=== PATIENT | female | born 1940 | race Caucasian/White ===

== ENCOUNTER 2016-09-17 04:26 | Inpatient (IN) | payer MEDICARE, MEDICAID ==
[2016-09-17 04:52] LABS: BASOPHILS % (AUTO) 0.4 %; HCT - HEMATOCRIT 50.3 % (37.0-47.0); HGB - HEMOGLOBIN 16.6 g/dL (12.0-16.0); LYMPHOCYTES # (AUTO) 0.8 10^3/uL (1.5-3.5); MEAN CORPUSCULAR HEMOGLOBIN 33.1 pg (27.0-31.0); MEAN CORPUSCULAR HGB CONC 32.9 g/dL (32.0-36.0); MEAN CORPUSCULAR VOLUME 100.4 fL (81.0-99.0); MEAN PLATELET VOLUME 8.7 fL (7.9-10.8); MONOCYTES # (AUTO) 0.6 10^3/uL (0.0-1.0); MONOCYTES % (AUTO) 4.2 %; NEUTROPHILS # (AUTO) 12.1 10^3/uL (1.5-6.6); NEUTROPHILS % (AUTO) 89.4 %; RED BLOOD COUNT 5.01 10^6/uL (4.20-5.40); RED CELL DISTRIBUTION WIDTH 14.5 % (12.0-15.0); UNCORRECTED WHITE BLOOD COUNT 13.5 x10^3/uL; WHITE BLOOD COUNT 13.5 x10^3/uL (4.8-10.8)
[2016-09-17] MEDS ORDERED: ONDANSETRON 4 MG/2 ML VIAL IVP STA (05:00)
[2016-09-17 05:11] LABS: BILIRUBIN,URINE NEGATIVE (NEGATIVE)
[2016-09-17] MEDS ORDERED: SODIUM CHLORIDE 0.9% 1,000 ML IV ONE (05:11)
[2016-09-17 05:12] LABS: UA w/ MICROSCOPIC CHARGE YES
[2016-09-17 05:14] LABS: WBC,URINE >25 /HPF (0-5)
[2016-09-17 05:15] LABS: UR CULTURE IF IND INDICATED
--- NOTE | 2016-09-17 05:22 | XRAY Preliminary Report ---
Exam: XR Chest 1 View IMPRESSION: 1. Mild cardiomegaly and pulmonary vascular congestion. 2. Elevated left hemidiaphragm. [facility] SITE ID: [id number]
--- NOTE | 2016-09-17 05:24 | XRAY Report ---
EXAM: CHEST RADIOGRAPHY EXAM DATE: 09/17/2016 05:14 AM. CLINICAL HISTORY: Chest pain and vomiting. COMPARISON: None. TECHNIQUE: 1 view. FINDINGS: Lungs/Pleura: Pulmonary vascular congestion. Elevated left hemidiaphragm. No definite alveolar consol idation or pleural effusion. No pneumothorax. Mediastinum: Mild cardiomegaly. Other: Scoliosis. Osteopenia. Degenerative changes in the shoulders. IMPRESSION: 1. Mild cardiomegaly and pulmonary vascular congestion. 2. Elevated left hemidiaphragm. [facility] Referring Provider Line: [phone] SITE ID: [id number]
[2016-09-17] MEDS ORDERED: ONDANSETRON 4 MG/2 ML VIAL ONE (05:29)
[2016-09-17 05:32] LABS: ALBUMIN/GLOBULIN RATIO 1.3 (1.0-2.2); BUN - BLOOD UREA NITROGEN 8 mg/dL (6-20); CALCIUM 9.8 mg/dL (8.5-10.3); CARBON DIOXIDE - CO2 32 mmol/L (21-32); CHLORIDE 99 mmol/L (101-111); CREATININE 0.4 mg/dL (0.4-1.0); GFR - MDRD 155 (>89); GLUCOSE 200 mg/dL (70-100); LIPASE > 4800 U/L (22-51); POTASSIUM 2.9 mmol/L (3.5-5.0); SODIUM 140 mmol/L (135-145); TOTAL PROTEIN 7.2 g/dL (6.7-8.2)
--- NOTE | 2016-09-17 06:16 | ED Physician Documentation ---
PD HPI NVD - Stated complaint Stated Complaint: VOMITING,CHEST PAIN - Chief complaint Chief Complaint: General - History obtained from History obtained from: Patient, Family - History of Present Illness Timing - onset: Today Timing - details: Gradual onset, Still present Associated symptoms: Abdominal pain, Chest pain. No: Fever, Hematemesis, Melena Contributing factors: No: Sick contact Similar symptoms before: No diagnosis Recently seen: Not recently seen - Additonal information Additional information: Patient is a 75 year old female with a history of htn who is presenting to the emergency department for abdominal pain, nausea and vomiting. Family states that it started earlier today with a few episodes of vomiting, and one bowel movement, but no diarrhea. Patient also developed chest pain later tonight which prompted the family to bring the patient in for evaluation. Review of Systems Constitutional: denies: Fever, Chills Eyes: denies: Decreased vision Ears: denies: Ear pain, Drainage/discharge Nose: denies: Rhinorrhea / runny nose, Congestion Throat: denies: Dental pain / toothache, Oral lesions / sores Cardiac: denies: Chest pain / pressure Respiratory: denies: Dyspnea, Cough GI: reports: Abdominal Pain, Nausea, Vomiting. denies: Constipation : reports: Discharge. denies: Dysuria, Frequency, Hesitancy Skin: denies: Rash, Lesions Musculoskeletal: denies: Neck pain, Back pain Neurologic: denies: Generalized weakness, Focal weakness, Numbness Immunocompromised: denies: Immunocompromised PD PAST MEDICAL HISTORY - Past Medical History Past Medical History: Yes Cardiovascular: Hypertension Neuro: Dementia, Other Endocrine/Autoimmune: Other HEENT: Macular degeneration Other Past Medical History: Polio as a child, Paralyzed waist down - Past Surgical History Past Surgical History: Yes General: Appendectomy /RUSSIAN RUBBER: section - Present Medications Home Medications: Ambulatory Orders Medication Instructions Recorded Confirmed Metoprolol Succinate 50 mg PO DAILY 09/17/16 09/17/16 Spironolactone 25 mg PO DAILY 09/17/16 09/17/16 traZODone [Desyrel] 50 mg PO HS 09/17/16 09/17/16 - Allergies Allergies/Adverse Reactions: Allergies Allergy/AdvReac Type Severity Reaction Status Date / Time No Known Drug Allergies Allergy Verified 09/17/16 04:36 - Social History Does the pt smoke?: No Smoking Status: Former smoker Does the pt drink ETOH?: No Does the pt have substance abuse?: No - Immunizations Immunizations are current?: Yes - POLST Patient has POLST: No PD ED PE NORMAL - Vitals Vital signs reviewed: Yes - General General: Alert and oriented X 3 - HEENT HEENT: Atraumatic, PERRL - Neck Neck: No JVD - Derm Derm: Normal color, Warm and dry, No rash - Extremities Extremities: No deformity - Neuro Neuro: Alert and oriented X 3 PD ED PE EXPANDED - General General: Alert, In distress - HEENT HEENT: Dry mucous membranes - Cardiac Cardiac: Regular Rate, Abnormal Rate - Abdomen Abdomen: Tender to palpation, Generalized/diffuse. No: Rebound, Guarding - Back Back: Other (scoliosis) Results - Vitals Vitals: Vital Signs - 24 hr 09/17/16 09/17/16 09/17/16 04:31 05:05 07:05 Temperature 36.9 C Heart Rate 88 85 79 Respiratory 18 16 17 Rate Blood Pressure 183/101 H 145/81 H 157/95 H O2 Saturation 95 96 99 Oxygen O2 Source Room air - EKG (time done) 0445 Rate: Rate (enter#) (77) Rhythm: NSR [place]: Normal Intervals: Normal MI Ischemia: T wave inversion Compare to prior EKG: Old EKG unavailable - Labs Labs: Laboratory Tests 09/17/16 09/17/16 09/17/16 04:44 04:44 04:44 WBC 13.5 H RBC 5.01 Hgb 16.6 H Hct 50.3 H MCV 100.4 H MCH 33.1 H MCHC 32.9 RDW 14.5 Plt Count 153 MPV 8.7 Neut # 12.1 H Lymph # 0.8 L [place] # 0.6 Eos # 0.0 Baso # 0.0 Absolute Nucleated RBC 0.00 Nucleated RBCs 0.0 Sodium 140 Potassium 2.9 L Chloride 99 L Carbon Dioxide 32 Anion Gap 9.0 BUN 8 Creatinine 0.4 Estimated GFR (MDRD) 155 Glucose 200 H Calcium 9.8 Total Bilirubin 1.0 AST 60 H ALT 27 Alkaline Phosphatase 88 Lactate Dehydrogenase Troponin I < 0.04 B-Natriuretic Peptide Total Protein 7.2 Albumin 4.0 Globulin 3.2 Albumin/Globulin Ratio 1.3 Lipase > 4800 H TSH Urine Color Urine Clarity Urine pH Ur Specific [place] Urine Protein Urine Glucose (UA) Urine Ketones Urine Occult Blood Urine Nitrite Urine Bilirubin Urine Urobilinogen Ur Leukocyte Esterase Urine RBC Urine WBC Ur Squamous Epith Cells Urine Bacteria Ur Microscopic Review Urine Culture Comments 09/17/16 09/17/16 09/17/16 04:44 04:44 04:44 WBC RBC Hgb Hct MCV MCH MCHC RDW Plt Count MPV Neut # Lymph # [place] # Eos # Baso # Absolute Nucleated RBC Nucleated RBCs Sodium Potassium Chloride Carbon Dioxide Anion Gap BUN Creatinine Estimated GFR (MDRD) Glucose Calcium Total Bilirubin AST ALT Alkaline Phosphatase Lactate Dehydrogenase 234 H Troponin I B-Natriuretic Peptide 27 Total Protein Albumin Globulin Albumin/Globulin Ratio Lipase TSH 0.89 Urine Color Urine Clarity Urine pH Ur Specific [place] Urine Protein Urine Glucose (UA) Urine Ketones Urine Occult Blood Urine Nitrite Urine Bilirubin Urine Urobilinogen Ur Leukocyte Esterase Urine RBC Urine WBC Ur Squamous Epith Cells Urine Bacteria Ur Microscopic Review Urine Culture Comments 09/17/16 05:00 WBC RBC Hgb Hct MCV MCH MCHC RDW Plt Count MPV Neut # Lymph # [place] # Eos # Baso # Absolute Nucleated RBC Nucleated RBCs Sodium Potassium Chloride Carbon Dioxide Anion Gap BUN Creatinine Estimated GFR (MDRD) Glucose Calcium Total Bilirubin AST ALT Alkaline Phosphatase Lactate Dehydrogenase Troponin I B-Natriuretic Peptide Total Protein Albumin Globulin Albumin/Globulin Ratio Lipase TSH Urine Color YELLOW Urine Clarity SL. CLOUDY Urine pH 8.0 H Ur Specific [place] 1.020 Urine Protein 30 H Urine Glucose (UA) NEGATIVE Urine Ketones TRACE Urine Occult Blood MODERATE H Urine Nitrite POSITIVE H Urine Bilirubin NEGATIVE Urine Urobilinogen 2 H Ur Leukocyte Esterase MODERATE H Urine RBC 6-10 H Urine WBC >25 H Ur Squamous Epith Cells RARE Squamous Urine Bacteria Moderate H Ur Microscopic Review INDICATED Urine Culture Comments INDICATED - Rads (name of study) ct abd pelvis Radiology: Final report received (pancreatic edema, enlarged gallbladder) PD MEDICAL DECISION MAKING - ED course Complexity details: reviewed old records, reviewed results, re-evaluated patient , considered differential, d/w patient, d/w family, d/w health management consultant ED course: Patient was seen and examined at bedside. IV access was gained and labs were drawn. ekg was performed and showed t wave inversion but no st segment elevation. urine was collected. Patient was found to have a urinary tract infection and leukocytosis. patient also had elevated lipase. patient was treated with levaquin for the uti and imaging was ordered. Patient returned from imaging the results were reviewed and showed a likely gallstone pancreatitis. director of instruction surgeon was made aware and he stated he would evaluate the patient. Hospitalist was contacted and made aware and stated they would tell the oncoming doctor. Patient was admitted for further evaluation and care. Departure - Departure Disposition: 66 [facility] DC/Xfer Clinical Impression: Acute biliary pancreatitis Condition: Stable
[2016-09-17] MEDS ORDERED: IOPAMIDOL-300 100 ML VIAL IVP ONE (06:21)
--- NOTE | 2016-09-17 06:49 | CT Report ---
EXAM: CT ABDOMEN AND PELVIS EXAM DATE: 09/17/2016 06:25 AM. CLINICAL HISTORY: Abdominal pain, vomiting, elevated lipase. COMPARISONS: None. TECHNIQUE: Routine helical CT imaging was performed through the abdomen and pelvis. IV contrast: Ximena onic. Enteric contrast: No. Reconstructions: Coronal and sagittal. In accordance with CT protocol optimization, one or more of the following dose reduction techniques w ere utilized for this exam: automated exposure control, adjustment of mA and/or KV based on patient s ize, or use of iterative reconstructive technique. FINDINGS: Lung Bases: Left basilar atelectasis or infiltrate. Large hiatal hernia containing essentially the en tire stomach. A portion of the splenic flexure is also in the hernia. Coronary artery calcifications. Liver: Possible fatty infiltration. Gallbladder/Bile Ducts: Distended gallbladder with small calcified gallstones. Possible gallbladder w all thickening or pericholecystic fluid. Spleen: Small low-attenuation foci, too small to characterize. Pancreas: Pancreatic edema consistent with pancreatitis. No abscess or pseudocyst identified. Adrenal Glands: Normal. Kidneys: Small right renal cysts. No masses or hydronephrosis. Peritoneal Cavity/Bowel: No bowel obstruction seen. Colonic diverticula without evidence of diverticu litis. No free air or free fluid. No lymphadenopathy. Appendix is not seen. No evidence of appendicit is. Pelvic Organs: Urinary bladder wall thickening. Visualized pelvic organs are otherwise unremarkable. Vasculature: Moderate atherosclerosis. No abdominal aortic aneurysm. Bones: Osteopenia and scoliosis. Hip dysplasia. Other: Extensive muscle atrophy. IMPRESSION: 1. Pancreatic edema consistent with pancreatitis. No acute complication seen. 2. Distended gallbladder with small calcified stones and possible cholecystitis. 3. Large hiatal hernia containing stomach and a portion of the splenic flexure. 4. No bowel obstruction seen. Colonic diverticula without evidence of diverticulitis. 5. Urinary bladder wall thickening which could be due to hypertrophy or cystitis. 6. Osteopenia and scoliosis with hip dysplasia. [facility] Referring Provider Line: [phone] SITE ID: [id number]
[2016-09-17] MEDS ORDERED: MORPHINE 2 MG/ML CARPUJECT IVP PRN (07:26)
[2016-09-17] MEDS ORDERED: ONDANSETRON ODT 4 MG TABLET TL PRN (07:26)
[2016-09-17] MEDS ORDERED: SODIUM CHLORIDE FLUSH 0.9% 10 ML SYRINGE IVP PRN (07:26)
[2016-09-17] MEDS: AMPICILLIN/SULBACTAM 3 GM in SODIUM CHLORIDE 0.9% MINIBAG 100 ML IV STA ×2 (07:45→07:51)
[2016-09-17 09:01] LABS: CHOL/HDL RATIO 3.6 (<4.4); CHOLESTEROL 216 mg/dL; HDL CHOLESTEROL 60 mg/dL; LDL/HDL RATIO 2.1 (<4.4); TRIGLYCERIDES 150 mg/dL; VLDL CHOLESTEROL 30 mg/dL
[2016-09-17] MEDS: SODIUM CHLORIDE 0.9% 1,000 ML IV SCH ×2 (09:06→19:33)
[2016-09-17] MEDS: PIPERACILLIN/TAZOBACTAM 3.375 GM in SODIUM CHLORIDE 0.9% MINIBAG 100 ML IV SCH ×3 (09:06→20:10)
[2016-09-17] MEDS: POLYETHYLENE GLYCOL 3350 17 GM PACKET PO SCH (09:12)
[2016-09-17] MEDS: METOPROLOL SUCCINATE 50 MG TABLET PO SCH (09:13)
[2016-09-17] MEDS: traZODone 50 MG TABLET PO SCH ×2 (09:13→22:20)
[2016-09-17] MEDS: SPIRONOLACTONE 25 MG TABLET PO SCH (09:13)
[2016-09-17] MEDS: POTASSIUM CHLOR 10 MEQ/100 ML 100 ML IV SCH ×6 (10:17→18:29)
[2016-09-17] MEDS: SODIUM CHLORIDE FLUSH 0.9% 10 ML SYRINGE IVP SCH ×2 (13:19→15:30)
[2016-09-17] MEDS ORDERED: LORazepam 2 MG/ML SYRINGE IVP STA (14:33)
--- NOTE | 2016-09-17 17:58 | HISTORY & PHYSICAL EXAMINATION ---
Chief Complaint - Chief Complaint Chief Complaint: abdominal pain History of Present Illness - Admitted From Admitted From:: emergency department - History Obtained From Records Reviewed: yes History obtained from: patient and her family Exam Limitations: none - History of Present Illness HPI Comment/Other: Patient is a 75-year-old female with a past medical history significant for hypertension, borderline diabetes, dementia, hyperlipidemia, childhood polio with paraplegia, macular degeneration and history of a goiter who presented to the emergency department with a chief complaint of abdominal pain. According to the patient's family and the patient the patient has been having symptoms for the past month where she does get nauseated and bloated after eating. She states that she attributed the symptoms to gas and wasn't overly concerned because they occurred off and on. The patient states that she was in her normal state of health when she went to sleep last night. She states that she woke up at 4:30 AM and she felt nauseated and had to vomit. She states at the same time she began to have excruciating abdominal pain she states that the pain was located in the right upper quadrant. The pain was without any radiation. Patient 's daughter gave her Pepto-Bismol and this patient's symptoms seemed to settle down. The patient went back to bed however less than an hour later the patient woke up with excruciating pain and again vomited. The patient otherwise denies any fevers or chills. The patient denies any headaches blurred vision runny nose or sore throat. The patient denies any chest pain, shortness of air, PND, orthopnea, or any increased lower extremity swelling. The patient also denies any urinary urgency, frequency, dysuria. On presentation to the emergency department the patient was hypertensive and appeared to be in significant distress. Patient's distress with improved after she was given IV pain medication and antiemetics. The patient was found to have an elevated leukocytosis of 13.5 with hypokalemia, lipase of greater than 4800 and a grossly positive UA. CT of the patient's abdomen and pelvis revealed pancreatic edema consistent with pancreatitis. Also there was a distended gallbladder with small calcified stones and possible cholecystitis. The patient was admitted to the medical [facility] for treatment of acute pancreatitis likely secondary to gallstones with acute cholecystitis and cystitis. Patient was started on IV Zosyn, IV fluids, IV narcotics and IV antiemetics. Review of Systems - Other Findings Other Findings: A comprehensive review of systems was performed the pertinent positives and negatives are stated above in the HPI and the remainder of the review of systems is negative. History - Past Medical History Cardiovascular: reports: Hypertension, High cholesterol Respiratory: reports: Other Neuro: reports: Dementia, Other Endocrine/Autoimmune: reports: Type 2 diabetes, Other GI: reports: None : reports: None HEENT: reports: Macular degeneration Psych: reports: None Musculoskeletal: reports: Paraplegia Derm: reports: None MRSA Hx?: No Other Past Medical History: Polio as a child, Paralyzed waist down, goiter on neck - Past Surgical History General: reports: Appendectomy /TIER IN: reports: section - Family & Social History Family History Comment/Other: The patient's sister had a stroke. Patient's brother and sister both had abdominal aortic aneurysms. The patient's sister had breast cancer. Living arrangement: At home Living Situation: With family Social History Notes: The patient is originally from [place] she and her daughter moved to [place] to be closer to the patient's granddaughter whose is in the [facility]. The patient moved here 10 months ago. She is . She is taking care of by her daughter. The patient did smoke but quit over 50 years ago. She denies any alcohol or drug use. - Substance History Use: Uses substance without health or social issues: NONE Abuse: Recurrent use of substance despite neg consequences: NONE Dependence: Experiences withdrawal or developed tolerances: NONE - POLST Patient has POLST: No POLST Status: Full Code Meds/Allgy - Home Medications Home Medications: Ambulatory Orders Medication Instructions Recorded Confirmed Metoprolol Succinate 50 mg PO DAILY 09/17/16 09/17/16 Spironolactone 25 mg PO DAILY 09/17/16 09/17/16 traZODone [Desyrel] 50 mg PO HS 09/17/16 09/17/16 - Allergies Allergies/Adverse Reactions: Allergies Allergy/AdvReac Type Severity Reaction Status Date / Time No Known Drug Allergies Allergy Verified 09/17/16 04:36 Exam - Vital Signs Reviewed Vital Signs: Yes Vital Signs: Vital Signs x48h Temp Pulse Resp BP Pulse Ox 09/17/16 16:33 36.7 C 60 16 112/83 H 94 09/17/16 14:36 36.5 C 71 16 155/81 H 95 - Physical Exam General Appearance: positive: Alert, Mild distress (pain) Eyes Bilateral: positive: Normal inspection, PERRL, EOMI, No lid inflammation, Conjunctivae nml, No scleral icterus ENT: positive: ENT inspection nml, Pharynx nml, Dry mucous membranes. negative : Purulent nasal drainage, Pharyngeal erythema, Oral lesions Neck: positive: Nml inspection, Thyroid nml, No JVD, Trachea midline. negative : Thyromegaly, Lymphadenopathy (R), Lymphadenopathy (L), Carotid bruit, Tracheal deviation Respiratory: positive: Chest non-tender, No respiratory distress, Breath sounds nml. negative: Wheezes, Rales, Rhonchi Cardiovascular: positive: Regular rate & rhythm, No murmur, No gallop Peripheral Pulses: positive: 2+ Abdomen: positive: No organomegaly, Nml bowel sounds, Tenderness (right upper quadrant with positive Chambers sign. Epigastric). negative: Guarding, Rebound, Hepatomegaly Back: positive: Nml inspection. negative: CVA tenderness (R), CVA tenderness (L ) Skin: positive: Color nml, No rash, Dry. negative: Cyanosis, Pallor Extremities: positive: Non-tender, Full ROM, Nml appearance, No pedal edema Neurologic/Psychiatric: positive: Oriented x3, CN's nml (2-12), Motor nml, Sensation nml, Mood/affect nml Conclusion/Plan - Problem List (1) Pancreatitis, gallstone Conclusion/Plan: Patient presented with abdominal pain, nausea and vomiting Patient's lipase was greater than the 4800 LFTs were mildly elevated The patient is nonalcoholic, triglyceride levels were normal, she is not any medication that cause pancreatitis. Most likely cause of patient's pancreatitis is gallstone pancreatitis specially in the setting of gallstones seen on CT scan with cholecystitis. Plan: N.p.o. IV fluids IV antiemetics IV narcotics Surgery consult for possible cholecystectomy during hospitalization Monitor lipase and amylase daily Monitor LFTs MRCP (2) Cholecystitis Conclusion/Plan: Patient presented with right upper quadrant abdominal pain, nausea, vomiting Patient had leukocytosis but no fever did have positive Chambers sign CT abdomen pelvis did show evidence of cholecystitis. Plan: IV Zosyn IV fluids N.p.o. Surgical consult for cholecystectomy (3) Cystitis Conclusion/Plan: She presented with abdominal pain, nausea, vomiting and had a leukocytosis Urinalysis was grossly positive CT abdomen and pelvis showed evidence of cystitis Plan: IV Zosyn Urine culture pending (4) Hyperglycemia Conclusion/Plan: Patient has history of borderline diabetes her blood sugar on presentation was 200 She could have hyperglycemia secondary to ongoing infection and stress. We will get a A1c if it is elevated patient may need to be started on diabetic treatment with sliding scale insulin (5) Hypokalemia Conclusion/Plan: secondary to vomiting Potassium on presentation 2.9 Replace potassium with K. riders (6) Hypertension Conclusion/Plan: likely secondary to severe pain improved after pain control Monitor closely Continue home medication Continue pain control (7) Prophylactic use of low molecular weight heparin for venous thromboembolism Conclusion/Plan: place on Lovenox while hospitalized - Lab Results Lab results reviewed: Yes Fish Bones: 09/17/16 04:44 09/17/16 04:44 Other Lab Results: Laboratory Results WBC 13.5 x10^3/uL (4.8-10.8) H 09/17/16 04:44 RBC 5.01 10^6/uL (4.20-5.40) 09/17/16 04:44 Hgb 16.6 g/dL (12.0-16.0) H 09/17/16 04:44 Hct 50.3 % (37.0-47.0) H 09/17/16 04:44 MCV 100.4 fL (81.0-99.0) H 09/17/16 04:44 MCH 33.1 pg (27.0-31.0) H 09/17/16 04:44 MCHC 32.9 g/dL (32.0-36.0) 09/17/16 04:44 RDW 14.5 % (12.0-15.0) 09/17/16 04:44 Plt Count 153 10^3/uL (130-450) 09/17/16 04:44 MPV 8.7 fL (7.9-10.8) 09/17/16 04:44 Neut # 12.1 10^3/uL (1.5-6.6) H 09/17/16 04:44 Lymph # 0.8 10^3/uL (1.5-3.5) L 09/17/16 04:44 [place] # 0.6 10^3/uL (0.0-1.0) 09/17/16 04:44 Eos # 0.0 10^3/uL (0.0-0.7) 09/17/16 04:44 Baso # 0.0 10^3/uL (0.0-0.1) 09/17/16 04:44 Absolute Nucleated RBC 0.00 x10^3/uL 09/17/16 04:44 Nucleated RBCs 0.0 /100WBC 09/17/16 04:44 Sodium 140 mmol/L (135-145) 09/17/16 04:44 Potassium 2.9 mmol/L (3.5-5.0) L 09/17/16 04:44 Chloride 99 mmol/L (101-111) L 09/17/16 04:44 Carbon Dioxide 32 mmol/L (21-32) 09/17/16 04:44 Anion Gap 9.0 (6-13) 09/17/16 04:44 BUN 8 mg/dL (6-20) 09/17/16 04:44 Creatinine 0.4 mg/dL (0.4-1.0) 09/17/16 04:44 Estimated GFR (MDRD) 155 (>89) 09/17/16 04:44 Glucose 200 mg/dL (70-100) H 09/17/16 04:44 Calcium 9.8 mg/dL (8.5-10.3) 09/17/16 04:44 Total Bilirubin 1.0 mg/dL (0.2-1.0) 09/17/16 04:44 AST 60 IU/L (10-42) H 09/17/16 04:44 ALT 27 IU/L (10-60) 09/17/16 04:44 Alkaline Phosphatase 88 IU/L (42-121) 09/17/16 04:44 Lactate Dehydrogenase 234 IU/L (91-225) H 09/17/16 04:44 Troponin I < 0.04 ng/mL (<0.49) 09/17/16 04:44 B-Natriuretic Peptide 27 pg/mL (5-100) 09/17/16 04:44 Total Protein 7.2 g/dL (6.7-8.2) 09/17/16 04:44 Albumin 4.0 g/dL (3.2-5.5) 09/17/16 04:44 Globulin 3.2 g/dL (2.1-4.2) 09/17/16 04:44 Albumin/Globulin Ratio 1.3 (1.0-2.2) 09/17/16 04:44 Triglycerides 150 mg/dL (-149) H 09/17/16 04:44 Cholesterol 216 mg/dL (-199) H 09/17/16 04:44 LDL Cholesterol, Calc 126 mg/dL (-129) 09/17/16 04:44 VLDL Cholesterol 30 mg/dL 09/17/16 04:44 HDL Cholesterol 60 mg/dL (60-) 09/17/16 04:44 LDL/HDL Ratio 2.1 (<4.4) 09/17/16 04:44 Cholesterol/HDL Ratio 3.6 (<4.4) 09/17/16 04:44 Lipase > 4800 U/L (22-51) H 09/17/16 04:44 TSH 0.89 uIU/mL (0.34-5.60) 09/17/16 04:44 Urine Color YELLOW 09/17/16 05:00 Urine Clarity SL. CLOUDY (CLEAR) 09/17/16 05:00 Urine pH 8.0 PH (5.0-7.5) H 09/17/16 05:00 Ur Specific [place] 1.020 (1.002-1.030) 09/17/16 05:00 Urine Protein 30 mg/dL (NEGATIVE) H 09/17/16 05:00 Urine Glucose (UA) NEGATIVE mg/dL (NEGATIVE) 09/17/16 05:00 Urine Ketones TRACE mg/dL (NEGATIVE) 09/17/16 05:00 Urine Occult Blood MODERATE (NEGATIVE) H 09/17/16 05:00 Urine Nitrite POSITIVE (NEGATIVE) H 09/17/16 05:00 Urine Bilirubin NEGATIVE (NEGATIVE) 09/17/16 05:00 Urine Urobilinogen 2 E.U./dL (NORMAL) H 09/17/16 05:00 Ur Leukocyte Esterase MODERATE (NEGATIVE) H 09/17/16 05:00 Urine RBC 6-10 /HPF (0-5) H 09/17/16 05:00 Urine WBC >25 /HPF (0-5) H 09/17/16 05:00 Ur Squamous Epith Cells RARE Squamous (<= Few) 09/17/16 05:00 Urine Bacteria Moderate /HPF (None Seen) H 09/17/16 05:00 Ur Microscopic Review INDICATED 09/17/16 05:00 Urine Culture Comments INDICATED 09/17/16 05:00 - Diagnostic Imaging Results Diagnostic Imaging Results: positive: Final report reviewed Diagnostic Imaging Results Comments: CT abdomen and pelvis 1. Pancreatic edema consistent with pancreatitis. No acute complication seen. 2. Distended gallbladder with calcified stone and possible cholecystitis. 3. Large hiatal hernia containing stomach with and a portion of the splenic flexure. 4. No bowel obstruction seen. Colonic diverticula without evidence of diverticulitis. 5. Urinary bladder wall which could due to hypertrophic or cystitis. 6. Osteopenia and scoliosis dysplasia. Chest x-ray 1. Mild cardiomegaly and pulmonary vascular congestion. 2. Elevated left hemidiaphragm - EKG Results EKG Interpreted Independently: Yes EKG Findings: no ST elevations normal sinus rhythm Issues/Core Measures - Anticipated LOS Anticipated Stay Length: 2 or more midnights - DVT/VTE - Prophylaxis VTE/DVT Prophylaxis med ordered at admit?: Yes
--- NOTE | 2016-09-17 18:12 | MRI Preliminary Report ---
Exam: MRI MRCP W/O IMPRESSION: 1. Multiple small gallstones and/or mild, sludge. There appears to be mild gallbladder wall thickenin g with edematous wall and/or mild pericholecystic fluid. This could represent acute cholecystitis in the appropriate clinical setting. A right upper quadrant ultrasound could further evaluate. The commo n duct measures 6.5 mm, within normal limits. No definite choledocholithiasis is seen. Motion artifac t limited. 2. Moderate acute pancreatitis. Otherwise, as above. [facility] SITE ID: [id number]
--- NOTE | 2016-09-17 18:20 | MRI Report ---
EXAM: MR ABDOMEN WITHOUT CONTRAST (MR CHOLANGIOPANCREATOGRAPHY) EXAM DATE: 09/17/2016 04:28 PM. CLINICAL HISTORY: Gallstone pancreatitis, evaluate for common bile duct stone. COMPARISON: CT abdomen and pelvis 09/17/2016. TECHNIQUE: Multiplanar breath-hold T1 and T2 sequences obtained through the abdomen on an MR scanner. Dedicated 2D and 3D MRCP sequences obtained through the biliary and pancreatic ducts. No intravenous contrast given. FINDINGS: Motion artifact limited. Patient unable to hold breath for breath-hold scans. Motion artifact signifi cantly limits multiple sequences including the MRCP images. Liver contour appears within normal limits. No definite focal liver lesion is seen. Multiple small gallstones and/or mild gallbladder sludge. There appears to be mild gallbladder wall t hickening with edematous wall and/or mild pericholecystic fluid. This could represent acute cholecyst itis in the appropriate clinical setting. A right upper quadrant ultrasound could further evaluate. T he common duct measures 6.5 mm, within normal limits. No definite choledocholithiasis is seen. Moderate amount of peripancreatic edema is seen at the head, neck, and body region as seen with acute pancreatitis. No definite pancreatic duct dilatation is seen. No splenomegaly. Possible very tiny splenic cyst. Adrenals appear within normal limits. No hydronephrosis seen in the kidneys. Multiple right renal cysts, the largest seen at the anterior m edial aspect measuring 1.2 cm. No acute bowel findings are seen. The patient has a large hiatal hernia which contains most of the st omach. Thoracolumbar scoliosis. Muscle atrophy. IMPRESSION: 1. Multiple small gallstones and/or mild gallbladder sludge. There appears to be mild gallbladder wal l thickening with edematous wall and/or mild pericholecystic fluid. This could represent acute cholec ystitis in the appropriate clinical setting. A right upper quadrant ultrasound could further evaluate . The common duct measures 6.5 mm, within normal limits. No definite choledocholithiasis is seen. Mot ion artifact limited. 2. Moderate acute pancreatitis. Otherwise, as above. [facility] Referring Provider Line: [phone] SITE ID: [id number]
[2016-09-18] MEDS: SODIUM CHLORIDE 0.9% 1,000 ML IV SCH ×4 (00:07→18:11)
[2016-09-18] MEDS: PIPERACILLIN/TAZOBACTAM 3.375 GM in SODIUM CHLORIDE 0.9% MINIBAG 100 ML IV SCH ×4 (01:37→20:09)
--- NOTE | 2016-09-18 01:59 | SURGERY HX AND PHYSICAL(T) ---
Surgical History & Physical - Chief Complaint/HPI Chief Complaint: Gallstone pancreatitis - PMH/PSH/Social Hx Does the pt have a hx of MRSA?: No Neurological History: Dementia, Other Eyes, Ears, Nose, Throat: Macular degeneration Cardiovascular: Hypertension, High cholesterol Respiratory: Other Skin: None Endocrine/Autoimmune: Type 2 diabetes, Other Gastrointestinal: None Is Patient ?: No Urinary: None Musculoskeletal: Paraplegia Blood Disorders: None Psychiatric: None PMH Other: Polio as a child, Paralyzed waist down, goiter on neck General: Appendectomy Smoking Status: Never smoker Does the pt drink ETOH?: No Does the pt have substance abuse?: No - Family Hx Family Hx: Unremarkable - Home Meds and Allergies Home Medications: Metoprolol Succinate 50 mg PO DAILY 09/17/16 Spironolactone 25 mg PO DAILY 09/17/16 traZODone [Desyrel] 50 mg PO HS 09/17/16 Allergies/Adverse Reactions: Allergies Allergy/AdvReac Type Severity Reaction Status Date / Time No Known Drug Allergies Allergy Verified 09/17/16 04:36 - Review of Systems Constitutional: Poor appetite - Vital Signs Heart Rate: 77 Blood Pressure: 105/88 Temperature: 37.2 C Respiratory Rate: 16 O2 Saturation: 100 Weight (kg): 52.163 kg Height: 1.37 m - Patient Review Patient Review: Problems were reviewed with the patient during this visit. Medications were reviewed with the patient during this visit. Allergies were reviewed this patient during this visit. Pertinent Tests Reviewed: All pertitent test for this patient were reviewed. - Assessment & Plan Assessment and Plan: The computer information is incorrect. Dr. Obando called me (Dr. Carl and not Dr. Nagel) this morning for consultation on this 75-year-old female in order for her to be evaluated for gallstone pancreatitis. The patient was evaluated in room 2208 at [facility] floor. She was evaluated in the presence of her daughter and I believe her 2 granddaughters. The patient is densely demented and this was worsened by some Ativan that she had received. When I evaluated her she could not answer any questions and she was picking at the sheets and blanket on her bed. All the information was gleaned either from the chart or her daughter and granddaughters. The patient has had a history of some chronic right upper quadrant pain but it was never to the point where it was when she came to the hospital. Her appetite is not what it should be and when she had this pain she had just finished eating a turkey sandwich. She apparently really likes turkey sandwiches. There has not been a previous evaluation of her gallbladder. In discussing the symptoms of gallstones the daughter as well as her 2 granddaughters state that she may have had attacks in the past but they were never this severe. She has not been jaundiced. Additionally, the patient review stated above is incorrect as I could not review her medications, allergies or past history with the patient due to her dense dementia. General: 75 year old female, appears older than stated age HEENT: Normocephalic, atraumatic, extraocular movement intact, mucous membranes pink and moist, sclera anicteric and not injected Neck: Supple without pain on palpation, mass or bruit Cardiac: Regular rate and rhythm without rub, gallop, or murmur Chest: Clear to auscultation bilaterally Abdomen: Obese, soft, tender in epigastrium, normoactive bowel sounds, no hepatomegaly, no splenomegaly Genitourinary: Deferred Rectal: Deferred Extremities: Clear evidence of polio in lower extremities. Moving arms and hands with purpose picking at the sheets and blanket. Gait: Not evaluated - patient bed bound. Psychiatric: No orientation. Did not speak one word to me. Plan: Laparoscopic cholecystectomy, possible open cholecystectomy, intraoperative cholangiogram, possible common bile duct exploration as soon as the patient's pancreatitis has resolved. The indications, procedure, alternatives including no surgery, possible risks including infection (deep or superficial), bleeding requiring transfusion (with all of its risks), common bile duct injury and were fully explained to the family and all questions answered. I shakila pictures to help describe what the gallbladder is and how it works. I also explained the pathophysiology. I explained that following the surgery I did not want her lifting anything over 15 pounds for 6 weeks to allow for optimal healing and to decrease the likelihood that a hernia would occur. All questions were fully answered. Verbal consent was obtained and written consent will be obtained. The patient, in preparation for surgery will be nothing by mouth, receive a soap and water shower, and receive 2 g of Ancef with induction. I asked her to contact me with any surgical questions and her concerns and she stated that she would. I asked the family to let me know if there is any way we can make her say at [facility] more comfortable and they stated that they would let me know. 45 minutes of [id number] time spent with the patient and her family, over 80% in discussion and coordination of her care
[2016-09-18] MEDS: SODIUM CHLORIDE FLUSH 0.9% 10 ML SYRINGE IVP SCH ×3 (05:02→22:03)
[2016-09-18 06:29] LABS: BASOPHILS % (AUTO) 0.2 %; EOSINOPHILS % (AUTO) 0.1 %; HCT - HEMATOCRIT 42.2 % (37.0-47.0); HGB - HEMOGLOBIN 13.9 g/dL (12.0-16.0); LYMPHOCYTES # (AUTO) 0.8 10^3/uL (1.5-3.5); LYMPHOCYTES % (AUTO) 12.4 %; MEAN CORPUSCULAR HEMOGLOBIN 33.5 pg (27.0-31.0); MEAN CORPUSCULAR HGB CONC 32.8 g/dL (32.0-36.0); MEAN CORPUSCULAR VOLUME 102.1 fL (81.0-99.0); MEAN PLATELET VOLUME 8.6 fL (7.9-10.8); MONOCYTES # (AUTO) 0.5 10^3/uL (0.0-1.0); MONOCYTES % (AUTO) 7.7 %; NEUTROPHILS % (AUTO) 79.6 %; RED BLOOD COUNT 4.13 10^6/uL (4.20-5.40); RED CELL DISTRIBUTION WIDTH 14.9 % (12.0-15.0); UNCORRECTED WHITE BLOOD COUNT 6.3 x10^3/uL; WHITE BLOOD COUNT 6.3 x10^3/uL (4.8-10.8)
[2016-09-18 06:34] LABS: ALBUMIN/GLOBULIN RATIO 1.2 (1.0-2.2); AMYLASE 388 U/L (28-100); BUN - BLOOD UREA NITROGEN 5 mg/dL (6-20); CALCIUM 8.1 mg/dL (8.5-10.3); CARBON DIOXIDE - CO2 23 mmol/L (21-32); CHLORIDE 108 mmol/L (101-111); CREATININE 0.3 mg/dL (0.4-1.0); GFR - MDRD 216 (>89); GLUCOSE 67 mg/dL (70-100); LIPASE 146 U/L (22-51); MAGNESIUM 1.5 mg/dL (1.7-2.8); PHOSPHORUS 2.7 mg/dL (2.5-4.6); POTASSIUM 3.7 mmol/L (3.5-5.0); SODIUM 138 mmol/L (135-145); TOTAL PROTEIN 5.7 g/dL (6.7-8.2)
[2016-09-18 06:36] LABS: CALCIUM, IONIZED 1.06 mmol/L (1.15-1.33); VBG PH 7.301 (7.31-7.41)
[2016-09-18] MEDS ORDERED: DEXTROSE 50% ABBOJECT 25 GM/50 ML SYRINGE IVP ONE (07:15)
[2016-09-18] MEDS: METOPROLOL SUCCINATE 50 MG TABLET PO SCH (08:05)
[2016-09-18] MEDS: SPIRONOLACTONE 25 MG TABLET PO SCH (08:05)
[2016-09-18 08:06] LABS: HEMOGLOBIN A1C 0.52 g/dL
[2016-09-18] MEDS: POLYETHYLENE GLYCOL 3350 17 GM PACKET PO SCH (10:35)
[2016-09-18] MEDS ORDERED: SODIUM CHLORIDE FLUSH 0.9% 10 ML SYRINGE IVP ONE (14:41)
--- NOTE | 2016-09-18 15:37 | PROVIDER PROGRESS NOTE ---
Assessment/Plan - Problem List (1) Pancreatitis, gallstone Assessment/Plan: Patient presented with abdominal pain, nausea and vomiting Patient's lipase was greater than the 4800 LFTs were mildly elevated The patient is nonalcoholic, triglyceride levels were normal, she is not any medication that cause pancreatitis. Most likely cause of patient's pancreatitis is gallstone pancreatitis specially in the setting of gallstones seen on CT scan with cholecystitis. MRCP negative for CBD stones Lipase improved to 146 and amylase is 388 Patient feeling much better Pain and nausea controlled Plan: Start clear liquid diet Surgery to remove gallbladder in next 1-2 days Continue to monitor (2) Cholecystitis Conclusion/Plan: Patient presented with right upper quadrant abdominal pain, nausea, vomiting Patient had leukocytosis but no fever did have positive Chambers sign CT abdomen pelvis did show evidence of cholecystitis. WBC improved down to 6.3 Patient improving Pain and nausea controlled Plan: COntinue zosyn day 2 SUrgery consulted will remove gallbladder in next 1-2 days (3) Cystitis Conclusion/Plan: She presented with abdominal pain, nausea, vomiting and had a leukocytosis Urinalysis was grossly positive CT abdomen and pelvis showed evidence of cystitis Patient on Zosyn day 2 WBC improved No fevers Awaiting urine culture (4) Hyperglycemia Conclusion/Plan: HbA1C is 5.4 Patient hypoglycemic this morning Will start on liquid diet (5) Hypokalemia Conclusion/Plan: secondary to vomiting Replaced K normal (6) Hypertension Conclusion/Plan: Stable Continue home meds (7) Prophylactic use of low molecular weight heparin for venous thromboembolism Conclusion/Plan: place on Lovenox while hospitalized - Current Meds Current Meds: Current Medications Generic Name Dose Route Start Last Admin Trade Name Kiah PRN Reason Stop Dose Admin Sodium Chloride 1,000 mls @ 150 mls/hr 09/17/16 08:00 09/18/16 10:31 Normal Saline 0.9% IV 150 mls/hr .Q6H40M DARSHANA Administration Piperacillin Sod/Tazobactam 100 mls @ 200 mls/hr 09/17/16 08:00 09/18/16 14:27 Sod 3.375 gm/ Sodium Chloride IV 200 mls/hr Q6H DARSHANA Administration Metoprolol Succinate 50 mg 09/17/16 09:00 09/18/16 08:05 Toprol Xl PO 50 mg DAILY DARSHANA Administration Polyethylene Glycol 17 gm 09/17/16 09:00 09/18/16 10:35 Miralax PO Not Given DAILY DARSHANA Sodium Chloride 10 ml 09/17/16 07:26 09/17/16 17:44 Normal Saline Flush 0.9% IVP 10 ml PRN PRN Administration NEEDED PER PROVIDER ORDERS Sodium Chloride 10 ml 09/17/16 14:00 09/18/16 14:42 Normal Saline Flush 0.9% IVP Not Given Q8HR DARSHANA Spironolactone 25 mg 09/17/16 09:00 09/18/16 08:05 Aldactone PO 25 mg DAILY DARSHANA Administration Trazodone HCl 50 mg 09/17/16 09:00 09/17/16 22:20 Desyrel PO Not Given HS DARSHANA - Lab Result Lab results reviewed: Yes Fish Bone Diagrams: 09/18/16 06:05 09/18/16 06:05 - EKG Results EKG Interpreted Independently: Yes - Diagnostic Imaging Results Diagnostic Imaging Results: Final report reviewed - Additional Planning Condition/Complexity: Improved My Orders: My Active Orders 09/18/16 16:00 Magnesium Oxide [Mag Ox] 400 mg PO DAILYWM 09/18/16 Lunch DIET [Clear Liquid Diet] [DIET] 09/19/16 05:00 AMYLASE [CHEM] DAILYLAB CBC - COMP BLD CT W/AUTO DIFF [HEME] DAILYLAB CMP, RFLX TO IONIZED CA IF [CHEM] DAILYLAB LIPASE [CHEM] DAILYLAB MAGNESIUM [CHEM] DAILYLAB PHOSPHORUS [CHEM] DAILYLAB 09/20/16 05:00 AMYLASE [CHEM] DAILYLAB CBC - COMP BLD CT W/AUTO DIFF [HEME] DAILYLAB CMP, RFLX TO IONIZED CA IF [CHEM] DAILYLAB LIPASE [CHEM] DAILYLAB MAGNESIUM [CHEM] DAILYLAB PHOSPHORUS [CHEM] DAILYLAB 09/21/16 05:00 AMYLASE [CHEM] DAILYLAB CBC - COMP BLD CT W/AUTO DIFF [HEME] DAILYLAB CMP, RFLX TO IONIZED CA IF [CHEM] DAILYLAB LIPASE [CHEM] DAILYLAB MAGNESIUM [CHEM] DAILYLAB PHOSPHORUS [CHEM] DAILYLAB 09/22/16 05:00 AMYLASE [CHEM] DAILYLAB CBC - COMP BLD CT W/AUTO DIFF [HEME] DAILYLAB CMP, RFLX TO IONIZED CA IF [CHEM] DAILYLAB LIPASE [CHEM] DAILYLAB MAGNESIUM [CHEM] DAILYLAB PHOSPHORUS [CHEM] DAILYLAB Consult/Specialty: Surgery Plan Discussed with:: Patient, Family Time Spent: 31-60 minutes Subjective - Subjective Patient Reports: Feeling Better (Patient states her abdominal pain and nausea have resolved. She states her abd is strainer tender. She wants to eat. She denies any fevers.) Nursing Reports: No Complaints Objective Vital Signs: Vital Signs - 24 hr 09/17/16 09/17/16 09/17/16 16:33 20:32 22:14 Temperature 36.7 C 36.4 C L Heart Rate Heart Rate [ 60 75 73 Brachial] Respiratory 16 16 Rate Blood Pressure Blood Pressure [Left Brachial artery] Blood Pressure 112/83 H 155/85 H 150/75 H [Right Brachial artery] O2 Saturation 94 93 09/18/16 09/18/16 09/18/16 00:09 02:17 03:29 Temperature 37.2 C 37.2 C 36.7 C Heart Rate 77 Heart Rate [ 75 77 Brachial] Respiratory 16 16 16 Rate Blood Pressure 105/88 H Blood Pressure [Left Brachial artery] Blood Pressure 134/82 H [Right Brachial artery] O2 Saturation 100 100 99 09/18/16 09/18/16 08:08 13:16 Temperature 36.9 C 37.2 C Heart Rate Heart Rate [ 83 80 Brachial] Respiratory 18 18 Rate Blood Pressure Blood Pressure 125/58 L 160/77 H [Left Brachial artery] Blood Pressure [Right Brachial artery] O2 Saturation 99 95 Oxygen O2 Source Room air I&O (Last 24 Hrs): Intake and Output Totals x24h 09/16/16 09/17/16 09/18/16 23:59 23:59 23:59 Intake Total 3374 2596 Output Total 200 300 Balance 3174 2296 General: Alert, Oriented x3, Cooperative, No acute distress HEENT: Atraumatic, PERRLA, EOMI, Mucous membr. moist/pink Neck: Supple, No JVD, No thyromegaly, +2 carotid pulse wo bruit, No LAD Lymphatic: no adenopathy Neuro: Alert, Non Focal, CN 2-12 Grossly Intact, Oriented Times 3 Cardiovascular: Regular rate, Normal S1, Normal S2, No murmurs Respiratory: Chest non-tender, No respiratory distress, Breath sounds nml Abdomen: Normal bowel sounds, Other (Mildly tender in the RUQ much improved) Extremities: No clubbing, No cyanosis, No edema, Normal pulses Skin: No rashes, No breakdown - Results Results: Laboratory Results WBC 6.3 x10^3/uL (4.8-10.8) 09/18/16 06:05 RBC 4.13 10^6/uL (4.20-5.40) L 09/18/16 06:05 Hgb 13.9 g/dL (12.0-16.0) 09/18/16 06:05 Hct 42.2 % (37.0-47.0) 09/18/16 06:05 MCV 102.1 fL (81.0-99.0) H 09/18/16 06:05 MCH 33.5 pg (27.0-31.0) H 09/18/16 06:05 MCHC 32.8 g/dL (32.0-36.0) 09/18/16 06:05 RDW 14.9 % (12.0-15.0) 09/18/16 06:05 Plt Count 103 10^3/uL (130-450) L 09/18/16 06:05 MPV 8.6 fL (7.9-10.8) 09/18/16 06:05 Neut # 5.0 10^3/uL (1.5-6.6) 09/18/16 06:05 Lymph # 0.8 10^3/uL (1.5-3.5) L 09/18/16 06:05 [place] # 0.5 10^3/uL (0.0-1.0) 09/18/16 06:05 Eos # 0.0 10^3/uL (0.0-0.7) 09/18/16 06:05 Baso # 0.0 10^3/uL (0.0-0.1) 09/18/16 06:05 Absolute Nucleated RBC 0.00 x10^3/uL 09/18/16 06:05 Nucleated RBCs 0.0 /100WBC 09/18/16 06:05 VBG pH 7.301 (7.31-7.41) L 09/18/16 06:05 Ionized Calcium 1.06 mmol/L (1.15-1.33) L 09/18/16 06:05 Sodium 138 mmol/L (135-145) 09/18/16 06:05 Potassium 3.7 mmol/L (3.5-5.0) 09/18/16 06:05 Chloride 108 mmol/L (101-111) 09/18/16 06:05 Carbon Dioxide 23 mmol/L (21-32) 09/18/16 06:05 Anion Gap 7.0 (6-13) 09/18/16 06:05 BUN 5 mg/dL (6-20) L 09/18/16 06:05 Creatinine 0.3 mg/dL (0.4-1.0) L 09/18/16 06:05 Estimated GFR (MDRD) 216 (>89) 09/18/16 06:05 Glucose 67 mg/dL (70-100) L 09/18/16 06:05 POC Whole Bld Glucose 121 mg/dL (70 - 100) H 09/18/16 07:28 Glycated Hemoglobin 5.4 % (4.6-6.2) 09/18/16 06:05 Estim Average Glucose 108 (70-100) H 09/18/16 06:05 Calcium 8.1 mg/dL (8.5-10.3) L 09/18/16 06:05 Ionized Calcium YES 09/18/16 06:05 Phosphorus 2.7 mg/dL (2.5-4.6) 09/18/16 06:05 Magnesium 1.5 mg/dL (1.7-2.8) L 09/18/16 06:05 Total Bilirubin 1.0 mg/dL (0.2-1.0) 09/18/16 06:05 AST 21 IU/L (10-42) 09/18/16 06:05 ALT 16 IU/L (10-60) 09/18/16 06:05 Alkaline Phosphatase 56 IU/L (42-121) 09/18/16 06:05 Lactate Dehydrogenase 234 IU/L (91-225) H 09/17/16 04:44 Troponin I < 0.04 ng/mL (<0.49) 09/17/16 04:44 B-Natriuretic Peptide 27 pg/mL (5-100) 09/17/16 04:44 Total Protein 5.7 g/dL (6.7-8.2) L 09/18/16 06:05 Albumin 3.1 g/dL (3.2-5.5) L 09/18/16 06:05 Globulin 2.6 g/dL (2.1-4.2) 09/18/16 06:05 Albumin/Globulin Ratio 1.2 (1.0-2.2) 09/18/16 06:05 Triglycerides 150 mg/dL (-149) H 09/17/16 04:44 Cholesterol 216 mg/dL (-199) H 09/17/16 04:44 LDL Cholesterol, Calc 126 mg/dL (-129) 09/17/16 04:44 VLDL Cholesterol 30 mg/dL 09/17/16 04:44 HDL Cholesterol 60 mg/dL (60-) 09/17/16 04:44 LDL/HDL Ratio 2.1 (<4.4) 09/17/16 04:44 Cholesterol/HDL Ratio 3.6 (<4.4) 09/17/16 04:44 Amylase 388 U/L (28-100) H 09/18/16 06:05 Lipase 146 U/L (22-51) H 09/18/16 06:05 TSH 0.89 uIU/mL (0.34-5.60) 09/17/16 04:44 Urine Color YELLOW 09/17/16 05:00 Urine Clarity SL. CLOUDY (CLEAR) 09/17/16 05:00 Urine pH 8.0 PH (5.0-7.5) H 09/17/16 05:00 Ur Specific [place] 1.020 (1.002-1.030) 09/17/16 05:00 Urine Protein 30 mg/dL (NEGATIVE) H 09/17/16 05:00 Urine Glucose (UA) NEGATIVE mg/dL (NEGATIVE) 09/17/16 05:00 Urine Ketones TRACE mg/dL (NEGATIVE) 09/17/16 05:00 Urine Occult Blood MODERATE (NEGATIVE) H 09/17/16 05:00 Urine Nitrite POSITIVE (NEGATIVE) H 09/17/16 05:00 Urine Bilirubin NEGATIVE (NEGATIVE) 09/17/16 05:00 Urine Urobilinogen 2 E.U./dL (NORMAL) H 09/17/16 05:00 Ur Leukocyte Esterase MODERATE (NEGATIVE) H 09/17/16 05:00 Urine RBC 6-10 /HPF (0-5) H 09/17/16 05:00 Urine WBC >25 /HPF (0-5) H 09/17/16 05:00 Ur Squamous Epith Cells RARE Squamous (<= Few) 09/17/16 05:00 Urine Bacteria Moderate /HPF (None Seen) H 09/17/16 05:00 Ur Microscopic Review INDICATED 09/17/16 05:00 Urine Culture Comments INDICATED 09/17/16 05:00
[2016-09-18] MEDS: MAGNESIUM OXIDE 400 MG TABLET PO SCH (15:54)
[2016-09-18] MEDS: ONDANSETRON 4 MG/2 ML VIAL IVP PRN (20:14)
[2016-09-18] MEDS: traZODone 50 MG TABLET PO SCH (22:03)
[2016-09-19] MEDS: ONDANSETRON 4 MG/2 ML VIAL IVP PRN (01:36)
[2016-09-19] MEDS: PIPERACILLIN/TAZOBACTAM 3.375 GM in SODIUM CHLORIDE 0.9% MINIBAG 100 ML IV SCH ×2 (01:36→09:14)
[2016-09-19] MEDS: SODIUM CHLORIDE 0.9% 1,000 ML IV SCH ×2 (01:36→09:12)
--- NOTE | 2016-09-19 01:39 | PROVIDER PROGRESS NOTE ---
Subjective - General Admit Date: 09/17/16 Procedure Date: 09/19/16 Post Op Days: 0 - Review of Systems General: positive: No symptoms (Sleeping comfortably with decreased pain.) Objective - Patient Data Reviewed Vital Signs: Yes Vital Signs: Vital Signs x48h Temp Pulse Resp BP Pulse Ox 09/18/16 23:46 37.1 C 77 18 149/87 H 95 Weight: Weight 09/17/16 09/18/16 09/19/16 23:59 23:59 23:59 Weight (kg) 52.163 kg 52.163 kg Intake & Output: Intake and Output Totals x24h 09/17/16 09/18/16 09/19/16 23:59 23:59 23:59 Intake Total 3374 4340 Output Total 200 550 250 Balance 3174 3790 -250 - Lab Results Lab Results: 09/18/16 06:05 09/18/16 06:05 Other Lab Results: Lab Results x24hrs 09/18/16 09/18/16 09/18/16 Range/Units 07:28 06:05 06:05 WBC (4.8-10.8) x10^3/uL RBC (4.20-5.40) 10^6/uL Hgb (12.0-16.0) g/dL Hct (37.0-47.0) % MCV (81.0-99.0) fL MCH (27.0-31.0) pg MCHC (32.0-36.0) g/dL RDW (12.0-15.0) % Plt Count (130-450) 10^3/uL MPV (7.9-10.8) fL Neut # (1.5-6.6) 10^3/uL Lymph # (1.5-3.5) 10^3/uL [place] # (0.0-1.0) 10^3/uL Eos # (0.0-0.7) 10^3/uL Baso # (0.0-0.1) 10^3/uL Absolute Nucleated RBC x10^3/uL Nucleated RBCs /100WBC VBG pH 7.301 L (7.31-7.41) Ionized Calcium 1.06 L YES (1.15-1.33) mmol/L Sodium 138 (135-145) mmol/L Potassium 3.7 (3.5-5.0) mmol/L Chloride 108 (101-111) mmol/L Carbon Dioxide 23 (21-32) mmol/L Anion Gap 7.0 (6-13) BUN 5 L (6-20) mg/dL Creatinine 0.3 L (0.4-1.0) mg/dL Estimated GFR (MDRD) 216 (>89) Glucose 67 L (70-100) mg/dL POC Whole Bld Glucose 121 H (70 - 100) mg/dL Glycated Hemoglobin (4.6-6.2) % Estim Average Glucose (70-100) Calcium 8.1 L (8.5-10.3) mg/dL Phosphorus 2.7 (2.5-4.6) mg/dL Magnesium 1.5 L (1.7-2.8) mg/dL Total Bilirubin 1.0 (0.2-1.0) mg/dL AST 21 (10-42) IU/L ALT 16 (10-60) IU/L Alkaline Phosphatase 56 (42-121) IU/L Total Protein 5.7 L (6.7-8.2) g/dL Albumin 3.1 L (3.2-5.5) g/dL Globulin 2.6 (2.1-4.2) g/dL Albumin/Globulin Ratio 1.2 (1.0-2.2) Amylase 388 H (28-100) U/L Lipase 146 H (22-51) U/L 09/18/16 09/18/16 Range/Units 06:05 06:05 WBC 6.3 (4.8-10.8) x10^3/uL RBC 4.13 L (4.20-5.40) 10^6/uL Hgb 13.9 (12.0-16.0) g/dL Hct 42.2 (37.0-47.0) % MCV 102.1 H (81.0-99.0) fL MCH 33.5 H (27.0-31.0) pg MCHC 32.8 (32.0-36.0) g/dL RDW 14.9 (12.0-15.0) % Plt Count 103 L (130-450) 10^3/uL MPV 8.6 (7.9-10.8) fL Neut # 5.0 (1.5-6.6) 10^3/uL Lymph # 0.8 L (1.5-3.5) 10^3/uL [place] # 0.5 (0.0-1.0) 10^3/uL Eos # 0.0 (0.0-0.7) 10^3/uL Baso # 0.0 (0.0-0.1) 10^3/uL Absolute Nucleated RBC 0.00 x10^3/uL Nucleated RBCs 0.0 /100WBC VBG pH (7.31-7.41) Ionized Calcium (1.15-1.33) mmol/L Sodium (135-145) mmol/L Potassium (3.5-5.0) mmol/L Chloride (101-111) mmol/L Carbon Dioxide (21-32) mmol/L Anion Gap (6-13) BUN (6-20) mg/dL Creatinine (0.4-1.0) mg/dL Estimated GFR (MDRD) (>89) Glucose (70-100) mg/dL POC Whole Bld Glucose (70 - 100) mg/dL Glycated Hemoglobin 5.4 (4.6-6.2) % Estim Average Glucose 108 H (70-100) Calcium (8.5-10.3) mg/dL Phosphorus (2.5-4.6) mg/dL Magnesium (1.7-2.8) mg/dL Total Bilirubin (0.2-1.0) mg/dL AST (10-42) IU/L ALT (10-60) IU/L Alkaline Phosphatase (42-121) IU/L Total Protein (6.7-8.2) g/dL Albumin (3.2-5.5) g/dL Globulin (2.1-4.2) g/dL Albumin/Globulin Ratio (1.0-2.2) Amylase (28-100) U/L Lipase (22-51) U/L - Current Medications Current Medications: Current Medications Generic Name Dose Route Start Last Admin Trade Name Freq PRN Reason Stop Dose Admin Sodium Chloride 1,000 mls @ 150 mls/hr 09/17/16 08:00 09/18/16 18:11 Normal Saline 0.9% IV 150 mls/hr .Q6H40M DARSHANA Administration Piperacillin Sod/Tazobactam 100 mls @ 200 mls/hr 09/17/16 08:00 09/18/16 20:09 Sod 3.375 gm/ Sodium Chloride IV 200 mls/hr Q6H DARSHANA Administration Magnesium Oxide 400 mg 09/18/16 16:00 09/18/16 15:54 Mag Ox PO 400 mg DAILYWM DARSHANA Administration Metoprolol Succinate 50 mg 09/17/16 09:00 09/18/16 08:05 Toprol Xl PO 50 mg DAILY DARSHANA Administration Ondansetron HCl 4 mg 09/17/16 07:26 09/18/16 20:14 Zofran Inj IVP 4 mg Q6HR PRN Administration Nausea / Vomiting Polyethylene Glycol 17 gm 09/17/16 09:00 09/18/16 10:35 Miralax PO Not Given DAILY DARSHANA Sodium Chloride 10 ml 09/17/16 07:26 09/17/16 17:44 Normal Saline Flush 0.9% IVP 10 ml PRN PRN Administration NEEDED PER PROVIDER ORDERS Sodium Chloride 10 ml 09/17/16 14:00 09/18/16 22:03 Normal Saline Flush 0.9% IVP Not Given Q8HR DARSHANA Spironolactone 25 mg 09/17/16 09:00 09/18/16 08:05 Aldactone PO 25 mg DAILY DARSHANA Administration Trazodone HCl 50 mg 09/17/16 09:00 09/18/16 22:03 Desyrel PO Not Given HS DARSHANA - Physical Exam General Appearance: positive: Other (Sleeping soundly.) Respiratory: positive: No respiratory distress, Breath sounds nml Cardiovascular: positive: Regular rate & rhythm Abdomen: positive: Nml bowel sounds, Tenderness (Minimal epigastric.) Skin: positive: Warm, Dry Extremities: positive: Non-tender, Nml appearance Neurologic/Psychiatric: positive: Other Impression/Plan - Problem List Problem List: Laparoscopic cholecystectomy with intraoperative cholangiogram, possible open cholecystectomy, possible common bile duct exploration. The indications, procedure, alternatives including no surgery, possible risks including infection (deep or superficial), bleeding requiring transfusion (with all of its risks), common bile duct injury and were fully explained to the family and all questions answered. Yesterday, I shakila pictures to help describe what the gallbladder is and how it works. I also explained the pathophysiology. I explained that following the surgery I did not want her lifting anything over 15 pounds for 6 weeks to allow for optimal healing and to decrease the likelihood that a hernia would occur. All questions were fully answered. Verbal and today written consent was obtained. The patient, in preparation for surgery will be nothing by mouth, receive a soap and water shower, and receive 2 g of Ancef with induction. I asked her family to contact me with any surgical questions and their concerns and they stated that they would. I asked them to let me know if there is any way we can make her say at [facility] more comfortable and they stated that they would let me know. 45 minutes of [id number] time spent with the patient and her family, over 80% in discussion and coordination of her care
[2016-09-19] MEDS: SODIUM CHLORIDE FLUSH 0.9% 10 ML SYRINGE IVP SCH ×3 (06:08→21:14)
[2016-09-19 06:29] LABS: BASOPHILS % (AUTO) 0.4 %; EOSINOPHILS % (AUTO) 0.1 %; HCT - HEMATOCRIT 42.2 % (37.0-47.0); HGB - HEMOGLOBIN 13.8 g/dL (12.0-16.0); LYMPHOCYTES # (AUTO) 0.9 10^3/uL (1.5-3.5); LYMPHOCYTES % (AUTO) 15.6 %; MEAN CORPUSCULAR HEMOGLOBIN 33.1 pg (27.0-31.0); MEAN CORPUSCULAR HGB CONC 32.8 g/dL (32.0-36.0); MEAN CORPUSCULAR VOLUME 100.9 fL (81.0-99.0); MEAN PLATELET VOLUME 8.2 fL (7.9-10.8); MONOCYTES # (AUTO) 0.5 10^3/uL (0.0-1.0); NEUTROPHILS # (AUTO) 4.1 10^3/uL (1.5-6.6); NEUTROPHILS % (AUTO) 74.9 %; RED BLOOD COUNT 4.18 10^6/uL (4.20-5.40); RED CELL DISTRIBUTION WIDTH 14.4 % (12.0-15.0); UNCORRECTED WHITE BLOOD COUNT 5.5 x10^3/uL; WHITE BLOOD COUNT 5.5 x10^3/uL (4.8-10.8)
[2016-09-19 06:53] LABS: ALBUMIN/GLOBULIN RATIO 1.1 (1.0-2.2); AMYLASE 76 U/L (28-100); BILIRUBIN,TOTAL 1.1 mg/dL (0.2-1.0); BUN - BLOOD UREA NITROGEN < 5 mg/dL (6-20); CARBON DIOXIDE - CO2 26 mmol/L (21-32); CHLORIDE 106 mmol/L (101-111); CREATININE 0.3 mg/dL (0.4-1.0); GFR - MDRD 216 (>89); GLUCOSE 70 mg/dL (70-100); LIPASE 24 U/L (22-51); MAGNESIUM 1.6 mg/dL (1.7-2.8); POTASSIUM 2.9 mmol/L (3.5-5.0); SODIUM 139 mmol/L (135-145); TOTAL PROTEIN 5.9 g/dL (6.7-8.2)
[2016-09-19 06:57] LABS: CALCIUM, IONIZED 1.13 mmol/L (1.15-1.33); VBG PH 7.273 (7.31-7.41)
[2016-09-19] MEDS ORDERED: MAGNESIUM OXIDE 400 MG TABLET PO SCH ×2 (08:00→10:00)
[2016-09-19] MEDS ORDERED: POTASSIUM CHLORIDE 20 MEQ TABLET PO ONE ×2 (08:15→09:57)
[2016-09-19] MEDS ORDERED: CALCIUM GLUCONATE 1,000 MG in SODIUM CHLORIDE 0.9% 50 ML IV ONE (08:45)
[2016-09-19] MEDS ORDERED: SODIUM CHLORIDE 0.9% 50 ML IV ONE (09:22)
[2016-09-19] MEDS: POTASSIUM CHLOR 10 MEQ/100 ML 100 ML IV SCH ×7 (09:38→19:55)
[2016-09-19] MEDS: MAGNESIUM OXIDE 400 MG TABLET PO SCH (09:42)
[2016-09-19] MEDS: NEUTRA-PHOS 250 MG TABLET PO SCH ×3 (09:50→18:16)
[2016-09-19] MEDS: SPIRONOLACTONE 25 MG TABLET PO SCH (09:58)
[2016-09-19] MEDS: METOPROLOL SUCCINATE 50 MG TABLET PO SCH (09:58)
[2016-09-19] MEDS: POLYETHYLENE GLYCOL 3350 17 GM PACKET PO SCH (10:01)
[2016-09-19] MEDS: ceFAZolin 2 GM/50 ML 50 ML IV SCH ×2 (11:10→12:10)
[2016-09-19 11:38] LABS: MAGNESIUM 1.7 mg/dL (1.7-2.8); PHOSPHORUS 2.3 mg/dL (2.5-4.6)
[2016-09-19] MEDS ORDERED: SODIUM CHLORIDE 0.9% 1,000 ML IV ONE (12:18)
[2016-09-19] MEDS ORDERED: GLYCOPYRROLATE 1 MG/5 ML VIAL IVP ONE (12:45)
[2016-09-19] MEDS ORDERED: SUCCINYLCHOLINE 200 MG/10 ML VIAL IVP ONE (12:45)
[2016-09-19] MEDS ORDERED: FLUMAZENIL 0.1 MG/1 ML 5 ML MDV IVP ONE (12:45)
[2016-09-19] MEDS ORDERED: ALBUTEROL NEB 2.5 MG/3 ML INH ONE ×2 (12:45→15:00)
[2016-09-19] MEDS ORDERED: ROCURONIUM 50 MG/5 ML VIAL IVP ONE (12:45)
[2016-09-19] MEDS ORDERED: MIDAZOLAM 2 MG/2 ML VIAL IVP ONE (12:45)
[2016-09-19] MEDS ORDERED: FUROSEMIDE 40 MG/4 ML VIAL IVP ONE (12:45)
[2016-09-19] MEDS ORDERED: fentaNYL 100 MCG/2 ML VIAL IVP ONE (12:45)
[2016-09-19] MEDS ORDERED: NALOXONE 0.4 MG/ML VIAL IVP ONE (12:45)
[2016-09-19] MEDS ORDERED: hydrALAZINE INJ 20 MG/ML VIAL IVP ONE (12:45)
[2016-09-19] MEDS ORDERED: ONDANSETRON 4 MG/2 ML VIAL IVP ONE (12:45)
[2016-09-19] MEDS ORDERED: LIDOCAINE-PF 2% 10 ML AMP SUBQ ONE (12:45)
[2016-09-19] MEDS ORDERED: PHENYLEPHRINE 50 MG/5 ML VIAL IV ONE (12:45)
[2016-09-19] MEDS ORDERED: DEXAMETHASONE 4 MG/ML VIAL IVP ONE (12:45)
[2016-09-19] MEDS ORDERED: PROPOFOL 200 MG/20 ML VIAL IVP ONE (12:45)
[2016-09-19] MEDS ORDERED: LABETALOL 5 MG/1 ML 20 ML MDV IV ONE (12:45)
[2016-09-19] MEDS ORDERED: LACTATED RINGERS 1,000 ML IV ONE (13:02)
[2016-09-19] MEDS ORDERED: IOTHALAMATE MEGLUMINE 50 ML VIAL IVP ONE ×2 (13:09)
[2016-09-19] MEDS ORDERED: BUPIVACAINE 0.5% PF 30 ML VIAL SUBQ ONE ×2 (13:09)
--- NOTE | 2016-09-19 14:19 | PROVIDER PROGRESS NOTE ---
Assessment/Plan - Problem List (1) Pancreatitis, gallstone Assessment/Plan: Patient presented with abdominal pain, nausea and vomiting Patient's lipase was greater than the 4800 LFTs were mildly elevated The patient is nonalcoholic, triglyceride levels were normal, she is not any medication that cause pancreatitis. Most likely cause of patient's pancreatitis is gallstone pancreatitis specially in the setting of gallstones seen on CT scan with cholecystitis. MRCP negative for CBD stones Lipase improved to 24 and amylase is 76 back to normal Patient feeling much better Pain and nausea controlled Plan: Cholecystectomy this afternoon as pancreatitis has resolved Will likely be able to go home tomorrow (2) Cholecystitis Conclusion/Plan: Patient presented with right upper quadrant abdominal pain, nausea, vomiting Patient had leukocytosis but no fever did have positive Chambers sign CT abdomen pelvis did show evidence of cholecystitis. WBC improved down to 5.5 Patient improving Pain and nausea controlled Plan: COntinue zosyn day 3 Cholecystectomy today LIkley home tomorrow (3) Cystitis Conclusion/Plan: She presented with abdominal pain, nausea, vomiting and had a leukocytosis Urinalysis was grossly positive CT abdomen and pelvis showed evidence of cystitis Patient on Zosyn day 3 WBC improved No fevers Urine cx showing gram negative rods, mucoid lactose balancer scale but ID and sensitivities still pending (4) Hypokalemia Conclusion/Plan: K is 2.9 this morning Will replace before surgery Monitor (5) Hypomagnesemia Conclusion/Plan: Mg is a 1.6 this morning Will replace before surgery MOnitor (6) Hypophosphatemia Conclusion/Plan: Phos is 2.0 this morning Will replace before surgery Monitor (7) Hypertension Conclusion/Plan: Stable Continue home meds (8) Prophylactic use of low molecular weight heparin for venous thromboembolism Conclusion/Plan: place on Lovenox while hospitalized - Current Meds Current Meds: Current Medications Generic Name Dose Route Start Last Admin Trade Name Freq PRN Reason Stop Dose Admin Sodium Chloride 1,000 mls @ 150 mls/hr 09/17/16 08:00 09/19/16 09:12 Normal Saline 0.9% IV 150 mls/hr .[id number] DARSHANA Administration Piperacillin Sod/Tazobactam 100 mls @ 200 mls/hr 09/17/16 08:00 09/19/16 09:14 Sod 3.375 gm/ Sodium Chloride IV 200 mls/hr Q6H DARSHANA Administration Cefazolin Sodium/Dextrose 50 mls @ 100 mls/hr 09/19/16 11:00 09/19/16 12:10 Ancef 2 Gm/50 Ml IV 09/19/16 17:00 100 mls/hr ONCE DARSHANA Administration Potassium Chloride 100 mls @ 100 mls/hr 09/19/16 08:30 09/19/16 12:00 Potassium Chloride IV 09/19/16 14:29 100 mls/hr Q1H DARSHANA Administration Magnesium Oxide 400 mg 09/18/16 16:00 09/19/16 09:42 Mag Ox PO 400 mg DAILYWM DARSHANA Administration Magnesium Oxide 400 mg 09/19/16 10:00 09/19/16 11:02 Mag Ox PO 400 mg DAILY@1000 DARSHANA Administration Metoprolol Succinate 50 mg 09/17/16 09:00 09/19/16 09:58 Toprol Xl PO 50 mg DAILY DARSHANA Administration Morphine Sulfate 2 mg 09/17/16 07:26 09/19/16 01:36 Morphine IVP 2 mg Q2HR PRN Administration Pain 8 to 10 Ondansetron HCl 4 mg 09/17/16 07:26 09/19/16 01:36 Zofran Inj IVP 4 mg Q6HR PRN Administration Nausea / Vomiting Polyethylene Glycol 17 gm 09/17/16 09:00 09/19/16 10:01 Miralax PO Not Given DAILY DARSHANA Sodium Chloride 10 ml 09/17/16 07:26 09/17/16 17:44 Normal Saline Flush 0.9% IVP 10 ml PRN PRN Administration NEEDED PER PROVIDER ORDERS Sodium Chloride 10 ml 09/17/16 14:00 09/19/16 06:08 Normal Saline Flush 0.9% IVP Not Given Q8HR DARSHANA Sodium Phosphate 250 mg 09/19/16 08:00 09/19/16 12:04 K-Phos Neutral PO 250 mg TIDWM DARSHANA Administration Spironolactone 25 mg 09/17/16 09:00 09/19/16 09:58 Aldactone PO 25 mg DAILY DARSHANA Administration Trazodone HCl 50 mg 09/17/16 09:00 09/18/16 22:03 Desyrel PO Not Given HS DARSHANA - Lab Result Lab results reviewed: Yes Fish Bone Diagrams: 09/19/16 06:20 09/19/16 10:55 - EKG Results EKG Interpreted Independently: Yes - Diagnostic Imaging Results Diagnostic Imaging Results: Final report reviewed - Additional Planning Condition/Complexity: Improved My Orders: My Active Orders 09/18/16 16:00 Magnesium Oxide [Mag Ox] 400 mg PO DAILYWM 09/19/16 00:01 NPO except Meds at Midnight [DIET] 09/19/16 08:00 Neutra-Phos [K-Phos Neutral] 250 mg PO TIDWM 09/19/16 08:30 Potassium Chlor 10 Meq/100 ml [Potassium Chloride] 100 ml IV Q1H 09/19/16 10:00 Magnesium Oxide [Mag Ox] 400 mg PO DAILY@1000 09/20/16 05:00 AMYLASE [CHEM] DAILYLAB CBC - COMP BLD CT W/AUTO DIFF [HEME] DAILYLAB CMP, RFLX TO IONIZED CA IF [CHEM] DAILYLAB LIPASE [CHEM] DAILYLAB MAGNESIUM [CHEM] DAILYLAB PHOSPHORUS [CHEM] DAILYLAB 09/21/16 05:00 AMYLASE [CHEM] DAILYLAB CBC - COMP BLD CT W/AUTO DIFF [HEME] DAILYLAB CMP, RFLX TO IONIZED CA IF [CHEM] DAILYLAB LIPASE [CHEM] DAILYLAB MAGNESIUM [CHEM] DAILYLAB PHOSPHORUS [CHEM] DAILYLAB 09/22/16 05:00 AMYLASE [CHEM] DAILYLAB CBC - COMP BLD CT W/AUTO DIFF [HEME] DAILYLAB CMP, RFLX TO IONIZED CA IF [CHEM] DAILYLAB LIPASE [CHEM] DAILYLAB MAGNESIUM [CHEM] DAILYLAB PHOSPHORUS [CHEM] DAILYLAB Consult/Specialty: Surgery Plan Discussed with:: Patient, Family Time Spent: 31-60 minutes Subjective - Subjective Patient Reports: Feeling Better (Patient denies any fevers, chills, urinary symptoms, abdominal pain, nausea or vomiting.) Nursing Reports: No Complaints Objective Vital Signs: Vital Signs - 24 hr 09/18/16 09/18/16 09/19/16 16:31 23:46 06:00 Temperature 37.4 C 37.1 C 36.5 C Heart Rate [ 70 77 73 Brachial] Respiratory 18 18 18 Rate Blood Pressure 139/70 H 149/87 H 147/80 H [Left Brachial artery] O2 Saturation 98 95 94 09/19/16 13:36 Temperature 36.8 C Heart Rate [ 83 Brachial] Respiratory 17 Rate Blood Pressure 148/74 H [Left Brachial artery] O2 Saturation 95 Oxygen O2 Source Room air I&O (Last 24 Hrs): Intake and Output Totals x24h 09/17/16 09/18/16 09/19/16 23:59 23:59 23:59 Intake Total 3374 4340 1174 Output Total 200 550 250 Balance 3174 3790 924 General: Alert, Oriented x3, Cooperative, No acute distress, Other (Patient blind and parapelgic) HEENT: Atraumatic, PERRLA, EOMI, Mucous membr. moist/pink Neck: Supple, No JVD, No thyromegaly, +2 carotid pulse wo bruit, No LAD Lymphatic: no adenopathy Neuro: Alert, Non Focal, CN 2-12 Grossly Intact, Oriented Times 3, Other ( Parapelgia) Cardiovascular: Regular rate, Normal S1, Normal S2, No murmurs Respiratory: Chest non-tender, No respiratory distress, Breath sounds nml Abdomen: Normal bowel sounds, Soft, Other (Mild tenderness but improved in epigastric area and RUQ, no peritoneal signs) Extremities: No clubbing, No cyanosis, No edema, Normal pulses, Other ( parapelgia) Skin: No rashes, No breakdown - Results Results: Laboratory Results WBC 5.5 x10^3/uL (4.8-10.8) 09/19/16 06:20 RBC 4.18 10^6/uL (4.20-5.40) L 09/19/16 06:20 Hgb 13.8 g/dL (12.0-16.0) 09/19/16 06:20 Hct 42.2 % (37.0-47.0) 09/19/16 06:20 MCV 100.9 fL (81.0-99.0) H 09/19/16 06:20 MCH 33.1 pg (27.0-31.0) H 09/19/16 06:20 MCHC 32.8 g/dL (32.0-36.0) 09/19/16 06:20 RDW 14.4 % (12.0-15.0) 09/19/16 06:20 Plt Count 99 10^3/uL (130-450) L 09/19/16 06:20 MPV 8.2 fL (7.9-10.8) 09/19/16 06:20 Neut # 4.1 10^3/uL (1.5-6.6) 09/19/16 06:20 Lymph # 0.9 10^3/uL (1.5-3.5) L 09/19/16 06:20 Benzie # 0.5 10^3/uL (0.0-1.0) 09/19/16 06:20 Eos # 0.0 10^3/uL (0.0-0.7) 09/19/16 06:20 Baso # 0.0 10^3/uL (0.0-0.1) 09/19/16 06:20 Absolute Nucleated RBC 0.00 x10^3/uL 09/19/16 06:20 Nucleated RBCs 0.0 /100WBC 09/19/16 06:20 VBG pH 7.273 (7.31-7.41) L 09/19/16 06:20 Ionized Calcium 1.13 mmol/L (1.15-1.33) L 09/19/16 06:20 Sodium 139 mmol/L (135-145) 09/19/16 06:20 Potassium 3.2 mmol/L (3.5-5.0) L 09/19/16 10:55 Chloride 106 mmol/L (101-111) 09/19/16 06:20 Carbon Dioxide 26 mmol/L (21-32) 09/19/16 06:20 Anion Gap 7.0 (6-13) 09/19/16 06:20 BUN < 5 mg/dL (6-20) L 09/19/16 06:20 Creatinine 0.3 mg/dL (0.4-1.0) L 09/19/16 06:20 Estimated GFR (MDRD) 216 (>89) 09/19/16 06:20 Glucose 70 mg/dL (70-100) 09/19/16 06:20 POC Whole Bld Glucose 121 mg/dL (70 - 100) H 09/18/16 07:28 Glycated Hemoglobin 5.4 % (4.6-6.2) 09/18/16 06:05 Estim Average Glucose 108 (70-100) H 09/18/16 06:05 Calcium 8.0 mg/dL (8.5-10.3) L 09/19/16 06:20 Ionized Calcium YES 09/19/16 06:20 Phosphorus 2.3 mg/dL (2.5-4.6) L 09/19/16 10:55 Magnesium 1.7 mg/dL (1.7-2.8) 09/19/16 10:55 Total Bilirubin 1.1 mg/dL (0.2-1.0) H 09/19/16 06:20 AST 16 IU/L (10-42) 09/19/16 06:20 ALT 13 IU/L (10-60) 09/19/16 06:20 Alkaline Phosphatase 59 IU/L (42-121) 09/19/16 06:20 Lactate Dehydrogenase 234 IU/L (91-225) H 09/17/16 04:44 Troponin I < 0.04 ng/mL (<0.49) 09/17/16 04:44 B-Natriuretic Peptide 27 pg/mL (5-100) 09/17/16 04:44 Total Protein 5.9 g/dL (6.7-8.2) L 09/19/16 06:20 Albumin 3.1 g/dL (3.2-5.5) L 09/19/16 06:20 Globulin 2.8 g/dL (2.1-4.2) 09/19/16 06:20 Albumin/Globulin Ratio 1.1 (1.0-2.2) 09/19/16 06:20 Triglycerides 150 mg/dL (-149) H 09/17/16 04:44 Cholesterol 216 mg/dL (-199) H 09/17/16 04:44 LDL Cholesterol, Calc 126 mg/dL (-129) 09/17/16 04:44 VLDL Cholesterol 30 mg/dL 09/17/16 04:44 HDL Cholesterol 60 mg/dL (60-) 09/17/16 04:44 LDL/HDL Ratio 2.1 (<4.4) 09/17/16 04:44 Cholesterol/HDL Ratio 3.6 (<4.4) 09/17/16 04:44 Amylase 76 U/L (28-100) 09/19/16 06:20 Lipase 24 U/L (22-51) 09/19/16 06:20 TSH 0.89 uIU/mL (0.34-5.60) 09/17/16 04:44 Urine Color YELLOW 09/17/16 05:00 Urine Clarity SL. CLOUDY (CLEAR) 09/17/16 05:00 Urine pH 8.0 PH (5.0-7.5) H 09/17/16 05:00 Ur Specific [place] 1.020 (1.002-1.030) 09/17/16 05:00 Urine Protein 30 mg/dL (NEGATIVE) H 09/17/16 05:00 Urine Glucose (UA) NEGATIVE mg/dL (NEGATIVE) 09/17/16 05:00 Urine Ketones TRACE mg/dL (NEGATIVE) 09/17/16 05:00 Urine Occult Blood MODERATE (NEGATIVE) H 09/17/16 05:00 Urine Nitrite POSITIVE (NEGATIVE) H 09/17/16 05:00 Urine Bilirubin NEGATIVE (NEGATIVE) 09/17/16 05:00 Urine Urobilinogen 2 E.U./dL (NORMAL) H 09/17/16 05:00 Ur Leukocyte Esterase MODERATE (NEGATIVE) H 09/17/16 05:00 Urine RBC 6-10 /HPF (0-5) H 09/17/16 05:00 Urine WBC >25 /HPF (0-5) H 09/17/16 05:00 Ur Squamous Epith Cells RARE Squamous (<= Few) 09/17/16 05:00 Urine Bacteria Moderate /HPF (None Seen) H 09/17/16 05:00 Ur Microscopic Review INDICATED 09/17/16 05:00 Urine Culture Comments INDICATED 09/17/16 05:00
[2016-09-19] MEDS ORDERED: hydrALAZINE INJ 20 MG/ML VIAL ONE (14:33)
--- NOTE | 2016-09-19 14:36 | OPERATIVE REPORT ---
Operative Report - General Admit Date: 09/17/16 Planned Procedure: Laparoscopic cholecystectomy with IOC, possible CBDE, possible open cholecy Pre-Op Diagnosis: Gallstone pancreatitis Procedure Performed: Laparoscopic cholecystectomy with intra-operative cholangiogram Post Op Diagnosis: Same - Procedure Note Primary Surgeon: Sebastian Carl Anesthesia Provider: Roberto Garcia Anesthesia Technique: General ET tube, Local (30 mL 1/2% marcaine) Pathology: Gallbladder and contents to pathology IV Fluids (mL): 1,300 (Additionally 25 mL of dye was given) Estimated Blood Loss (mL): 100 Urine Output (mL): 450 Complications: None. - Other Other Information/Narrative: OPERATIVE DESCRIPTION/REPORT: After verbal and written informed consent was obtained detailing the risks of infection, bleeding requiring transfusion with its risks, common bile duct injury, and , and after I met with the patient confirming the surgery and the site of the surgery and after initialing the site of the surgery with a surgical marker, the patient was brought to the operative suite and placed supine on the operating table. Great care was taken to avoid pressure points to prevent pressure necrosis or nerve injury. Monitoring devices were applied along with TEDs and pneumatic compressive stockings (to prevent DVT). The patient received preoperative antibiotics for surgical prophylaxis. Roberto Garcia sedated and anethetized the patient for the entire procedure. The patient was prepped and draped in the usual sterile manner. With the patient draped my initials were clearly visible. A "time in" then confirmed that the paitient was identified with 3 identifiers (name, date and medical record number), the history and physical was in the chart, the signed consent confirming the procedure was in the chart, the patient was in the correct position, the aforementioned prophylactic measures were in place or given, we had the correct personel and equipment to complete the procedure and that anesthesia, surgery and nursing were given an opportunity to express any concerns. With the agreement of everyone in the room, we proceeded with the operation. A 2 cm infraumbilical midline incision was made. The fascia was then cleared of subcutaneous tissue using a tonsil clamp. A 1.5 cm incision was then made in the fascia gaining entry into the abdominal cavity without incident. A 12 mm blunt tipped balloon tipped Baltazar cannula was placed in the fascial opening and the ballon inflated in order to occlude the fascial opening. The pneumoperitoneum was then established using carbon dioxide insufflation to a steady state pressure of 16 mmHg. The remaining trocars were then placed into the abdomen under direct vision of the 30 degree laparoscope taking care to make the incisions along Langers lines , spreading the subcutaneous tissues with a tonsil clamp, and confirming the entry site by depressing the abdominal wall prior to insertion of the trocar. A total of three other trocars were placed. The first was a 5 mm trocar in the upper midline position. The second was a 5 mm trocar placed in the anterior axillary line approximately 3 cm above the anterior superior iliac spine. The third was a 5 mm trocar placed to bisect the distance between the second and upper midline trocar. All of the trocars were placed without difficulty. The patient was then placed in reverse Trendelenburg position and was rotated slightly to their left. The gallbladder was then grasped through the second and third trocars and retracted cephalad toward the right shoulder. A laparoscopic dissector was then placed through the upper midline cannula fitted with a manager bridge, and the structures within the triangle of [place] were meticulously dissected free. A Ramires clamp was then inserted through the medial right subcostal port and the distal gallbladder clamped and the needle inserted just above the origin of the cystic duct. There was return of bile and easy flush of saline. Half strength dye was then injected and a cholangiogram was obtained utilizing fluoroscopy. After the cholangiogram clearly showed the ductal anatomy, no filling defects and no obstruction to flow, the cholangiocathter and the Ramires clamp were removed and the cystic duct was doubly clipped proximally and distally. The duct was divided between the clips. The clips were carefully placed to avoid occluding the juncture with the common bile duct. The cystic artery was found medially and slightly posterior to the cystic duct. It was carefully dissected free from its surrounding tissues. A laparoscopic clip sand tester was introduced through the upper midline cannula and used to doubly ligate the cystic artery, proximally and distally. The artery was divided between the clips. After the cystic duct and artery were transected, the gallbladder was dissected from the liver bed using Bovie electrocautery. Prior to complete dissection of the gallbladder from the liver the peritoneal cavity was copiously irrigated with saline and the operative field was examined for persistent blood or bile leaks of which there were none. After complete detachment of the gallbladder from the liver, the video laparoscope was placed through the upper midline 5 mm cannula. The gallbladder was placed in an endopouch that had been inserted in the umbilical port and the pursestring suture pulled tight. All 5 mm port sites were injected with 0.5% marcaine under direct vision at the peritoneal level, fascial level and skin level. The Baltazar cannula was removed and the endopouch containing the gallbladder was removed from the abdomen. Following gallbladder removal, the remaining carbon dioxide was expelled from the abdomen. The umbilical fascial defect was then approximated using two 0 Vicryl sutures each in a figure-8 configuration. All skin incisions were approximated with 4-0 Vicryl in a subcuticular fashion. The skin was prepped with benzoin and steristrips were applied. Dressings were applied. All surgical counts were reported as correct. Having tolerated the procedure well, the patient was subsequently extubated and taken to recovery room in good and stable condition.
[2016-09-19] MEDS ORDERED: SODIUM CHLORIDE FLUSH 0.9% 10 ML SYRINGE IVP PRN (14:42)
[2016-09-19] MEDS ORDERED: ONDANSETRON 4 MG/2 ML VIAL IVP PRN (14:42)
[2016-09-19] MEDS ORDERED: oxyCOD/ACETAMIN 5 MG/325 MG TABLET PO PRN (14:42)
[2016-09-19] MEDS ORDERED: METOCLOPRAMIDE 10 MG/2 ML VIAL IVP PRN (14:42)
[2016-09-19] MEDS ORDERED: NALOXONE 0.4 MG/ML VIAL ONE (14:46)
[2016-09-19] MEDS ORDERED: HYDROmorphone 1 MG/ML SYRINGE IVP PRN (14:47)
[2016-09-19] MEDS ORDERED: SODIUM CHLORIDE 0.9% 10 ML ONE (15:00)
--- NOTE | 2016-09-19 15:12 | XRAY Report ---
INTRAOPERATIVE CHOLANGIOGRAM: 09/19/2016 CLINICAL INDICATION: Cholecystectomy. FINDINGS: Multiple images of an intraoperative cholangiogram demonstrate a patent common bile duct, with spill of contrast into the duodenum. Fluoroscopy time of 41 seconds was provided to Dr. Carl; 5 spot images obtained. IMPRESSION: INTRAOPERATIVE CHOLANGIOGRAM. JOB #: [id number] EXT JOB #:[id number]
[2016-09-19] MEDS ORDERED: FUROSEMIDE 40 MG/4 ML VIAL ONE (15:18)
[2016-09-19] MEDS ORDERED: fentaNYL 100 MCG/2 ML VIAL ONE (15:40)
[2016-09-19] MEDS ORDERED: ACETAMINOPHEN 325 MG TABLET PO PRN (15:47)
[2016-09-19] MEDS ORDERED: oxyCODONE 5 MG TABLET PO PRN (15:47)
[2016-09-19] MEDS ORDERED: PROCHLORPERAZINE 10 MG/2 ML VIAL IVP PRN (15:47)
[2016-09-19] MEDS ORDERED: ALBUTEROL NEB 2.5 MG/3 ML INH PRN (15:47)
--- NOTE | 2016-09-19 15:50 | XRAY Report ---
FRONTAL CHEST: 09/19/2016 CLINICAL INDICATION: Wheezing. COMPARISON: 09/17/2016 FINDINGS: Frontal view of the chest demonstrates an enlarged cardiac silhouette. Bibasilar atelecta sis is present. No pulmonary vascular congestion or interstitial edema is seen. No pneumothorax or effusion. IMPRESSION: BIBASILAR ATELECTASIS. JOB #: [id number] EXT JOB #:[id number]
[2016-09-19] MEDS ORDERED: SODIUM CHLORIDE FLUSH 0.9% 10 ML SYRINGE IVP ONE ×2 (17:12→17:13)
[2016-09-19] MEDS: D5NS W/20 MEQ KCL 1,000 ML IV SCH (17:14)
[2016-09-19] MEDS: CEPHALEXIN 250 MG CAPSULE PO SCH ×2 (18:17→23:24)
[2016-09-19] MEDS: traZODone 50 MG TABLET PO SCH (20:43)
[2016-09-19] MEDS: PHENAZOPYRIDINE 100 MG TABLET PO SCH (22:03)
[2016-09-20] MEDS: D5NS W/20 MEQ KCL 1,000 ML IV SCH (04:27)
[2016-09-20] MEDS: CEPHALEXIN 250 MG CAPSULE PO SCH (05:45)
[2016-09-20] MEDS: SODIUM CHLORIDE FLUSH 0.9% 10 ML SYRINGE IVP SCH (05:46)
[2016-09-20] MEDS: PHENAZOPYRIDINE 100 MG TABLET PO SCH (05:46)
[2016-09-20 06:39] LABS: BASOPHILS % (AUTO) 0.1 %; HCT - HEMATOCRIT 41.1 % (37.0-47.0); HGB - HEMOGLOBIN 13.7 g/dL (12.0-16.0); LYMPHOCYTES # (AUTO) 0.8 10^3/uL (1.5-3.5); LYMPHOCYTES % (AUTO) 9.4 %; MEAN CORPUSCULAR HEMOGLOBIN 33.4 pg (27.0-31.0); MEAN CORPUSCULAR HGB CONC 33.2 g/dL (32.0-36.0); MEAN CORPUSCULAR VOLUME 100.6 fL (81.0-99.0); MEAN PLATELET VOLUME 9.2 fL (7.9-10.8); MONOCYTES # (AUTO) 0.6 10^3/uL (0.0-1.0); MONOCYTES % (AUTO) 7.6 %; NEUTROPHILS % (AUTO) 82.9 %; RED BLOOD COUNT 4.09 10^6/uL (4.20-5.40); UNCORRECTED WHITE BLOOD COUNT 8.5 x10^3/uL; WHITE BLOOD COUNT 8.5 x10^3/uL (4.8-10.8)
[2016-09-20 06:59] LABS: AMYLASE 55 U/L (28-100); BILIRUBIN,TOTAL 0.7 mg/dL (0.2-1.0); BUN - BLOOD UREA NITROGEN < 5 mg/dL (6-20); CALCIUM 8.3 mg/dL (8.5-10.3); CARBON DIOXIDE - CO2 24 mmol/L (21-32); CHLORIDE 105 mmol/L (101-111); GLUCOSE 169 mg/dL (70-100); LIPASE 18 U/L (22-51); MAGNESIUM 1.7 mg/dL (1.7-2.8); PHOSPHORUS 2.2 mg/dL (2.5-4.6); POTASSIUM 4.3 mmol/L (3.5-5.0); SODIUM 137 mmol/L (135-145); TOTAL PROTEIN 6.1 g/dL (6.7-8.2)
[2016-09-20] MEDS ORDERED: PANTOPRAZOLE 40 MG TABLET PO SCH (07:00)
[2016-09-20 07:12] LABS: CALCIUM, IONIZED 1.11 mmol/L (1.15-1.33); VBG PH 7.324 (7.31-7.41)
[2016-09-20] MEDS: NEUTRA-PHOS 250 MG TABLET PO SCH (08:45)
[2016-09-20] MEDS ORDERED: ENOXAPARIN 40 MG/0.4 ML SYRINGE SUBQ SCH (09:00)
[2016-09-20] MEDS: METOPROLOL SUCCINATE 50 MG TABLET PO SCH (09:02)
[2016-09-20] MEDS: POLYETHYLENE GLYCOL 3350 17 GM PACKET PO SCH (09:02)
--- NOTE | 2016-09-20 09:20 | Discharge Plan ---
Discharge Plan Disposition: 01 Home, Self Care Condition: Stable Prescriptions: oxyCODONE/ACET 5/325 [Percocet 5 mg/325 mg] 1 tab PO Q4HR PRN #10 tablet PRN Reason: Pain Cephalexin [Keflex] 250 mg PO Q6HR #16 capsule Potassium Chloride [Klor-Con M20] 20 meq PO DAILY #7 tab.er.prt Diet: Regular Activity Restrictions: Activity as Tolerated Shower Restrictions: No Driving Restrictions: No Weight Bearing: Full Weight Additional Instructions or Follow Up instructions: He presents to the emergency department with abdominal pain, nausea and vomiting. You were found to have pancreatitis secondary to gallstones. He also had cholecystitis and a urinary tract infection. Your pancreatitis resolve with IV fluids and medical management. You underwent surgery to have your gallbladder removed. You did well postoperatively and are being discharged home in stable condition. He will require an additional 4 days of antibiotics for urinary tract infection antibiotic has been prescribed you. We've also prescribed you Percocet for your pain as needed and potassium to take over the next 7 days as her potassium remained low while you were hospitalized. You'll need to followup with your primary care physician in one week. Please contact the surgical clinic if you have any questions regarding your surgery. No Smoking: If you smoke, Please STOP! Call for help.
--- NOTE | 2016-09-20 10:11 | DISCHARGE SUMMARY ---
"Discharge Summary Admit Date: 09/17/16 Discharge Date: 09/20/16 Discharging Provider: Carlos A Mon MD Primary Care Provider: Vikram Armstrong MD Code Status: Attempt Resuscitation Condition at Discharge: Stable Discharge Disposition: 01 Home, Self Care - DIAGNOSES Admission Diagnoses: 1. Gallstone pancreatitis 2. Cholecystitis 3. Cystitis 4. Hyperglycemia 5. Hypokalemia 6. Hypertension 7. DVT prophylaxis Discharge Diagnoses with Status of Each Condition: 1. Gallstone pancreatitis -resolved 2. Cholecystitis -resolved 3. Laparoscopic cholecystectomy - stable 4. Cystitis 5. Hypokalemia 6. Hypomagnesemia 7. Hypophosphatemia 8. Hypocalcemia 9. Hypertension 10. DVT prophylaxis - HPI History of Present Illness: Patient is a 75-year-old female with a past medical history significant for hypertension, borderline diabetes, dementia, hyperlipidemia, childhood polio with paraplegia, macular degeneration and history of a goiter who presented to the emergency department with a chief complaint of abdominal pain. According to the patient's family and the patient the patient has been having symptoms for the past month where she does get nauseated and bloated after eating. She states that she attributed the symptoms to gas and wasn't overly concerned because they occurred off and on. The patient states that she was in her normal state of health when she went to sleep last night. She states that she woke up at 4:30 AM and she felt nauseated and had to vomit. She states at the same time she began to have excruciating abdominal pain she states that the pain was located in the right upper quadrant. The pain was without any radiation. Patient 's daughter gave her Pepto-Bismol and this patient's symptoms seemed to settle down. The patient went back to bed however less than an hour later the patient woke up with excruciating pain and again vomited. The patient otherwise denies any fevers or chills. The patient denies any headaches blurred vision runny nose or sore throat. The patient denies any chest pain, shortness of air, PND, orthopnea, or any increased lower extremity swelling. The patient also denies any urinary urgency, frequency, dysuria. On presentation to the emergency department the patient was hypertensive and appeared to be in significant distress. Patient's distress with improved after she was given IV pain medication and antiemetics. The patient was found to have an elevated leukocytosis of 13.5 with hypokalemia, lipase of greater than 4800 and a grossly positive UA. CT of the patient's abdomen and pelvis revealed pancreatic edema consistent with pancreatitis. Also there was a distended gallbladder with small calcified stones and possible cholecystitis. The patient was admitted to the medical [facility] for treatment of acute pancreatitis likely secondary to gallstones with acute cholecystitis and cystitis. Patient was started on IV Zosyn, IV fluids, IV narcotics and IV antiemetics. - CONSULTS | PROCEDURES Consultations: Sebastian Carl MD General Surgery Procedures: Laparoscopic cholecystectomy with IOC, possible CBDE, possible open cholecy - HOSPITAL COURSE Hospital Course: The patient was treated medically for pancreatitis with IV fluids, electrolyte replacement, pain control and nausea control. Patient's pancreatitis resolve within 2 days of hospitalization. The patient was treated for cholecystitis with IV Zosyn and had cholecystectomy done on 09/19/2016 which was done laparoscopically and went without any complications. Patient was also found to have cystitis for which she was treated initially with IV Zosyn and then switched to by mouth Keflex she will complete 7 days of treatment and was given a prescription for Keflex. Patient did have a number of electrolyte abnormalities while she was hospitalized likely secondary to dehydration from her pancreatitis and infections the patient's electrolytes were replaced while she was hospitalized and she was sent home with oral potassium. The patient was in stable condition at the time of discharge she will follow up with her primary care physician. The patient was prescribed Percocet for pain and Keflex to complete her course for UTI. (1) Pancreatitis, gallstone Assessment/Plan: Patient presented with abdominal pain, nausea and vomiting Patient's lipase was greater than the 4800 LFTs were mildly elevated The patient is nonalcoholic, triglyceride levels were normal, she is not any medication that cause pancreatitis. Most likely cause of patient's pancreatitis is gallstone pancreatitis specially in the setting of gallstones seen on CT scan with cholecystitis. MRCP negative for CBD stones Lipase and amylase improved to normal Patient feeling much better Pain and nausea controlled Underwent Lap Elena on 09/19/2016 Resolved (2) Cholecystitis Conclusion/Plan: Patient presented with right upper quadrant abdominal pain, nausea, vomiting Patient had leukocytosis but no fever did have positive Chambers sign CT abdomen pelvis did show evidence of cholecystitis. WBC improved to normal Pain and nausea controlled Patient was treated with IV zosyn for 3 days Underwent Lap Elena on 09/19/16 Resolved (3) Cystitis Conclusion/Plan: She presented with abdominal pain, nausea, vomiting and had a leukocytosis Urinalysis was grossly positive CT abdomen and pelvis showed evidence of cystitis Patient was on Zosyn for 3 days WBC improved No fevers Urine cx grew klebsiella oxytoca which was susceptible to keflex Patient discharged on Keflex x4 days to complete 7 days of treatment (4) Hypokalemia Conclusion/Plan: Potassium replaced while in hospital Patient sent home on potassium chloride daily for 7 days as K was low at discharge Restarted Aldactone (5) Hypomagnesemia Conclusion/Plan: Replaced while hospitalized (6) Hypophosphatemia Conclusion/Plan: Replaced while hospitalized (7) Hypocalcemia Conclusion/Plan: Replaced while hospitalized (8) Hypertension Conclusion/Plan: Stable Continued home meds (9) Prophylactic use of low molecular weight heparin for venous thromboembolism Conclusion/Plan: place on Lovenox while hospitalized - ALLERGIES Allergies/Adverse Reactions: Allergies Allergy/AdvReac Type Severity Reaction Status Date / Time lorazepam AdvReac Anxiety Verified 09/19/16 18:22 - MEDICATIONS Home Medications: Ambulatory Orders Medication Instructions Recorded Confirmed Metoprolol Succinate 50 mg PO DAILY 09/17/16 09/17/16 Spironolactone 25 mg PO DAILY 09/17/16 09/17/16 traZODone [Desyrel] 50 mg PO HS 09/17/16 09/17/16 Cephalexin [Keflex] 250 mg PO Q6HR #16 capsule 09/20/16 Potassium Chloride [Klor-Con M20] 20 meq PO DAILY #7 tab.er.prt 09/20/16 oxyCODONE/ACET 5/325 [Percocet 5 1 tab PO Q4HR PRN #10 tablet 09/20/16 mg/325 mg] - PHYSICAL EXAM AT DISCHARGE General Appearance: positive: No acute distress, Alert, Other (Blind, parapelgic from polio) Eyes Bilateral: positive: Normal inspection, PERRL, EOMI, No lid inflammation, Conjunctivae nml, No scleral icterus ENT: positive: ENT inspection nml, Pharynx nml, No signs of dehydration. negative: Purulent nasal drainage, Pharyngeal erythema, Oral lesions Neck: positive: Nml inspection, Thyroid nml, No JVD, Trachea midline. negative : Thyromegaly, Lymphadenopathy (R), Lymphadenopathy (L), Carotid bruit, Tracheal deviation Respiratory: positive: Chest non-tender, No respiratory distress, Breath sounds nml. negative: Wheezes, Rales, Rhonchi Cardiovascular: positive: Regular rate & rhythm, No murmur, No gallop Peripheral Pulses: positive: 2+ Abdomen: positive: No organomegaly, Nml bowel sounds, No distention, Tenderness (very mild at surgical site). negative: Guarding, Rebound, Hepatomegaly, Other (Surgical site looks clean) Back: positive: Nml inspection. negative: CVA tenderness (R), CVA tenderness (L ) Skin: positive: Color nml, No rash, Warm Extremities: positive: Non-tender, Full ROM, Nml appearance, No pedal edema Neurologic/Psychiatric: positive: Oriented x3, CN's nml (2-12), Motor nml, Sensation nml, Mood/affect nml - LABS Result Diagrams: 09/20/16 05:07 09/20/16 05:07 Other Lab Results: Laboratory Results WBC 8.5 x10^3/uL (4.8-10.8) 09/20/16 05:07 RBC 4.09 10^6/uL (4.20-5.40) L 09/20/16 05:07 Hgb 13.7 g/dL (12.0-16.0) 09/20/16 05:07 Hct 41.1 % (37.0-47.0) 09/20/16 05:07 MCV 100.6 fL (81.0-99.0) H 09/20/16 05:07 MCH 33.4 pg (27.0-31.0) H 09/20/16 05:07 MCHC 33.2 g/dL (32.0-36.0) 09/20/16 05:07 RDW 15.0 % (12.0-15.0) 09/20/16 05:07 Plt Count 118 10^3/uL (130-450) L 09/20/16 05:07 MPV 9.2 fL (7.9-10.8) 09/20/16 05:07 Neut # 7.0 10^3/uL (1.5-6.6) H 09/20/16 05:07 Lymph # 0.8 10^3/uL (1.5-3.5) L 09/20/16 05:07 [place] # 0.6 10^3/uL (0.0-1.0) 09/20/16 05:07 Eos # 0.0 10^3/uL (0.0-0.7) 09/20/16 05:07 Baso # 0.0 10^3/uL (0.0-0.1) 09/20/16 05:07 Absolute Nucleated RBC 0.00 x10^3/uL 09/20/16 05:07 Nucleated RBCs 0.0 /100WBC 09/20/16 05:07 VBG pH 7.324 (7.31-7.41) 09/20/16 05:07 Ionized Calcium 1.11 mmol/L (1.15-1.33) L 09/20/16 05:07 Sodium 137 mmol/L (135-145) 09/20/16 05:07 Potassium 4.3 mmol/L (3.5-5.0) 09/20/16 05:07 Chloride 105 mmol/L (101-111) 09/20/16 05:07 Carbon Dioxide 24 mmol/L (21-32) 09/20/16 05:07 Anion Gap 8.0 (6-13) 09/20/16 05:07 BUN < 5 mg/dL (6-20) L 09/20/16 05:07 Creatinine TNP 09/20/16 05:07 Estimated GFR (MDRD) TNP 09/20/16 05:07 Glucose 169 mg/dL (70-100) H 09/20/16 05:07 POC Whole Bld Glucose 121 mg/dL (70 - 100) H 09/18/16 07:28 Glycated Hemoglobin 5.4 % (4.6-6.2) 09/18/16 06:05 Estim Average Glucose 108 (70-100) H 09/18/16 06:05 Calcium 8.3 mg/dL (8.5-10.3) L 09/20/16 05:07 Ionized Calcium YES 09/20/16 05:07 Phosphorus 2.2 mg/dL (2.5-4.6) L 09/20/16 05:07 Magnesium 1.7 mg/dL (1.7-2.8) 09/20/16 05:07 Total Bilirubin 0.7 mg/dL (0.2-1.0) 09/20/16 05:07 AST 38 IU/L (10-42) 09/20/16 05:07 ALT 22 IU/L (10-60) 09/20/16 05:07 Alkaline Phosphatase 67 IU/L (42-121) 09/20/16 05:07 Lactate Dehydrogenase 234 IU/L (91-225) H 09/17/16 04:44 Troponin I < 0.04 ng/mL (<0.49) 09/17/16 04:44 B-Natriuretic Peptide 27 pg/mL (5-100) 09/17/16 04:44 Total Protein 6.1 g/dL (6.7-8.2) L 09/20/16 05:07 Albumin 3.1 g/dL (3.2-5.5) L 09/20/16 05:07 Globulin 3.0 g/dL (2.1-4.2) 09/20/16 05:07 Albumin/Globulin Ratio 1.0 (1.0-2.2) 09/20/16 05:07 Triglycerides 150 mg/dL (-149) H 09/17/16 04:44 Cholesterol 216 mg/dL (-199) H 09/17/16 04:44 LDL Cholesterol, Calc 126 mg/dL (-129) 09/17/16 04:44 VLDL Cholesterol 30 mg/dL 09/17/16 04:44 HDL Cholesterol 60 mg/dL (60-) 09/17/16 04:44 LDL/HDL Ratio 2.1 (<4.4) 09/17/16 04:44 Cholesterol/HDL Ratio 3.6 (<4.4) 09/17/16 04:44 Amylase 55 U/L (28-100) 09/20/16 05:07 Lipase 18 U/L (22-51) L 09/20/16 05:07 TSH 0.89 uIU/mL (0.34-5.60) 09/17/16 04:44 Urine Color YELLOW 09/17/16 05:00 Urine Clarity SL. CLOUDY (CLEAR) 09/17/16 05:00 Urine pH 8.0 PH (5.0-7.5) H 09/17/16 05:00 Ur Specific [place] 1.020 (1.002-1.030) 09/17/16 05:00 Urine Protein 30 mg/dL (NEGATIVE) H 09/17/16 05:00 Urine Glucose (UA) NEGATIVE mg/dL (NEGATIVE) 09/17/16 05:00 Urine Ketones TRACE mg/dL (NEGATIVE) 09/17/16 05:00 Urine Occult Blood MODERATE (NEGATIVE) H 09/17/16 05:00 Urine Nitrite POSITIVE (NEGATIVE) H 09/17/16 05:00 Urine Bilirubin NEGATIVE (NEGATIVE) 09/17/16 05:00 Urine Urobilinogen 2 E.U./dL (NORMAL) H 09/17/16 05:00 Ur Leukocyte Esterase MODERATE (NEGATIVE) H 09/17/16 05:00 Urine RBC 6-10 /HPF (0-5) H 09/17/16 05:00 Urine WBC >25 /HPF (0-5) H 09/17/16 05:00 Ur Squamous Epith Cells RARE Squamous (<= Few) 09/17/16 05:00 Urine Bacteria Moderate /HPF (None Seen) H 09/17/16 05:00 Ur Microscopic Review INDICATED 09/17/16 05:00 Urine Culture Comments INDICATED 09/17/16 05:00 - DIAGNOSTIC IMAGING Diagnostic Imaging Results Comments: CT abdomen and pelvis 1. Pancreatic edema consistent with pancreatitis. No acute complication seen. 2. Distended gallbladder with calcified stone and possible cholecystitis. 3. Large hiatal hernia containing stomach with and a portion of the splenic flexure. 4. No bowel obstruction seen. Colonic diverticula without evidence of diverticulitis. 5. Urinary bladder wall which could due to hypertrophic or cystitis. 6. Osteopenia and scoliosis dysplasia. Chest x-ray 1. Mild cardiomegaly and pulmonary vascular congestion. 2. Elevated left hemidiaphragm MRCP Impression: 1. Multiple small gallstones and/or mild gallbladder sludge. It appears to be mild gallbladder wall thickening with edematous wall and/or mild pericholecystic fluid. This could represent acute cholecystitis in the appropriate clinical setting. A right upper quadrant ultrasound could further evaluate. The common duct measures 6.5 mm, within normal limits. No definite Col[place] to cholelithiasis is seen. Motion artifact limited. 2 moderate acute pancreatitis. Operative cholangiogram Impression intraoperative cholangiogram Chest x-ray: Bibasilar atelectasis - FOLLOW UP Follow Up: Patient will complete course of antibiotics for cystitis. She is status post laparoscopic cholecystectomy. She will followup with her primary care physician in one week. Patient was given Percocet as needed for pain and potassium supplements to take for the next week. She was otherwise continued back on her home medications. - TIME SPENT Time Spent in Discharge (Minutes): 45"
[2016-09-20 10:14] VITALS: BP 106/79
== END 2016-09-20 10:55 | disposition home or self-care (01) | DRG 417 ==
LOC: ED 04:26 → MS2 07:26 → ICU 09-19 16:27
PROVIDERS: ADMIT Internal Medicine; ATTEND Internal Medicine
PROC: 0FT44ZZ Resection of Gallbladder, Percutaneous Endoscopic Approach (ICD-10-PCS; principal; 2016-09-19 12:00)
DX: K80.00 Calculus of gallbladder with acute cholecystitis without obstruction (principal); N39.0 Urinary tract infection, site not specified; K85.10 Biliary acute pancreatitis without necrosis or infection; G82.20 Paraplegia, unspecified; R73.03 Prediabetes; N30.90 Cystitis, unspecified without hematuria; B96.89 Other specified bacterial agents as the cause of diseases classified elsewhere; E87.6 Hypokalemia; E83.42 Hypomagnesemia; E83.39 Other disorders of phosphorus metabolism; E83.51 Hypocalcemia; E86.0 Dehydration; E16.2 Hypoglycemia, unspecified; I10 Essential (primary) hypertension; F03.90 Unspecified dementia, unspecified severity, without behavioral disturbance, psychotic disturbance, mood disturbance, and anxiety; E78.5 Hyperlipidemia, unspecified; H35.30 Unspecified macular degeneration; B91 Sequelae of poliomyelitis; Z87.891 Personal history of nicotine dependence; Z86.39 Personal history of other endocrine, nutritional and metabolic disease
CPT/HCPCS: 36415; 51701; 71010; 74177; 74181; 74300; 80053; 80061; 81001; 81003; 82150; 82330; 83036; 83615; 83690; 83735; 83880; 84100; 84132; 84443; 84484; 85025; 87077; 87086; 87150; 93005; 96361; 96365; 96367; 96375; 99283; 99285

== ENCOUNTER 2017-09-09 08:00 | Outpatient (CLI) | payer MEDICARE, MEDICAID ==
[2017-09-09 18:56] LABS: BASOPHILS % (AUTO) 0.5 %; EOSINOPHILS % (AUTO) 0.9 %; HGB - HEMOGLOBIN 14.4 g/dL (12.0-16.0); LYMPHOCYTES # (AUTO) 1.1 10^3/uL (1.5-3.5); LYMPHOCYTES % (AUTO) 29.8 %; MEAN CORPUSCULAR HEMOGLOBIN 32.7 pg (27.0-31.0); MEAN CORPUSCULAR HGB CONC 32.8 g/dL (32.0-36.0); MEAN CORPUSCULAR VOLUME 99.7 fL (81.0-99.0); MEAN PLATELET VOLUME 9.3 fL (7.9-10.8); MONOCYTES # (AUTO) 0.3 10^3/uL (0.0-1.0); MONOCYTES % (AUTO) 8.8 %; NEUTROPHILS # (AUTO) 2.3 10^3/uL (1.5-6.6); PLT - PLATELET COUNT 126 10^3/uL (130-450); RED BLOOD COUNT 4.42 10^6/uL (4.20-5.40); RED CELL DISTRIBUTION WIDTH 15.1 % (12.0-15.0); WHITE BLOOD COUNT 3.9 x10^3/uL (4.8-10.8)
[2017-09-09 19:27] LABS: ALBUMIN/GLOBULIN RATIO 0.9 (1.0-2.2); ALKALINE PHOSPHATASE 89 IU/L (42-121); ALT ALANINE AMINOTRANSFERASE 12 IU/L (10-60); AST ASPARTATE AMINOTRANSFERASE 18 IU/L (10-42); BILIRUBIN,TOTAL 0.8 mg/dL (0.2-1.0); BUN - BLOOD UREA NITROGEN 10 mg/dL (6-20); CALCIUM 8.6 mg/dL (8.5-10.3); CARBON DIOXIDE - CO2 32 mmol/L (21-32); CHLORIDE 103 mmol/L (101-111); GLUCOSE 97 mg/dL (70-100); SODIUM 138 mmol/L (135-145); TOTAL PROTEIN 6.3 g/dL (6.7-8.2)
[2017-09-09 19:28] LABS: CREATININE < 0.3 mg/dL (0.4-1.0); GFR - MDRD 215 (>89)
== END 2017-09-09 08:01 ==
LOC: LAB.N 08:00
PROVIDERS: ATTEND Physician Assistant Medical
DX: I10 Essential (primary) hypertension (principal); R44.3 Hallucinations, unspecified; F32.2 Major depressive disorder, single episode, severe without psychotic features; G30.9 Alzheimer's disease, unspecified; F02.80 Dementia in other diseases classified elsewhere, unspecified severity, without behavioral disturbance, psychotic disturbance, mood disturbance, and anxiety
CPT/HCPCS: 36415; 80053; 85025

== ENCOUNTER 2018-06-24 23:09 | Inpatient (IN) | payer MEDICARE, MEDICAID ==
[2018-06-24] MEDS ORDERED: SODIUM CHLORIDE 0.9% 1,000 ML IV ONE (23:40)
[2018-06-25 00:02] LABS: BASOPHILS # (AUTO) 0.1 10^3/uL (0.0-0.1); BASOPHILS % (AUTO) 1.7 %; HGB - HEMOGLOBIN 13.6 g/dL (12.0-16.0); LYMPHOCYTES # (AUTO) 0.5 10^3/uL (1.5-3.5); LYMPHOCYTES % (AUTO) 7.1 %; MEAN CORPUSCULAR HEMOGLOBIN 33.9 pg (27.0-31.0); MEAN PLATELET VOLUME 8.6 fL (7.9-10.8); MONOCYTES # (AUTO) 0.4 10^3/uL (0.0-1.0); MONOCYTES % (AUTO) 6.3 %; NEUTROPHILS % (AUTO) 84.9 %; PLT - PLATELET COUNT 109 10^3/uL (130-450); RED BLOOD COUNT 4.01 10^6/uL (4.20-5.40); RED CELL DISTRIBUTION WIDTH 17.6 % (12.0-15.0); WHITE BLOOD COUNT 7.1 x10^3/uL (4.8-10.8)
[2018-06-25 00:33] LABS: ALBUMIN 2.3 g/dL (3.2-5.5); ALBUMIN/GLOBULIN RATIO 0.7 (1.0-2.2); BILIRUBIN,TOTAL 2.1 mg/dL (0.2-1.0); CALCIUM 8.4 mg/dL (8.5-10.3); CREATININE 0.5 mg/dL (0.4-1.0); TOTAL PROTEIN 5.4 g/dL (6.7-8.2)
--- NOTE | 2018-06-25 00:33 | CT Report ---
Reason: lethargic Procedure Date: 06/25/2018 Accession Number: [id number] / [id number] Procedure: CT - HEAD WO CPT Code: FULL RESULT: EXAM: CT HEAD EXAM DATE: 06/25/2018 12:10 AM. CLINICAL HISTORY: Lethargic. COMPARISON: None. TECHNIQUE: Multiaxial CT images were obtained from the foramen magnum to the vertex. Reformats: Sagittal and coronal. IV contrast: None. In accordance with CT protocol optimization, one or more of the following dose reduction techniques were utilized for this exam: automated exposure control, adjustment of mA and/or KV based on patient size, or use of iterative reconstructive technique. FINDINGS: Parenchyma: No intraparenchymal hemorrhage. No evidence of mass, midline shift, or CT findings of infarction. Farfan-white differentiation is distinct. Extraaxial Spaces: Normal for age. No subdural or epidural collections identified. Ventricles: Normal in size and position. Sinuses and Orbits: Partial opacification of the left sphenoid. Imaged paranasal sinuses otherwise unremarkable. Opacification of multiple mastoid air cells bilaterally. Prior lens replacement surgery on the left, orbits otherwise unremarkable. Bones: No evidence of fracture or calvarial defect. Other: None. IMPRESSION: 1. No acute or focal intracranial abnormality. 2. Partial opacification of the left sphenoid. Imaged paranasal sinuses otherwise unremarkable. Opacification of multiple mastoid air cells bilaterally. RADIA
[2018-06-25 00:38] LABS: CLARITY,URINE HAZY (CLEAR); GLUCOSE, URINE (UA) NEGATIVE (NEGATIVE); KETONES,URINE (UA) 15 mg/dL (NEGATIVE); LEUKOCYTE ESTERASE, URINE SMALL (NEGATIVE); NITRITE,URINE POSITIVE (NEGATIVE); OCCULT BLOOD,URINE LARGE (NEGATIVE); PROTEIN,URINE 30 mg/dL (NEGATIVE); UROBILINOGEN,URINE 1 (NORMAL) E.U./dL (NORMAL)
[2018-06-25] MEDS ORDERED: SODIUM CHLORIDE 0.9% 1,000 ML IV ONE ×2 (00:38→16:38)
[2018-06-25] MEDS ORDERED: POTASSIUM CHLOR 10 MEQ/100 ML 10 MEQ/100 ML BAG IV ONE (00:38)
--- NOTE | 2018-06-25 00:41 | XRAY Report ---
Reason: lethargic, some cough Procedure Date: 06/25/2018 Accession Number: [id number] / [id number] Procedure: XR - Chest 1 View X-Ray CPT Code: 50540 FULL RESULT: EXAM: CHEST RADIOGRAPHY EXAM DATE: 06/25/2018 12:12 AM. CLINICAL HISTORY: Lethargic, some cough. COMPARISON: 09/19/2016 TECHNIQUE: 1 view. FINDINGS: Lungs/Pleura: No dense consolidation. No large effusion or pneumothorax. No pulmonary edema. Mediastinum: Enlarged cardiac silhouette. Left lower lung opacification consistent with known large hiatal hernia. Other: Severe dextroscoliosis. IMPRESSION: No interval change. Large hiatal hernia. RADIA
[2018-06-25 00:45] LABS: BILIRUBIN,URINE NEGATIVE (NEGATIVE); ICTOTEST,URINE NEGATIVE
[2018-06-25 00:47] LABS: RBC,URINE TNTC /HPF (0-5); SQUAMOUS EPITHELIAL CELL,UR FEW Squamous (<= Few)
[2018-06-25 00:48] LABS: BACTERIA,URINE Many /HPF (None Seen)
[2018-06-25] MEDS ORDERED: cefTRIAXone 1 GM VIAL IVP STA (00:49)
--- NOTE | 2018-06-25 00:55 | ED Physician Documentation ---
PD HPI ALTERED MENTAL STATUS - Stated complaint Stated Complaint: LETHARGIC/FAILURE TO THRIVE - Chief complaint Chief Complaint: General - History obtained from History obtained from: Family - History of Present Illness Timing - onset: How many days ago (4-5) Timing - duration: Days (4-5) Timing - details: Gradual onset (The patient's daughter and granddaughter state she has been having a progressive decrease in alertness and interaction over the last 4 to 5 days. Last day and a half she not been taking any food or fluids despite being offered. She is only opening her eyes to tactile stimulus or verbal today. They called her primary care yesterday where encouraged to give her a lot of fluids. They were given an appointment for next week. The daughter states the patient has not had any fever nor any vomiting or diarrhea. There has been a little bit of a cough but no obvious general head cold per se. It is been mainly just to slow progressive decreased interaction and tiredness and poor responsiveness. The daughter feels she is now dehydrated which makes sense. She had been getting her usual medications. There had not been any r ecent change in doses except for the addition of a blood pressure medicine for which they had not been able to get it from the pharmacy yet.) Quality / character: Less responsive, Disoriented Associated symptoms: Cough, General weakness. No: Fever, Headache, NVD Contributing factors: Known dementia. No: Diabetic, New medication, Recent med change, Recent illness Basline status: Wheelchair (due to paralysis in legs from polio). No: Alert and oriented X 3 (alert and conversant, but has dementia, so not oriented to time.) Similar symptoms before: Has not had sx before Recently seen: Clinic (seen by PMD couple days ago for diminishing LOC and had BP med added, but no other changes, and was encouraged to take fluids.) Review of Systems Unable to obtain: AMS, Other (info from daughter) Constitutional: denies: Fever Nose: denies: Congestion Cardiac: denies: Chest pain / pressure Respiratory: reports: Cough (mild). denies: Dyspnea GI: denies: Vomiting, Diarrhea, Bloody / black stool : reports: Incontinent (chronic) Neurologic: reports: Generalized weakness, Altered mental status. denies: Head injury PD PAST MEDICAL HISTORY - Past Medical History Past Medical History: Yes Cardiovascular: Hypertension, High cholesterol Respiratory: Other Neuro: Alzhiemer's, Dementia (with behavioral disturbance, which has improved with Haldol and Zoloft, started few months ago.), Other (polio when young and has leg paresis/paralysis and left arm weakness, left lung scarring.) Endocrine/Autoimmune: Type 2 diabetes, Other GI: Pancreatitis, Cholelithiasis : Incontinence HEENT: Macular degeneration Psych: Other Musculoskeletal: Paraplegia Derm: None - Past Surgical History Past Surgical History: Yes General: Cholecystectomy, Appendectomy /HEALTH OUTCOMES LIAISON: section - Present Medications Home Medications: Ambulatory Orders Medication Instructions Recorded Confirmed Haloperidol [Haldol] 0.5 mg PO BID 06/24/18 06/24/18 Metoprolol Tartrate 25 mg PO BID 06/24/18 06/24/18 Sertraline [Zoloft] 25 mg PO DAILY 06/24/18 06/24/18 - Allergies Allergies/Adverse Reactions: Allergies Allergy/AdvReac Type Severity Reaction Status Date / Time lorazepam AdvReac Anxiety Verified 06/24/18 23:18 - Social History Does the pt smoke?: No Smoking Status: Never smoker Does the pt drink ETOH?: No Does the pt have substance abuse?: No - Family History Family history: reports: Unknown - Immunizations Immunizations are current?: Yes - POLST Patient has POLST: No POLST Status: Full Code PD ED PE NORMAL - Vitals Vital signs reviewed: Yes - General General: No: Alert and oriented X 3 (poor interaction, no verbal, and only opens eyes to verbal/tactile. Does not follow commands. ), Well developed/nourished (frail and thin.) - HEENT HEENT: Atraumatic, PERRL. No: Moist mucous membranes - Neck Neck: No adenopathy, No bruit - Cardiac Cardiac: RRR, No murmur - Respiratory Respiratory: Clear bilaterally - Abdomen Abdomen: Soft, Non distended. No: Normal bowel sounds (diminished) - Female Female : Deferred - Rectal Rectal: Deferred - Derm Derm: Warm and dry, Other (poor skin turgor). No: Normal color (pale) - Extremities Extremities: No edema, Other (muscle atrophy of both legs. ) - Neuro Eye Opening: To Pain Motor: Localizes to Pain Verbal: None GCS Score: 8 Results - Vitals Vitals: Vital Signs - 24 hr 06/24/18 06/24/18 06/25/18 23:13 23:26 00:49 Temperature 36.4 C L Heart Rate 81 76 69 Respiratory 14 16 14 Rate Blood Pressure 103/70 103/71 127/75 O2 Saturation 98 99 95 Oxygen O2 Source Room air - Labs Labs: Laboratory Tests 06/24/18 06/24/18 06/24/18 23:55 23:55 23:55 WBC 7.1 RBC 4.01 L Hgb 13.6 Hct 38.9 MCV 97.0 MCH 33.9 H MCHC 35.0 RDW 17.6 H Plt Count 109 L MPV 8.6 Neut # (Auto) 6.0 Lymph # (Auto) 0.5 L [place] # (Auto) 0.4 Eos # (Auto) 0.0 Baso # (Auto) 0.1 Absolute Nucleated RBC 0.01 Nucleated RBC % 0.2 Sodium 139 Potassium 1.9 L* Chloride 86 L Carbon Dioxide 33 H Anion Gap 20.0 H BUN 20 Creatinine 0.5 Estimated GFR (MDRD) 119 Glucose 105 H POC Whole Bld Glucose Lactic Acid Calcium 8.4 L Magnesium 2.0 Total Bilirubin 2.1 H AST 23 ALT 13 Alkaline Phosphatase 74 Troponin I 0.05 Total Protein 5.4 L Albumin 2.3 L Globulin 3.1 Albumin/Globulin Ratio 0.7 L Lipase 21 L Urine Color Urine Clarity Urine pH Ur Specific [place] Urine Protein Urine Glucose (UA) Urine Ketones Urine Occult Blood Urine Nitrite Urine Bilirubin Urine Urobilinogen Ur Leukocyte Esterase Urine RBC Urine WBC Ur Squamous Epith Cells Urine Bacteria Ur Microscopic Review Urine Culture Comments 06/24/18 06/25/18 06/25/18 23:55 00:10 00:30 WBC RBC Hgb Hct MCV MCH MCHC RDW Plt Count MPV Neut # (Auto) Lymph # (Auto) [place] # (Auto) Eos # (Auto) Baso # (Auto) Absolute Nucleated RBC Nucleated RBC % Sodium Potassium Chloride Carbon Dioxide Anion Gap BUN Creatinine Estimated GFR (MDRD) Glucose POC Whole Bld Glucose 102 H Lactic Acid 1.9 Calcium Magnesium Total Bilirubin AST ALT Alkaline Phosphatase Troponin I Total Protein Albumin Globulin Albumin/Globulin Ratio Lipase Urine Color YELLOW Urine Clarity HAZY Urine pH 6.0 Ur Specific [place] 1.015 Urine Protein 30 H Urine Glucose (UA) NEGATIVE Urine Ketones 15 H Urine Occult Blood LARGE H Urine Nitrite POSITIVE H Urine Bilirubin NEGATIVE Urine Urobilinogen 1 (NORMAL) Ur Leukocyte Esterase SMALL H Urine RBC TNTC H Urine WBC 11-25 H Ur Squamous Epith Cells FEW Squamous Urine Bacteria Many H Ur Microscopic Review INDICATED Urine Culture Comments INDICATED - Rads (name of study) chest xray Radiology: Prelim report reviewed, EMP read contemporaneously (rotated heart and smaller left lung field, similar to prior. No infiltrates. ), See rad report head CT Radiology: Prelim report reviewed (no acute pintracranial process; opacification of sphenoid sinus and mastoid air cells. ), EMP read contemporaneously (no acute process seen), See rad report PD MEDICAL DECISION MAKING - ED course Complexity details: reviewed results, considered differential, d/w family Departure - Departure Disposition: 66 [facility] DC/Xfer Clinical Impression: Dehydration, Hypokalemia Altered mental status Qualifiers: Altered mental status type: coma Coma depth: [place] coma 3-8 Coma timing: in the field (EMT or ambulance) Qualified Code(s): R40.2431 - Levi coma scale score 3-8, in the field [EMT or ambulance] UTI (urinary tract infection) Qualifiers: Urinary tract infection type: site unspecified Hematuria presence: without hematuria Qualified Code(s): N39.0 - Urinary tract infection, site not specified Condition: Stable Record reviewed to determine appropriate education?: Yes
[2018-06-25] MEDS ORDERED: PROCHLORPERAZINE 10 MG/2 ML VIAL IVP PRN (01:13)
--- NOTE | 2018-06-25 01:33 | HISTORY & PHYSICAL EXAMINATION ---
Chief Complaint - Chief Complaint Chief Complaint: Decreased p.o. intake, Failure to thrive with anorexia, weakness History of Present Illness - Admitted From Admitted From:: ED - History Obtained From Records Reviewed: Yes History obtained from: Family, caregivers, ED Exam Limitations: Yes--AMS due to UTI/Encephalopathy/Alzheimers dementia - History of Present Illness HPI Comment/Other: This is a 77-year-old female with a history of Alzheimer's dementia with behavioral disturbance, OP-dyphagia, for which she was on Zoloft and haloperidol, history of hyperlipidemia, hypertension, goiter, borderline type 2 diabetes mellitus, childhood polio with paraplegia, chronic thrombocytopenia, macular degeneration who apparently stopped taking medications and p.o. intake for more than 24 hours per family who were concerned about patient's decline in mental status as well as furthering anorexia with associated weakness. Patient was taken to Clinic and was seen by PMD couple days ago for diminishing LOC and had BP med added, but no other changes, and was encouraged to take fluids. The patient's daughter and granddaughter state she has been having a progressive decrease in alertness and interaction over the last 4 to 5 days. Last day and a half she not been taking any food or fluids despite being offered. She is only opening her eyes to tactile stimulus or verbal today. They called her primary care yesterday where encouraged to give her a lot of fluids. They were given an appointment for next week. The daughter states the patient has not had any fever nor any vomiting or diarrhea. There has been a little bit of a cough but no obvious general head cold. It is been mainly just to slow progressive decreased interaction and tiredness and poor responsiveness. The daughter feels she is now dehydrated. She had been getting her usual medications. There had not been any recent change in doses except for the addition of a blood pressure medicine for which they had not been able to get it from the pharmacy yet. On initial lab examination patient's potassium was 1.9, CO2 of 20, creatinine 0.5 with a glucose of 102, first set troponin 0.05, WBC 7.1, platelet 109, calcium 8.4, albumin 2.3 with a corrected calcium of 9.8, LFTs within normal limits, lipase within normal limits, lactic acid 1.9, T bilirubin 2.1. Imaging studies showed a CT the head that was unremarkable, chest x-ray showing what appears to be a left lobe abnormality possible scarring from prior polio. EKG showed sinus rhythm with borderline repolarization ST-T wave abnormalities with a prolonged QT. UA showed pyuria plus hematuria with 15+ ketones. Patient was somnolent and lethargic difficult to arouse, poor venous access, patient was given IV fluids in the ED along with Rocephin 1 dose. History - Past Medical History Cardiovascular: reports: Hypertension, High cholesterol Respiratory: reports: Other Neuro: reports: Alzhiemer's, Dementia (with behavioral disturbance, which has improved with Haldol and Zoloft, started few months ago.), Other (polio when young and has leg paresis/paralysis and left arm weakness, left lung scarring.) Endocrine/Autoimmune: reports: Type 2 diabetes, Other GI: reports: Pancreatitis, Cholelithiasis : reports: Incontinence HEENT: reports: Macular degeneration Psych: reports: Other Musculoskeletal: reports: Paraplegia Derm: reports: None MRSA Hx?: No - Past Surgical History General: reports: Cholecystectomy, 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 The patient moved here 10 months ago. She is . She is taking care of by her daughter. The patient did smoke but quit over 50 years ago. She denies any alcohol or drug use. - Substance History Use: Uses substance without health or social issues: NONE - POLST Patient has POLST: No POLST Status: Full Code Meds/Allgy - Home Medications Home Medications: Ambulatory Orders Medication Instructions Recorded Confirmed Haloperidol [Haldol] 0.5 mg PO BID 06/24/18 06/24/18 Metoprolol Tartrate 25 mg PO BID 06/24/18 06/24/18 Sertraline [Zoloft] 25 mg PO DAILY 06/24/18 06/24/18 - Allergies Allergies/Adverse Reactions: Allergies Allergy/AdvReac Type Severity Reaction Status Date / Time lorazepam AdvReac Anxiety Verified 06/24/18 23:18 Review of Systems - All Other Systems All Other Systems: reports: Reviewed and negative Prior Level of Functionality: Patient's functional capacity with baseline paraplegia ambulates via transfer wheelchair, unknown home ADLs Exam - Vital Signs Vital Signs: Vital Signs x48h Temp Pulse Resp BP Pulse Ox 06/25/18 00:49 69 14 127/75 95 06/24/18 23:26 76 16 103/71 99 06/24/18 23:13 36.4 C L 81 14 103/70 98 - Physical Exam General Appearance: positive: Lethargic, Other (Difficult to arouse, ill- appearing/toxic, malnourished) Eyes Bilateral: positive: Normal inspection, No scleral icterus. negative: Conjunctivae nml ENT: positive: Pharynx nml, Dry mucous membranes Neck: positive: Nml inspection, Trachea midline, Thyromegaly (Goiter palpable). negative: No JVD, Stiff neck, Kernig's sign, Carotid bruit, Swelling/bruising Respiratory: positive: Chest non-tender, No respiratory distress, Breath sounds nml Cardiovascular: positive: Regular rate & rhythm, No murmur, No gallop. negative: JVD present Peripheral Pulses: positive: 2+ Abdomen: positive: Non-tender, No organomegaly, Nml bowel sounds, No distention Skin: positive: Color nml, No rash, Warm Extremities: positive: Non-tender, Pedal edema, Other (Atrophy to the bilateral lower extremities, Baseline paraplegia with length discrepancies). negative: Joint swelling Neurologic/Psychiatric: positive: Weakness, Depressed mood/affect, Other (Due to patient's metabolic encephalopathy neurologic and psychiatric examination difficult to ascertain) Reflexes: Knee (R): 0, Knee (L): 0, Ankle (R): 0, Ankle (L): 0 Babinski Reflex: Right: Absent, Left: Absent Conclusion/Plan - Problem List (1) UTI (urinary tract infection) Conclusion/Plan: Present on admission. Patient does not appear to be septic as blood pressures are sustained, afebrile, nontachypneic non-tachycardic, WBC 7.1, lactic acid 1.9. Patient's UA showed pyuria along with hematuria likely from possible cystitis with patient's condition of immobility. Consider retroperitoneal ultrasound however no mention of prior history of nephrolithiasis. Empirically being covered with IV Rocephin, patient is demented with incontinence of urine. Urine culture to follow. Qualifiers: Urinary tract infection type: acute cystitis Hematuria presence: with hematuria Qualified Code(s): N30.01 - Acute cystitis with hematuria (2) Acute metabolic encephalopathy Conclusion/Plan: Acute encephalopathy is multifactorial. Patient has underlying Alzheimer's dementia with behavioral disturbance and was on Zoloft and haloperidol which may be multifactorial metabolic encephalopathy, sugars do not appear to be hyper or hypoglycemic and likely UTI combined with drug-induced encephalopathy on presentation. Will hold haloperidol and Zoloft and other sedate of agents for now. Treat underlying causative infection with IV Rocephin. IV fluids, continue to monitor for improved neurocognitive status. Head CT was unremarkable, TSH to follow. (3) Hypokalemia Conclusion/Plan: Severe hypokalemia with some repolarization seen on EKG but no arrhythmias noted. Magnesium as well as sodium and corrected calcium are all normal. Continue with normal saline with 40 mEq of KCl to run at 150 mL/HR. Will give an additional K-rider of 40 meq over 4 hrs. Unclear if patient's potassium wasting although decrease oral intake may be causing poor absorption at the GI level. (4) Dehydration Conclusion/Plan: Patient presents with moderate to severe dehydration, As evidence with hyperb ilirubinemia 15+ ketones in urine, Clinical poor skin turgor with associated hypokalemia slightly hypotensive on presentation but not hypovolemic requiring pressor support, continue with IV fluid resuscitation, hold off on metoprolol. (5) Alzheimer's dementia with behavioral disturbance Conclusion/Plan: Patient is not on any neurocognitive agents to help with Alzheimer's dementia. Previously noted to be alert and awake but with some mild to moderate neur ocognitive deficits as per family members who have stated that patient abruptly stopped eating and previously had some mild oropharyngeal dysphasia and was on a modified dysphagia type diet with applesauce and other consistencies were medications were being administered and crushed. Head CT shows no CVA or acute pathology. Qualifiers: Alzheimer's disease onset: unspecified onset Qualified Code(s): G30.9 - Alzheimer's disease, unspecified; F02.81 - Dementia in other diseases classified elsewhere with behavioral disturbance (6) Failure to thrive in adult Conclusion/Plan: Likely as a result of patient's UTI and combined effect of drug-induced side effects. Would have dietitian to follow and screen for malnutrition, once patient is more lucid and alert may optimize oral nutrition. Patient may need appetite stimulation with Remeron plus or minus Megace. (7) Anorexia Conclusion/Plan: Likely secondary to UTI. Optimize medical and nutritional management. (8) Chronic idiopathic thrombocytopenia Conclusion/Plan: Patient will be placed on heparin and will need to follow serial platelet trending. Prior platelet levels have been low in the past. Patient denies or any mention of bleeding per family (9) Abnormal EKG Conclusion/Plan: There is a prolongation QT likely as a result of patient receiving Haldol as well as Zoloft. In addition there is ST-T wave abnormalities with repolarization seen V1 through V6. Would correct underlying electrolyte disturbances of hyp okalemia. Troponin was at 0.05. (10) Nephrolithiasis Conclusion/Plan: Patient presenting with gross hematuria along with concomitant UTI present on admission. Retroperitoneal ultrasound shows somewhat small echogenic kidneys which could represent chronic medical renal disease. There may be small nonobstructive renal stones. No amie hydronephrosis was seen. Ureteral jets were not seen in the bladder. There is some bladder debris in the urinary bladd er and possible small bladder stones. We will continue with empiric IV antibiotics to cover for patient's UTI along with continued aggressive IV fluid resuscitation to perfuse kidneys. May be of benefit to strain urine and sent for stone analysis in the context of possible future ureteral stone formation with obstruction to UVJ. (11) Advanced care planning/counseling discussion Conclusion/Plan: Patient's family mentions patient wishes of a full code. Under the current circumstances of patient's deteriorating Alzheimer's dementia with now associated UTI and multifactorial encephalopathy plan of care was discussed in detail along with symptomatic support of medical conditions and trajectory of illness. Palliative care consultation will be requested. - Lab Results Fish Bones: 06/24/18 23:55 06/24/18 23:55 - Diagnostic Imaging Results Diagnostic Imaging Results: positive: Final report reviewed - EKG Results EKG Interpreted Independently: Yes Core Measures - Anticipated LOS I expect patient to be DC'd or transferred within 96 hours.: Yes - Issues Hospital Issues and Management Plan: Patient to be treated with aggressive IV fluid resuscitation and electrolyte repletion empiric IV antibiotics nutritional assessment and optimizing medical and nutritional management. Palliative care consultation needed - DVT/VTE - Prophylaxis VTE/DVT Device ordered at admit?: Yes VTE/DVT Prophylaxis med ordered at admit?: Yes - Stroke - Rehab Assessment Rehab services assessment to be ordered?: No Not Ordered - Medical Reason: Not indicated - AMI - Statin at Admit Aspirin Prescribed on Admit: Yes
[2018-06-25] MEDS ORDERED: NS W/40 MEQ KCL 1,000 ML IV SCH ×3 (02:00→06:48)
[2018-06-25] MEDS: POTASSIUM CHLOR 10 MEQ/100 ML 10 MEQ/100 ML BAG IV SCH ×3 (02:37→04:53)
[2018-06-25] MEDS: FAMOTIDINE 20 MG/2 ML VIAL IVP SCH ×2 (02:37→21:17)
[2018-06-25] MEDS: SODIUM CHLORIDE FLUSH 0.9% 10 ML SYRINGE IVP PRN ×2 (02:39→02:40)
[2018-06-25] MEDS ORDERED: MIN OIL/DIMETHICON/COCONUT OIL 92 GM TUBE TOP PRN (02:56)
--- NOTE | 2018-06-25 05:12 | Ultrasound Report ---
Reason: Gross hematuria Procedure Date: 06/25/2018 Accession Number: [id number] / [id number] Procedure: US - Retroperitoneal CPT Code: FULL RESULT: EXAM: RENAL ULTRASOUND EXAM DATE: 06/25/2018 04:15 AM. CLINICAL HISTORY: Gross hematuria. COMPARISON: None. TECHNIQUE: Real-time scanning was performed with static images obtained. FINDINGS: Right Kidney: 8.1 x 4.8 x 3.6 cm. Mildly echogenic. Small cysts measuring up to 9 mm. No amie hydronephrosis. There could be small nonobstructing stones. Left Kidney: 8.0 x 4.6 x 3.5 cm. Small cysts measuring up to 9 mm. Mildly echogenic. No amie hydronephrosis. There could be small nonobstructing stones. Bladder: Bilateral jets not seen. The bladder volume was 155 cc. Blood or debris in the urinary bladder. Possible small bladder stones. Other: None. IMPRESSION: 1. Somewhat small echogenic kidneys which could represent chronic medical renal disease. 2. There may be small nonobstructing renal stones. No amie hydronephrosis seen. 3. Ureteral jets were not seen in the bladder. 4. There is some blood or debris in the urinary bladder and possible small bladder stones. [facility]
[2018-06-25] MEDS: HEPARIN 5,000 UNIT/ML VIAL SUBQ SCH ×2 (06:22→13:31)
[2018-06-25 07:26] LABS: BASOPHILS % (AUTO) 0.1 %; HGB - HEMOGLOBIN 12.4 g/dL (12.0-16.0); LYMPHOCYTES # (AUTO) 0.8 10^3/uL (1.5-3.5); LYMPHOCYTES % (AUTO) 9.1 %; MEAN CORPUSCULAR HEMOGLOBIN 33.7 pg (27.0-31.0); MEAN CORPUSCULAR HGB CONC 33.9 g/dL (32.0-36.0); MEAN CORPUSCULAR VOLUME 99.3 fL (81.0-99.0); MEAN PLATELET VOLUME 9.1 fL (7.9-10.8); MONOCYTES # (AUTO) 0.5 10^3/uL (0.0-1.0); MONOCYTES % (AUTO) 6.4 %; NEUTROPHILS # (AUTO) 7.2 10^3/uL (1.5-6.6); NEUTROPHILS % (AUTO) 84.4 %; PLT - PLATELET COUNT 96 10^3/uL (130-450); RED BLOOD COUNT 3.69 10^6/uL (4.20-5.40); RED CELL DISTRIBUTION WIDTH 17.7 % (12.0-15.0); WHITE BLOOD COUNT 8.6 x10^3/uL (4.8-10.8)
[2018-06-25 07:28] LABS: ALBUMIN 2.1 g/dL (3.2-5.5); CALCIUM 7.8 mg/dL (8.5-10.3); CREATININE 0.4 mg/dL (0.4-1.0); PHOSPHORUS 1.7 mg/dL (2.5-4.6)
[2018-06-25 07:46] LABS: VBG PH 7.311 (7.31-7.41)
[2018-06-25 08:01] LABS: PLATELET ESTIMATE, MANUAL NORMAL (130-450,000) (NORMAL); PLATELET MORPHOLOGY NORMAL APPEARANCE (NORMAL); RBC MORPHOLOGY (MULTIPLE) 1+ ANISOCYTOSIS (NORMAL)
[2018-06-25] MEDS ORDERED: SODIUM CHLORIDE 0.9% 500 ML IV ONE ×2 (08:16→16:27)
[2018-06-25] MEDS ORDERED: NEUTRA-PHOS 250 MG TABLET PO SCH (09:00)
[2018-06-25] MEDS: POLYETHYLENE GLYCOL 3350 17 GM PACKET PO SCH (09:08)
[2018-06-25] MEDS: POTASSIUM CHLORIDE INJ 40 MEQ in DEXTROSE 5%-0.45% NACL 980 ML IV SCH ×2 (09:08→17:28)
[2018-06-25] MEDS: SODIUM CHLORIDE FLUSH 0.9% 10 ML SYRINGE IVP SCH ×2 (09:08→16:39)
[2018-06-25] MEDS: ASPIRIN 300 MG SUPP PR SCH (09:15)
[2018-06-25] MEDS: cefTRIAXone 2 GM in SODIUM CHLORIDE 0.9% MINIBAG 100 ML IV SCH (09:15)
[2018-06-25 09:22] LABS: HB2 TOTAL 12.9 g/dL; HEMOGLOBIN A1C 0.45 g/dL; HEMOGLOBIN A1C % 5.3 % (4.6-6.2)
--- NOTE | 2018-06-25 14:31 | CONSULTATION NOTE ---
Palliative Care Consultation - Referral Referring Provider: Pelon Sandoval MD Time of Visit: [id number] Referral setting: [facility] [place] Referral Reason: Dementia with behavioral disturbances/Goals of Care - Information Sources Records reviewed: RN notes reviewed, Previous records reviewed History/Review of Systems obtained from: Family (met with lilyther YEIMI/DANNY and her Phil) Exam limitations: Clinical condition (patient somnulent and nonresponsive) - History of Present Illness Brief History of Present Illness: This is a 77-year-old woman who has Alzheimer's, though in description may be Lewy body dementia, that has continued to progress, ever since anesthesia last year for cholecystectomy, progressed rapidly over the last year, and she presents is acutely ill over the last couple weeks. They originally noticed forgetfulness around 2005, she had a cataract surgery about 3 years ago, did see some difference with the anesthesia with more forgetfulness, more behavioral issues, and then developed delusions and hallucinations, nightmares and screaming and was very distressed. At this point in time they started Zoloft for her anxiety and depression, she had gotten quite mean. Baseline is always been very positive, good sense of humor, easily engaged and friendly so this is quite distressful to the family. They had tried multiple different medications and finally settled on Haldol which did mitigate and resolved most of the neuropsychiatric behaviors. She was at baseline on Haldol 0.5 mg twice a day. She has been on her current medications Zoloft and Haldol for long period of time, they had held these in concerned that they may be adding to her somnolence, suspect these are not involved in her acute deteriorate duration. She has over time been sleeping more, she is able to carry on conversation, does recognize her family though does not always able to recall her name. Her functional status is declined in the context that she is needing more assistance with transfers, she was independent in wheelchair, as she has been wheelchair- bound all of her life secondary to polio. They now are providing bed baths. She has been incontinent for about 6 months, though she has had less intake, she has not had significant weight loss. She has had some modification in her diet, she has macular degeneration have needed to help with her feeding. Most recently though over the last 2 weeks she has had difficulty swallowing, noted choking, increased somnolence, had been more acutely ill last several days, had been in contact with Anthony Corbett PA-C, with appointment to [facility] [place], and presents acutely with dehydration, decub, UTI, acute metabolic encephalopathy, and hypokalemia and admitted to [facility] last night. Patient on exam, is nonresponsive, feet and hands are quite cool to touch, she does have some pitting edema. She is resting peacefully, breathing is even and unlabored, no adventitious breath sounds anteriorly. Palliative care meeting with daughter yaritza and son-in-law Phil to explore and evaluate goals of care. 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 and left arm weakness, left lung scarring.) Endocrine/Autoimmune: reports: Type 2 diabetes GI: reports: Pancreatitis, Cholelithiasis : reports: Incontinence (for about a 6 months;) HEENT: reports: Macular degeneration, Chronic hearing loss Musculoskeletal: reports: Paraplegia Derm: reports: Other (decub on buttocks about one week) MRSA Hx?: No - Past Surgical History General: reports: Cholecystectomy, 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 She has lived with both her daughters for most of her life, or they have lived with her. Yeimi and her moved up to [facility] about 3 years ago, her oldest daughter and son were in the [place]. They have enjoyed living here in [facility]. Yeimi and Phil have their 2 daughters living with them, all her hoping to take care of patient. They have a room set up, unfortunately only a regular bed. Patient was on Medicaid, ANIMAL RIDES MANAGER following up as it looks like it has . They have not accessed [place], they have chosen to take care of her and feel like this is still relevant and the plan. Family History - Family History Family History: Mother: , Father: , Sister: , CVA/TIA, Other family: Alive and Well (daughter at 37 of breast cancer) Medications/Allergies - Medications Active Medication List: Active Medications Aspirin () 300 mg DE DAILY [facility] Last Admin: 06/25/18 09:15 Dose: 300 mg Famotidine (Pepcid) 20 mg IVP HS [facility] Last Admin: 06/25/18 02:37 Dose: 20 mg Heparin Sodium (Porcine) () 5,000 unit SUBQ TID [facility] Last Admin: 06/25/18 13:31 Dose: 5,000 unit Ceftriaxone Sodium 2 gm/ (Sodium Chloride) 100 mls @ 200 mls/hr IV DAILY [facility] Last Infusion: 06/25/18 10:09 Dose: Infused Acetaminophen (Ofirmev) 100 mls @ 400 mls/hr IV Q6HR PRN PRN Reason: PAIN Potassium Chloride 40 meq/ (Dextrose/Sodium Chloride) 1,000 mls @ 125 mls/hr IV .Q8H [facility] Stop: 06/25/18 16:59 Last Admin: 06/25/18 09:08 Dose: 125 mls/hr Mineral Oil (Cavilon) 1 applic TOP PRN PRN PRN Reason: Skin Care Polyethylene Glycol (Miralax) 17 gm PO DAILY [facility] Last Admin: 06/25/18 09:08 Dose: Not Given Prochlorperazine Edisylate (Compazine Inj) 10 mg IVP Q6HR PRN PRN Reason: Nausea / Vomiting Sodium Chloride (Normal Saline Flush 0.9%) 10 ml IVP PRN PRN PRN Reason: NEEDED PER PROVIDER ORDERS Last Admin: 06/25/18 02:40 Dose: 10 ml Sodium Chloride (Normal Saline Flush 0.9%) 10 ml IVP 0100,0900,1700 [facility] Last Admin: 06/25/18 09:08 Dose: Not Given Haloperidol [Haldol] 0.5 mg PO BID 06/24/18 Metoprolol Tartrate 25 mg PO BID 06/24/18 Sertraline [Zoloft] 25 mg PO DAILY 06/24/18 - Allergies Allergies/Adverse Reactions: Allergies Allergy/AdvReac Type Severity Reaction Status Date / Time lorazepam AdvReac Anxiety Verified 06/24/18 23:18 Review of Systems - Constitutional Constitutional: reports: Weakness, Poor appetite - Eyes Eyes: reports: Vision loss - Ears, Nose & Throat Ears, Nose & Throat: reports: Hearing loss, Dry mouth - Gastrointestinal Gastrointestinal: reports: Poor appetite - Genitourinary Genitourinary: reports: Incontinence - Musculoskeletal Musculoskeletal: reports: Back pain, Muscle weakness, Transfer issues - Integumentary Integumentary: reports: Dryness, Other (new decub this week) - Neurological Neurological: reports: General weakness, Memory problems - Psychiatric Psychiatric: reports: Anxiety - All Other Systems All Other Systems: reports: Other (limited ROS patient non responsive) Physical Exam - Vital Signs Vital Signs: Vital Signs x48h Temp Pulse Resp BP Pulse Ox 06/25/18 12:09 36.4 C L 80 16 91/51 L 100 06/25/18 07:31 36.2 C L 76 16 91/49 L 100 - Physical Exam General Appearance: positive: Lethargic Eyes Bilateral: positive: Other (eyes closed) ENT: positive: Dry mucous membranes Neck: positive: No JVD, Trachea midline Cardiovascular: positive: Regular rate & rhythm Respiratory: positive: No respiratory distress Abdomen: positive: Soft, Nml bowel sounds Skin: positive: Pallor, Dryness, Pressure wound Extremities: positive: Pedal edema Neurologic/Psychiatric: positive: Other (nonresponsive) Palliative Care - POLST Patient has POLST: No POLST Status: Full Code Pain: No pain (has osteoarthritis in) - Palliative Care Discussion: Daughter is struggling related to mother's decline. They have been very close. Mother had previously when she participated in doing together advanced directives had in 2018, said she wanted to be a full code and a do resuscitate. Daughter does recognize given her current quality of life, decline, and risk for significant harm if CPR were performed, she is willing to have a conversation regarding weighing benefits and burdens of looking at DNAR/Allowing Natural . Long discussion regarding DO NOT RESUSCITATE does not mean do not provide care. Hoping for the best, will would want to see her mother recover from this infection, but acknowledged patient is quite frail, has been on the decline, and may not recover to previous level of function previous to last week. 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 Time was spent counseling regarding the trajectory of Alzheimer's/dementia, functional decline as an indicator prognosis, as well as recurrent infections. Her mother was quite feisty, particularly as a polio survivor. There were many articles and she had much noted variety around her living with her paralysis. She and that time, had 2 children, which was "unheard of". And she was a very good mom as well as very fun and loving. [place] and are very close as a family. Introduced the POLST, with a two tear to approach of resuscitation decision/and goals of care decision. Daughter's main concern is that her mother does not suffer, that she is kept comfortable. She does understand her mother does not like hospitalizations, she would not want a lot of work-up, or interventions. In the context of this, recommended DNA R given that would be consistent with her goals for her mother. That could continue to weigh benefits and burdens as decisions came along with the goal for comfort and decreased suffering. Though she is feeling "selfish", she understands she is to speak for what her mother would want her not want in this situation. Provided her "hard choices for loving people". Information regarding the unlikelihood of if she were to have an event that required CPR, of her survival and or recovery without more deficits. She would like to talk to her family further about this. We did discuss in the context of the DNA R decision, that she may be asked to make this sooner than later as her mother is doing quite poorly. That we could do the POLST on Thursday, after we see where she is. If it were to be the worst case scenario, if she continued to decline our not recover, she would like to have h er at home with her family for end of life. She did take care of her sister on hospice, and is aware of hospice support. Results - Lab Results Lab results reviewed: Yes Fish Bones: 06/25/18 07:00 06/25/18 07:00 Lab and Imaging Results: Lab Results x24hrs 06/25/18 06/25/18 06/25/18 Range/Units Unknown 07:30 07:00 WBC (4.8-10.8) x10^3/uL RBC (4.20-5.40) 10^6/uL Hgb (12.0-16.0) g/dL Hct (37.0-47.0) % MCV (81.0-99.0) fL MCH (27.0-31.0) pg MCHC (32.0-36.0) g/dL RDW (12.0-15.0) % Plt Count (130-450) 10^3/uL MPV (7.9-10.8) fL Neut # (Auto) (1.5-6.6) 10^3/uL Lymph # (Auto) (1.5-3.5) 10^3/uL [place] # (Auto) (0.0-1.0) 10^3/uL Eos # (Auto) (0.0-0.7) 10^3/uL Baso # (Auto) (0.0-0.1) 10^3/uL Absolute Nucleated RBC x10^3/uL Nucleated RBC % /100WBC Manual Slide Review Platelet Estimate (NORMAL) Platelet Morphology (NORMAL) RBC Morph Micro Appear (NORMAL) VBG pH 7.311 (7.31-7.41) Ionized Calcium 1.01 L (1.15-1.33) mmol/L Sodium (135-145) mmol/L Potassium (3.5-5.0) mmol/L Chloride (101-111) mmol/L Carbon Dioxide (21-32) mmol/L Anion Gap (6-13) BUN (6-20) mg/dL Creatinine (0.4-1.0) mg/dL Estimated GFR (MDRD) (>89) Glucose (70-100) mg/dL POC Whole Bld Glucose (70 - 100) mg/dL Glycated Hemoglobin 5.3 (4.6-6.2) % Estim Average Glucose 105 H (70-100) Lactic Acid (0.5-2.2) mmol/L Calcium (8.5-10.3) mg/dL Phosphorus (2.5-4.6) mg/dL Magnesium (1.7-2.8) mg/dL Total Bilirubin (0.2-1.0) mg/dL AST (10-42) IU/L ALT (10-60) IU/L Alkaline Phosphatase (42-121) IU/L Troponin I 0.05 (<0.49) ng/mL Total Protein (6.7-8.2) g/dL Albumin (3.2-5.5) g/dL Globulin (2.1-4.2) g/dL Albumin/Globulin Ratio (1.0-2.2) Lipase (22-51) U/L TSH (0.34-5.60) uIU/mL Urine Color Urine Clarity (CLEAR) Urine pH (5.0-7.5) PH Ur Specific [place] (1.002-1.030) Urine Protein (NEGATIVE) mg/dL Urine Glucose (UA) (NEGATIVE) mg/dL Urine Ketones (NEGATIVE) mg/dL Urine Occult Blood (NEGATIVE) Urine Nitrite (NEGATIVE) Urine Bilirubin (NEGATIVE) Urine Urobilinogen (NORMAL) E.U./dL Ur Leukocyte Esterase (NEGATIVE) Urine RBC (0-5) /HPF Urine WBC (0-5) /HPF Ur Squamous Epith Cells (<= Few) Urine Bacteria (None Seen) /HPF Ur Microscopic Review Urine Culture Comments 06/25/18 06/25/18 06/25/18 Range/Units 07:00 07:00 07:00 WBC 8.6 (4.8-10.8) x10^3/uL RBC 3.69 L (4.20-5.40) 10^6/uL Hgb 12.4 (12.0-16.0) g/dL Hct 36.7 L (37.0-47.0) % MCV 99.3 H (81.0-99.0) fL MCH 33.7 H (27.0-31.0) pg MCHC 33.9 (32.0-36.0) g/dL RDW 17.7 H (12.0-15.0) % Plt Count 96 L (130-450) 10^3/uL MPV 9.1 (7.9-10.8) fL Neut # (Auto) 7.2 H (1.5-6.6) 10^3/uL Lymph # (Auto) 0.8 L (1.5-3.5) 10^3/uL [place] # (Auto) 0.5 (0.0-1.0) 10^3/uL Eos # (Auto) 0.0 (0.0-0.7) 10^3/uL Baso # (Auto) 0.0 (0.0-0.1) 10^3/uL Absolute Nucleated RBC 0.01 x10^3/uL Nucleated RBC % 0.1 /100WBC Manual Slide Review Indicated Platelet Estimate NORMAL (130-450,000) (NORMAL) Platelet Morphology NORMAL APPEARANCE (NORMAL) RBC Morph Micro Appear 1+ ANISOCYTOSIS (NORMAL) VBG pH (7.31-7.41) Ionized Calcium (1.15-1.33) mmol/L Sodium 141 (135-145) mmol/L Potassium 3.0 L (3.5-5.0) mmol/L Chloride 97 L (101-111) mmol/L Carbon Dioxide 29 (21-32) mmol/L Anion Gap 15.0 H (6-13) BUN 19 (6-20) mg/dL Creatinine 0.4 (0.4-1.0) mg/dL Estimated GFR (MDRD) 154 (>89) Glucose 93 (70-100) mg/dL POC Whole Bld Glucose (70 - 100) mg/dL Glycated Hemoglobin (4.6-6.2) % Estim Average Glucose (70-100) Lactic Acid (0.5-2.2) mmol/L Calcium 7.8 L (8.5-10.3) mg/dL Phosphorus 1.7 L (2.5-4.6) mg/dL Magnesium (1.7-2.8) mg/dL Total Bilirubin (0.2-1.0) mg/dL AST (10-42) IU/L ALT (10-60) IU/L Alkaline Phosphatase (42-121) IU/L Troponin I (<0.49) ng/mL Total Protein (6.7-8.2) g/dL Albumin 2.1 L (3.2-5.5) g/dL Globulin (2.1-4.2) g/dL Albumin/Globulin Ratio (1.0-2.2) Lipase (22-51) U/L TSH 0.39 (0.34-5.60) uIU/mL Urine Color Urine Clarity (CLEAR) Urine pH (5.0-7.5) PH Ur Specific [place] (1.002-1.030) Urine Protein (NEGATIVE) mg/dL Urine Glucose (UA) (NEGATIVE) mg/dL Urine Ketones (NEGATIVE) mg/dL Urine Occult Blood (NEGATIVE) Urine Nitrite (NEGATIVE) Urine Bilirubin (NEGATIVE) Urine Urobilinogen (NORMAL) E.U./dL Ur Leukocyte Esterase (NEGATIVE) Urine RBC (0-5) /HPF Urine WBC (0-5) /HPF Ur Squamous Epith Cells (<= Few) Urine Bacteria (None Seen) /HPF Ur Microscopic Review Urine Culture Comments 06/25/18 06/25/18 06/25/18 Range/Units 06:39 00:30 00:10 WBC (4.8-10.8) x10^3/uL RBC (4.20-5.40) 10^6/uL Hgb (12.0-16.0) g/dL Hct (37.0-47.0) % MCV (81.0-99.0) fL MCH (27.0-31.0) pg MCHC (32.0-36.0) g/dL RDW (12.0-15.0) % Plt Count (130-450) 10^3/uL MPV (7.9-10.8) fL Neut # (Auto) (1.5-6.6) 10^3/uL Lymph # (Auto) (1.5-3.5) 10^3/uL [place] # (Auto) (0.0-1.0) 10^3/uL Eos # (Auto) (0.0-0.7) 10^3/uL Baso # (Auto) (0.0-0.1) 10^3/uL Absolute Nucleated RBC x10^3/uL Nucleated RBC % /100WBC Manual Slide Review Platelet Estimate (NORMAL) Platelet Morphology (NORMAL) RBC Morph Micro Appear (NORMAL) VBG pH (7.31-7.41) Ionized Calcium (1.15-1.33) mmol/L Sodium (135-145) mmol/L Potassium (3.5-5.0) mmol/L Chloride (101-111) mmol/L Carbon Dioxide (21-32) mmol/L Anion Gap (6-13) BUN (6-20) mg/dL Creatinine (0.4-1.0) mg/dL Estimated GFR (MDRD) (>89) Glucose (70-100) mg/dL POC Whole Bld Glucose 85 102 H (70 - 100) mg/dL Glycated Hemoglobin (4.6-6.2) % Estim Average Glucose (70-100) Lactic Acid (0.5-2.2) mmol/L Calcium (8.5-10.3) mg/dL Phosphorus (2.5-4.6) mg/dL Magnesium (1.7-2.8) mg/dL Total Bilirubin (0.2-1.0) mg/dL AST (10-42) IU/L ALT (10-60) IU/L Alkaline Phosphatase (42-121) IU/L Troponin I (<0.49) ng/mL Total Protein (6.7-8.2) g/dL Albumin (3.2-5.5) g/dL Globulin (2.1-4.2) g/dL Albumin/Globulin Ratio (1.0-2.2) Lipase (22-51) U/L TSH (0.34-5.60) uIU/mL Urine Color YELLOW Urine Clarity HAZY (CLEAR) Urine pH 6.0 (5.0-7.5) PH Ur Specific [place] 1.015 (1.002-1.030) Urine Protein 30 H (NEGATIVE) mg/dL Urine Glucose (UA) NEGATIVE (NEGATIVE) mg/dL Urine Ketones 15 H (NEGATIVE) mg/dL Urine Occult Blood LARGE H (NEGATIVE) Urine Nitrite POSITIVE H (NEGATIVE) Urine Bilirubin NEGATIVE (NEGATIVE) Urine Urobilinogen 1 (NORMAL) (NORMAL) E.U./dL Ur Leukocyte Esterase SMALL H (NEGATIVE) Urine RBC TNTC H (0-5) /HPF Urine WBC 11-25 H (0-5) /HPF Ur Squamous Epith Cells FEW Squamous (<= Few) Urine Bacteria Many H (None Seen) /HPF Ur Microscopic Review INDICATED Urine Culture Comments INDICATED 06/24/18 06/24/18 06/24/18 Range/Units 23:55 23:55 23:55 WBC (4.8-10.8) x10^3/uL RBC (4.20-5.40) 10^6/uL Hgb (12.0-16.0) g/dL Hct (37.0-47.0) % MCV (81.0-99.0) fL MCH (27.0-31.0) pg MCHC (32.0-36.0) g/dL RDW (12.0-15.0) % Plt Count (130-450) 10^3/uL MPV (7.9-10.8) fL Neut # (Auto) (1.5-6.6) 10^3/uL Lymph # (Auto) (1.5-3.5) 10^3/uL [place] # (Auto) (0.0-1.0) 10^3/uL Eos # (Auto) (0.0-0.7) 10^3/uL Baso # (Auto) (0.0-0.1) 10^3/uL Absolute Nucleated RBC x10^3/uL Nucleated RBC % /100WBC Manual Slide Review Platelet Estimate (NORMAL) Platelet Morphology (NORMAL) RBC Morph Micro Appear (NORMAL) VBG pH (7.31-7.41) Ionized Calcium (1.15-1.33) mmol/L Sodium 139 (135-145) mmol/L Potassium 1.9 L* (3.5-5.0) mmol/L Chloride 86 L (101-111) mmol/L Carbon Dioxide 33 H (21-32) mmol/L Anion Gap 20.0 H (6-13) BUN 20 (6-20) mg/dL Creatinine 0.5 (0.4-1.0) mg/dL Estimated GFR (MDRD) 119 (>89) Glucose 105 H (70-100) mg/dL POC Whole Bld Glucose (70 - 100) mg/dL Glycated Hemoglobin (4.6-6.2) % Estim Average Glucose (70-100) Lactic Acid 1.9 (0.5-2.2) mmol/L Calcium 8.4 L (8.5-10.3) mg/dL Phosphorus (2.5-4.6) mg/dL Magnesium 2.0 (1.7-2.8) mg/dL Total Bilirubin 2.1 H (0.2-1.0) mg/dL AST 23 (10-42) IU/L ALT 13 (10-60) IU/L Alkaline Phosphatase 74 (42-121) IU/L Troponin I 0.05 (<0.49) ng/mL Total Protein 5.4 L (6.7-8.2) g/dL Albumin 2.3 L (3.2-5.5) g/dL Globulin 3.1 (2.1-4.2) g/dL Albumin/Globulin Ratio 0.7 L (1.0-2.2) Lipase 21 L (22-51) U/L TSH (0.34-5.60) uIU/mL Urine Color Urine Clarity (CLEAR) Urine pH (5.0-7.5) PH Ur Specific [place] (1.002-1.030) Urine Protein (NEGATIVE) mg/dL Urine Glucose (UA) (NEGATIVE) mg/dL Urine Ketones (NEGATIVE) mg/dL Urine Occult Blood (NEGATIVE) Urine Nitrite (NEGATIVE) Urine Bilirubin (NEGATIVE) Urine Urobilinogen (NORMAL) E.U./dL Ur Leukocyte Esterase (NEGATIVE) Urine RBC (0-5) /HPF Urine WBC (0-5) /HPF Ur Squamous Epith Cells (<= Few) Urine Bacteria (None Seen) /HPF Ur Microscopic Review Urine Culture Comments 06/24/18 Range/Units 23:55 WBC 7.1 (4.8-10.8) x10^3/uL RBC 4.01 L (4.20-5.40) 10^6/uL Hgb 13.6 (12.0-16.0) g/dL Hct 38.9 (37.0-47.0) % MCV 97.0 (81.0-99.0) fL MCH 33.9 H (27.0-31.0) pg MCHC 35.0 (32.0-36.0) g/dL RDW 17.6 H (12.0-15.0) % Plt Count 109 L (130-450) 10^3/uL MPV 8.6 (7.9-10.8) fL Neut # (Auto) 6.0 (1.5-6.6) 10^3/uL Lymph # (Auto) 0.5 L (1.5-3.5) 10^3/uL [place] # (Auto) 0.4 (0.0-1.0) 10^3/uL Eos # (Auto) 0.0 (0.0-0.7) 10^3/uL Baso # (Auto) 0.1 (0.0-0.1) 10^3/uL Absolute Nucleated RBC 0.01 x10^3/uL Nucleated RBC % 0.2 /100WBC Manual Slide Review Platelet Estimate (NORMAL) Platelet Morphology (NORMAL) RBC Morph Micro Appear (NORMAL) VBG pH (7.31-7.41) Ionized Calcium (1.15-1.33) mmol/L Sodium (135-145) mmol/L Potassium (3.5-5.0) mmol/L Chloride (101-111) mmol/L Carbon Dioxide (21-32) mmol/L Anion Gap (6-13) BUN (6-20) mg/dL Creatinine (0.4-1.0) mg/dL Estimated GFR (MDRD) (>89) Glucose (70-100) mg/dL POC Whole Bld Glucose (70 - 100) mg/dL Glycated Hemoglobin (4.6-6.2) % Estim Average Glucose (70-100) Lactic Acid (0.5-2.2) mmol/L Calcium (8.5-10.3) mg/dL Phosphorus (2.5-4.6) mg/dL Magnesium (1.7-2.8) mg/dL Total Bilirubin (0.2-1.0) mg/dL AST (10-42) IU/L ALT (10-60) IU/L Alkaline Phosphatase (42-121) IU/L Troponin I (<0.49) ng/mL Total Protein (6.7-8.2) g/dL Albumin (3.2-5.5) g/dL Globulin (2.1-4.2) g/dL Albumin/Globulin Ratio (1.0-2.2) Lipase (22-51) U/L TSH (0.34-5.60) uIU/mL Urine Color Urine Clarity (CLEAR) Urine pH (5.0-7.5) PH Ur Specific [place] (1.002-1.030) Urine Protein (NEGATIVE) mg/dL Urine Glucose (UA) (NEGATIVE) mg/dL Urine Ketones (NEGATIVE) mg/dL Urine Occult Blood (NEGATIVE) Urine Nitrite (NEGATIVE) Urine Bilirubin (NEGATIVE) Urine Urobilinogen (NORMAL) E.U./dL Ur Leukocyte Esterase (NEGATIVE) Urine RBC (0-5) /HPF Urine WBC (0-5) /HPF Ur Squamous Epith Cells (<= Few) Urine Bacteria (None Seen) /HPF Ur Microscopic Review Urine Culture Comments Impression and Recommendations - Palliative Care Impression: This is a 77-year-old woman who presents acutely with metabolic encephalopathy, history of Alzheimer's with ongoing decline, UTI, dehydration, doing poorly as she is currently nonresponsive. Palliative care meeting with family, to help de fine goals of care, establish rapport, and follow through trajectory. Recommendations/Counseling Done: 1. Dementia with behavioral disturbances. Patient does present with failure to thrive, encephalopathy, UTI, and history of functional decline. She has had an acute foreign exchange services manager the last several days, necessitating hospitalization. They do recognize she is quite fragile, are aware of the trajectory of Alzheimer's, but patient and original description presents as a FAST 6C. 2. Advanced care planning. Family conference related to goals of care, Counseling provided regarding POLST, DNA R/allow natural choices, as well as anticipatory guidance regarding palliative care versus hospice care. They are quite committed to still keeping her at home, they are hoping for patient's recovery and improvement, but aware she is quite fragile and may decline. They are very much could use a hospital bed, to ease her care. We will continue to monitor her status, she may benefit from support of home health versus hospice, depending on the next few days. Psychosocial support given, counseling provided for normal grief and loss at decision points in the journey for left ones living with Alzheimer's/dementia's. Follow-up with hospitalist, regarding daughter most likely leaning towards DNA R, she is going to speak with her family and let the hospitalist know. We will continue to evaluate if patient improves or declines, and assist with transition planning on Thursday if not discharged before then. Time Spent: 75 minutes with greater than 50% of this done in counseling regarding goals of care, trajectory of disease, advanced care planning/POLST. Follow-up with hospitalist in coordination of care. left message for ANIMAL RIDES MANAGER to provide number for [email or web address].
--- NOTE | 2018-06-25 14:38 | PROVIDER PROGRESS NOTE ---
Subjective - Subjective Pt reports feeling: No change Subjective: pt is still lethargic, she still did not answer my questions. Per her daughter, she feel pt is better, and she believed her mother has some interaction with her. DPOA, pt's daughter is not willing to change pt's code status for pt yet now. SP and palliative care provider saw pt. pt was the similar lethargic condition with them, per they reported. Current Medications - Current Medications Current Medications: Active Medications Aspirin () 300 mg NC DAILY [facility] Last Admin: 06/25/18 09:15 Dose: 300 mg Famotidine (Pepcid) 20 mg IVP HS [facility] Last Admin: 06/25/18 02:37 Dose: 20 mg Heparin Sodium (Porcine) () 5,000 unit SUBQ TID [facility] Last Admin: 06/25/18 13:31 Dose: 5,000 unit Ceftriaxone Sodium 2 gm/ (Sodium Chloride) 100 mls @ 200 mls/hr IV DAILY [facility] Last Infusion: 06/25/18 10:09 Dose: Infused Acetaminophen (Ofirmev) 100 mls @ 400 mls/hr IV Q6HR PRN PRN Reason: PAIN Potassium Chloride 40 meq/ (Dextrose/Sodium Chloride) 1,000 mls @ 125 mls/hr IV .Q8H [facility] Stop: 06/25/18 16:59 Last Admin: 06/25/18 09:08 Dose: 125 mls/hr Mineral Oil (Cavilon) 1 applic TOP PRN PRN PRN Reason: Skin Care Polyethylene Glycol (Miralax) 17 gm PO DAILY [facility] Last Admin: 06/25/18 09:08 Dose: Not Given Prochlorperazine Edisylate (Compazine Inj) 10 mg IVP Q6HR PRN PRN Reason: Nausea / Vomiting Sodium Chloride (Normal Saline Flush 0.9%) 10 ml IVP PRN PRN PRN Reason: NEEDED PER PROVIDER ORDERS Last Admin: 06/25/18 02:40 Dose: 10 ml Sodium Chloride (Normal Saline Flush 0.9%) 10 ml IVP 0100,0900,1700 [facility] Last Admin: 06/25/18 09:08 Dose: Not Given Haloperidol [Haldol] 0.5 mg PO BID 06/24/18 Metoprolol Tartrate 25 mg PO BID 06/24/18 Sertraline [Zoloft] 25 mg PO DAILY 06/24/18 Objective - Vital Signs/Intake & Output Reviewed Vital Signs: Yes Vital Signs: Vital Signs x48h Temp Pulse Resp BP Pulse Ox 06/25/18 12:09 36.4 C L 80 16 91/51 L 100 06/25/18 07:31 36.2 C L 76 16 91/49 L 100 Intake & Output: Intake & Output 06/22/18 06/23/18 06/24/18 06/25/18 23:59 23:59 23:59 23:59 Intake Total 3020.000 Output Total 100 Balance 2920.000 - Objective General Appearance: positive: No acute distress, Alert. negative: Lethargic Eyes Bilateral: positive: Normal inspection, PERRL, No lid inflammation, Conjunctivae nml ENT: positive: ENT inspection nml, Pharynx nml, No signs of dehydration. negative: Purulent nasal drainage, Pharyngeal erythema, Oral lesions Neck: positive: Nml inspection, Thyroid nml, No JVD, Trachea midline. negative: Thyromegaly, Lymphadenopathy (R), Lymphadenopathy (L), Stiff neck, Swelling/bruising, Tracheal deviation Respiratory: positive: Chest non-tender, No respiratory distress, Breath sounds nml. negative: Wheezes, Rales, Rhonchi Cardiovascular: positive: Regular rate & rhythm, No murmur, No gallop. negative: Irregularly irregular, Extrasystoles, Tachycardia, Bradycardia, JVD present, Systolic murmur, Diastolic murmur Peripheral Pulses: 2+ Radial (R), 2+ Radial (L), 2+ Dorsalis pedis (R), 2+ Dorsalis pedis (L) Abdomen: positive: Non-tender, No organomegaly, Nml bowel sounds, No distention. negative: Tenderness, Guarding, Rebound Back: positive: Nml inspection. negative: CVA tenderness (R), CVA tenderness (L) Skin: positive: Color nml, No rash, Warm, Dry. negative: Cyanosis, Diaphoresis, Pallor Extremities: positive: Non-tender, Nml appearance. negative: Calf tenderness, Joint swelling, Marli's sign/cords Neurologic/Psychiatric: negative: Facial droop - Lab Results Fish Bones: 06/25/18 07:00 06/25/18 07:00 Other Labs: Lab Results x24hrs 06/25/18 06/25/18 06/25/18 Range/Units Unknown 07:30 07:00 WBC (4.8-10.8) x10^3/uL RBC (4.20-5.40) 10^6/uL Hgb (12.0-16.0) g/dL Hct (37.0-47.0) % MCV (81.0-99.0) fL MCH (27.0-31.0) pg MCHC (32.0-36.0) g/dL RDW (12.0-15.0) % Plt Count (130-450) 10^3/uL MPV (7.9-10.8) fL Neut # (Auto) (1.5-6.6) 10^3/uL Lymph # (Auto) (1.5-3.5) 10^3/uL [place] # (Auto) (0.0-1.0) 10^3/uL Eos # (Auto) (0.0-0.7) 10^3/uL Baso # (Auto) (0.0-0.1) 10^3/uL Absolute Nucleated RBC x10^3/uL Nucleated RBC % /100WBC Manual Slide Review Platelet Estimate (NORMAL) Platelet Morphology (NORMAL) RBC Morph Micro Appear (NORMAL) VBG pH 7.311 (7.31-7.41) Ionized Calcium 1.01 L (1.15-1.33) mmol/L Sodium (135-145) mmol/L Potassium (3.5-5.0) mmol/L Chloride (101-111) mmol/L Carbon Dioxide (21-32) mmol/L Anion Gap (6-13) BUN (6-20) mg/dL Creatinine (0.4-1.0) mg/dL Estimated GFR (MDRD) (>89) Glucose (70-100) mg/dL POC Whole Bld Glucose (70 - 100) mg/dL Glycated Hemoglobin 5.3 (4.6-6.2) % Estim Average Glucose 105 H (70-100) Lactic Acid (0.5-2.2) mmol/L Calcium (8.5-10.3) mg/dL Phosphorus (2.5-4.6) mg/dL Magnesium (1.7-2.8) mg/dL Total Bilirubin (0.2-1.0) mg/dL AST (10-42) IU/L ALT (10-60) IU/L Alkaline Phosphatase (42-121) IU/L Troponin I 0.05 (<0.49) ng/mL Total Protein (6.7-8.2) g/dL Albumin (3.2-5.5) g/dL Globulin (2.1-4.2) g/dL Albumin/Globulin Ratio (1.0-2.2) Lipase (22-51) U/L TSH (0.34-5.60) uIU/mL Urine Color Urine Clarity (CLEAR) Urine pH (5.0-7.5) PH Ur Specific [place] (1.002-1.030) Urine Protein (NEGATIVE) mg/dL Urine Glucose (UA) (NEGATIVE) mg/dL Urine Ketones (NEGATIVE) mg/dL Urine Occult Blood (NEGATIVE) Urine Nitrite (NEGATIVE) Urine Bilirubin (NEGATIVE) Urine Urobilinogen (NORMAL) E.U./dL Ur Leukocyte Esterase (NEGATIVE) Urine RBC (0-5) /HPF Urine WBC (0-5) /HPF Ur Squamous Epith Cells (<= Few) Urine Bacteria (None Seen) /HPF Ur Microscopic Review Urine Culture Comments 06/25/18 06/25/18 06/25/18 Range/Units 07:00 07:00 07:00 WBC 8.6 (4.8-10.8) x10^3/uL RBC 3.69 L (4.20-5.40) 10^6/uL Hgb 12.4 (12.0-16.0) g/dL Hct 36.7 L (37.0-47.0) % MCV 99.3 H (81.0-99.0) fL MCH 33.7 H (27.0-31.0) pg MCHC 33.9 (32.0-36.0) g/dL RDW 17.7 H (12.0-15.0) % Plt Count 96 L (130-450) 10^3/uL MPV 9.1 (7.9-10.8) fL Neut # (Auto) 7.2 H (1.5-6.6) 10^3/uL Lymph # (Auto) 0.8 L (1.5-3.5) 10^3/uL [place] # (Auto) 0.5 (0.0-1.0) 10^3/uL Eos # (Auto) 0.0 (0.0-0.7) 10^3/uL Baso # (Auto) 0.0 (0.0-0.1) 10^3/uL Absolute Nucleated RBC 0.01 x10^3/uL Nucleated RBC % 0.1 /100WBC Manual Slide Review Indicated Platelet Estimate NORMAL (130-450,000) (NORMAL) Platelet Morphology NORMAL APPEARANCE (NORMAL) RBC Morph Micro Appear 1+ ANISOCYTOSIS (NORMAL) VBG pH (7.31-7.41) Ionized Calcium (1.15-1.33) mmol/L Sodium 141 (135-145) mmol/L Potassium 3.0 L (3.5-5.0) mmol/L Chloride 97 L (101-111) mmol/L Carbon Dioxide 29 (21-32) mmol/L Anion Gap 15.0 H (6-13) BUN 19 (6-20) mg/dL Creatinine 0.4 (0.4-1.0) mg/dL Estimated GFR (MDRD) 154 (>89) Glucose 93 (70-100) mg/dL POC Whole Bld Glucose (70 - 100) mg/dL Glycated Hemoglobin (4.6-6.2) % Estim Average Glucose (70-100) Lactic Acid (0.5-2.2) mmol/L Calcium 7.8 L (8.5-10.3) mg/dL Phosphorus 1.7 L (2.5-4.6) mg/dL Magnesium (1.7-2.8) mg/dL Total Bilirubin (0.2-1.0) mg/dL AST (10-42) IU/L ALT (10-60) IU/L Alkaline Phosphatase (42-121) IU/L Troponin I (<0.49) ng/mL Total Protein (6.7-8.2) g/dL Albumin 2.1 L (3.2-5.5) g/dL Globulin (2.1-4.2) g/dL Albumin/Globulin Ratio (1.0-2.2) Lipase (22-51) U/L TSH 0.39 (0.34-5.60) uIU/mL Urine Color Urine Clarity (CLEAR) Urine pH (5.0-7.5) PH Ur Specific [place] (1.002-1.030) Urine Protein (NEGATIVE) mg/dL Urine Glucose (UA) (NEGATIVE) mg/dL Urine Ketones (NEGATIVE) mg/dL Urine Occult Blood (NEGATIVE) Urine Nitrite (NEGATIVE) Urine Bilirubin (NEGATIVE) Urine Urobilinogen (NORMAL) E.U./dL Ur Leukocyte Esterase (NEGATIVE) Urine RBC (0-5) /HPF Urine WBC (0-5) /HPF Ur Squamous Epith Cells (<= Few) Urine Bacteria (None Seen) /HPF Ur Microscopic Review Urine Culture Comments 06/25/18 06/25/18 06/25/18 Range/Units 06:39 00:30 00:10 WBC (4.8-10.8) x10^3/uL RBC (4.20-5.40) 10^6/uL Hgb (12.0-16.0) g/dL Hct (37.0-47.0) % MCV (81.0-99.0) fL MCH (27.0-31.0) pg MCHC (32.0-36.0) g/dL RDW (12.0-15.0) % Plt Count (130-450) 10^3/uL MPV (7.9-10.8) fL Neut # (Auto) (1.5-6.6) 10^3/uL Lymph # (Auto) (1.5-3.5) 10^3/uL [place] # (Auto) (0.0-1.0) 10^3/uL Eos # (Auto) (0.0-0.7) 10^3/uL Baso # (Auto) (0.0-0.1) 10^3/uL Absolute Nucleated RBC x10^3/uL Nucleated RBC % /100WBC Manual Slide Review Platelet Estimate (NORMAL) Platelet Morphology (NORMAL) RBC Morph Micro Appear (NORMAL) VBG pH (7.31-7.41) Ionized Calcium (1.15-1.33) mmol/L Sodium (135-145) mmol/L Potassium (3.5-5.0) mmol/L Chloride (101-111) mmol/L Carbon Dioxide (21-32) mmol/L Anion Gap (6-13) BUN (6-20) mg/dL Creatinine (0.4-1.0) mg/dL Estimated GFR (MDRD) (>89) Glucose (70-100) mg/dL POC Whole Bld Glucose 85 102 H (70 - 100) mg/dL Glycated Hemoglobin (4.6-6.2) % Estim Average Glucose (70-100) Lactic Acid (0.5-2.2) mmol/L Calcium (8.5-10.3) mg/dL Phosphorus (2.5-4.6) mg/dL Magnesium (1.7-2.8) mg/dL Total Bilirubin (0.2-1.0) mg/dL AST (10-42) IU/L ALT (10-60) IU/L Alkaline Phosphatase (42-121) IU/L Troponin I (<0.49) ng/mL Total Protein (6.7-8.2) g/dL Albumin (3.2-5.5) g/dL Globulin (2.1-4.2) g/dL Albumin/Globulin Ratio (1.0-2.2) Lipase (22-51) U/L TSH (0.34-5.60) uIU/mL Urine Color YELLOW Urine Clarity HAZY (CLEAR) Urine pH 6.0 (5.0-7.5) PH Ur Specific [place] 1.015 (1.002-1.030) Urine Protein 30 H (NEGATIVE) mg/dL Urine Glucose (UA) NEGATIVE (NEGATIVE) mg/dL Urine Ketones 15 H (NEGATIVE) mg/dL Urine Occult Blood LARGE H (NEGATIVE) Urine Nitrite POSITIVE H (NEGATIVE) Urine Bilirubin NEGATIVE (NEGATIVE) Urine Urobilinogen 1 (NORMAL) (NORMAL) E.U./dL Ur Leukocyte Esterase SMALL H (NEGATIVE) Urine RBC TNTC H (0-5) /HPF Urine WBC 11-25 H (0-5) /HPF Ur Squamous Epith Cells FEW Squamous (<= Few) Urine Bacteria Many H (None Seen) /HPF Ur Microscopic Review INDICATED Urine Culture Comments INDICATED 06/24/18 06/24/18 06/24/18 Range/Units 23:55 23:55 23:55 WBC (4.8-10.8) x10^3/uL RBC (4.20-5.40) 10^6/uL Hgb (12.0-16.0) g/dL Hct (37.0-47.0) % MCV (81.0-99.0) fL MCH (27.0-31.0) pg MCHC (32.0-36.0) g/dL RDW (12.0-15.0) % Plt Count (130-450) 10^3/uL MPV (7.9-10.8) fL Neut # (Auto) (1.5-6.6) 10^3/uL Lymph # (Auto) (1.5-3.5) 10^3/uL [place] # (Auto) (0.0-1.0) 10^3/uL Eos # (Auto) (0.0-0.7) 10^3/uL Baso # (Auto) (0.0-0.1) 10^3/uL Absolute Nucleated RBC x10^3/uL Nucleated RBC % /100WBC Manual Slide Review Platelet Estimate (NORMAL) Platelet Morphology (NORMAL) RBC Morph Micro Appear (NORMAL) VBG pH (7.31-7.41) Ionized Calcium (1.15-1.33) mmol/L Sodium 139 (135-145) mmol/L Potassium 1.9 L* (3.5-5.0) mmol/L Chloride 86 L (101-111) mmol/L Carbon Dioxide 33 H (21-32) mmol/L Anion Gap 20.0 H (6-13) BUN 20 (6-20) mg/dL Creatinine 0.5 (0.4-1.0) mg/dL Estimated GFR (MDRD) 119 (>89) Glucose 105 H (70-100) mg/dL POC Whole Bld Glucose (70 - 100) mg/dL Glycated Hemoglobin (4.6-6.2) % Estim Average Glucose (70-100) Lactic Acid 1.9 (0.5-2.2) mmol/L Calcium 8.4 L (8.5-10.3) mg/dL Phosphorus (2.5-4.6) mg/dL Magnesium 2.0 (1.7-2.8) mg/dL Total Bilirubin 2.1 H (0.2-1.0) mg/dL AST 23 (10-42) IU/L ALT 13 (10-60) IU/L Alkaline Phosphatase 74 (42-121) IU/L Troponin I 0.05 (<0.49) ng/mL Total Protein 5.4 L (6.7-8.2) g/dL Albumin 2.3 L (3.2-5.5) g/dL Globulin 3.1 (2.1-4.2) g/dL Albumin/Globulin Ratio 0.7 L (1.0-2.2) Lipase 21 L (22-51) U/L TSH (0.34-5.60) uIU/mL Urine Color Urine Clarity (CLEAR) Urine pH (5.0-7.5) PH Ur Specific [place] (1.002-1.030) Urine Protein (NEGATIVE) mg/dL Urine Glucose (UA) (NEGATIVE) mg/dL Urine Ketones (NEGATIVE) mg/dL Urine Occult Blood (NEGATIVE) Urine Nitrite (NEGATIVE) Urine Bilirubin (NEGATIVE) Urine Urobilinogen (NORMAL) E.U./dL Ur Leukocyte Esterase (NEGATIVE) Urine RBC (0-5) /HPF Urine WBC (0-5) /HPF Ur Squamous Epith Cells (<= Few) Urine Bacteria (None Seen) /HPF Ur Microscopic Review Urine Culture Comments 06/24/18 Range/Units 23:55 WBC 7.1 (4.8-10.8) x10^3/uL RBC 4.01 L (4.20-5.40) 10^6/uL Hgb 13.6 (12.0-16.0) g/dL Hct 38.9 (37.0-47.0) % MCV 97.0 (81.0-99.0) fL MCH 33.9 H (27.0-31.0) pg MCHC 35.0 (32.0-36.0) g/dL RDW 17.6 H (12.0-15.0) % Plt Count 109 L (130-450) 10^3/uL MPV 8.6 (7.9-10.8) fL Neut # (Auto) 6.0 (1.5-6.6) 10^3/uL Lymph # (Auto) 0.5 L (1.5-3.5) 10^3/uL [place] # (Auto) 0.4 (0.0-1.0) 10^3/uL Eos # (Auto) 0.0 (0.0-0.7) 10^3/uL Baso # (Auto) 0.1 (0.0-0.1) 10^3/uL Absolute Nucleated RBC 0.01 x10^3/uL Nucleated RBC % 0.2 /100WBC Manual Slide Review Platelet Estimate (NORMAL) Platelet Morphology (NORMAL) RBC Morph Micro Appear (NORMAL) VBG pH (7.31-7.41) Ionized Calcium (1.15-1.33) mmol/L Sodium (135-145) mmol/L Potassium (3.5-5.0) mmol/L Chloride (101-111) mmol/L Carbon Dioxide (21-32) mmol/L Anion Gap (6-13) BUN (6-20) mg/dL Creatinine (0.4-1.0) mg/dL Estimated GFR (MDRD) (>89) Glucose (70-100) mg/dL POC Whole Bld Glucose (70 - 100) mg/dL Glycated Hemoglobin (4.6-6.2) % Estim Average Glucose (70-100) Lactic Acid (0.5-2.2) mmol/L Calcium (8.5-10.3) mg/dL Phosphorus (2.5-4.6) mg/dL Magnesium (1.7-2.8) mg/dL Total Bilirubin (0.2-1.0) mg/dL AST (10-42) IU/L ALT (10-60) IU/L Alkaline Phosphatase (42-121) IU/L Troponin I (<0.49) ng/mL Total Protein (6.7-8.2) g/dL Albumin (3.2-5.5) g/dL Globulin (2.1-4.2) g/dL Albumin/Globulin Ratio (1.0-2.2) Lipase (22-51) U/L TSH (0.34-5.60) uIU/mL Urine Color Urine Clarity (CLEAR) Urine pH (5.0-7.5) PH Ur Specific [place] (1.002-1.030) Urine Protein (NEGATIVE) mg/dL Urine Glucose (UA) (NEGATIVE) mg/dL Urine Ketones (NEGATIVE) mg/dL Urine Occult Blood (NEGATIVE) Urine Nitrite (NEGATIVE) Urine Bilirubin (NEGATIVE) Urine Urobilinogen (NORMAL) E.U./dL Ur Leukocyte Esterase (NEGATIVE) Urine RBC (0-5) /HPF Urine WBC (0-5) /HPF Ur Squamous Epith Cells (<= Few) Urine Bacteria (None Seen) /HPF Ur Microscopic Review Urine Culture Comments ABX Reporting Has patient been on IV antibiotics over the past 48 hours?: Yes Assessment/Plan - Problem List (1) UTI (urinary tract infection) Impression: UA indicate UTI, UA culture and sensitivity study is pending now continue treating with Rocephin (2) lethargic/Acute metabolic encephalopathy Conclusion/Plan: CT of head and TSH are unremarkable. pt's daughter report pt has not eaten for 4-5 days, pt is with hx of advanced alzheimer's dementia with behavioral disturbance on meds Zoloft and haloperidol hold Zoloft and haloperidol neuro check tele and vital monitor palliative care consult, will follow up (3) Hypokalemia Conclusion/Plan: improved, K is 3. continue K replacement, and lab monitor (4) Dehydration Conclusion/Plan: continue IVF and precaution of fluid overload (5) Alzheimer's dementia with behavioral disturbance Conclusion/Plan: advanced alzheimer's dementia with behavioral disturbance on meds Zoloft and haloperidol. Not pt is lethargic status. Patient is not on any neurocognitive agents to help with Alzheimer's dementia. continue support and neuro check (6) Failure to thrive in adult Conclusion/Plan: pt's DPOA report pt had not eaten for 4-5 days. it is likely caused by infection and advanced dementia consult with dietitian to follow and screen for malnutrition, once patient is mo re lucid and alert may optimize oral nutrition. (7) Anorexia Conclusion/Plan: Likely secondary to advanced dementia and UTI. consult with nutritional management and consult with SP (8) Chronic idiopathic thrombocytopenia Conclusion/Plan: d/c Heparin and add Lovenox will lab closely monitor (9) Abnormal EKG Conclusion/Plan: stable, hold Zoloft and haloperidol continue tele and vital repeated Troponin was at 0.05. (10) Advanced care planning/counseling discussion consult with palliative care. pt is full code now. pt's DPOA state she will re-considerate pt's code status. (11) pressure ulcer pt has pressure ulcer at her back buttock area, likely at stage 2-3 consult with wound care provider dress change, wound culture, continue Rocephin Qualifiers: Urinary tract infection type: acute cystitis Hematuria presence: with hematuria Qualified Code(s): N30.01 - Acute cystitis with hematuria
--- NOTE | 2018-06-25 17:13 | ADVANCE CARE PLANNING NOTE ---
Advance Care Planning - Date/Time Date: 06/25/18 Time: 17:11 - Purpose of encounter Text: advance care plan for pt - Parties in attendance Parties in attendance: pt's DPOA, her daughter, and me - Decisional capacity Decisional capacity of: pt is lethargic, could not response. pt has hx of advanced dementia. pt's DPOA, pt's daughter make the decision for her. - Subjective/Patient's story Subjective/Patient's story: pt had did not eat any thing for 4-5 days. pt has hx of advanced dementia with behaviours disturbance. pt was prescribed zoloft and haldol before. after discussed with pt's DPOA, pt's daughter about quality of life, and advance care plan, pt's DPOA make a decision to let pt have DNR - Objective/Medical story Objective/Medical Story: pt is lethargic, did not response and did not eat any thing for a few day. pt continue to be lethargic, and did not response to all care service team leader. pt has not eat any thing for 4-5 days. pt has hx of advanced dementia with behaviours disturbance. pt was prescribed zoloft and haldol before. after discussed with pt's DPOA, pt's daughter about quality of life, and advance care plan, pt's DPOA make a decision to let pt have DNR - Goals of Care Goals of care determinations: DNR for pt and let pt naturally - Plan Plan: DNR for pt, and consult with palliative care - Code Status Code Status: Do Not Attempt Resuscitation - Time Spent on Advance Care Planning Time spent on advance care plannin
[2018-06-25] MEDS: ACETAMINOPHEN 1,000 MG/100 ML 100 ML IV PRN (20:52)
[2018-06-26] MEDS: SODIUM CHLORIDE FLUSH 0.9% 10 ML SYRINGE IVP SCH ×3 (01:06→17:52)
[2018-06-26] MEDS: ACETAMINOPHEN 1,000 MG/100 ML 100 ML IV PRN (06:28)
[2018-06-26 06:47] LABS: BASOPHILS % (AUTO) 0.1 %; HGB - HEMOGLOBIN 11.6 g/dL (12.0-16.0); LYMPHOCYTES % (AUTO) 17.6 %; MEAN CORPUSCULAR HEMOGLOBIN 34.2 pg (27.0-31.0); MEAN CORPUSCULAR HGB CONC 33.8 g/dL (32.0-36.0); MEAN CORPUSCULAR VOLUME 101.2 fL (81.0-99.0); MEAN PLATELET VOLUME 8.8 fL (7.9-10.8); MONOCYTES # (AUTO) 0.6 10^3/uL (0.0-1.0); MONOCYTES % (AUTO) 9.9 %; NEUTROPHILS # (AUTO) 4.2 10^3/uL (1.5-6.6); NEUTROPHILS % (AUTO) 72.4 %; PLT - PLATELET COUNT 81 10^3/uL (130-450); RED BLOOD COUNT 3.39 10^6/uL (4.20-5.40); RED CELL DISTRIBUTION WIDTH 19.2 % (12.0-15.0); WHITE BLOOD COUNT 5.8 x10^3/uL (4.8-10.8)
[2018-06-26 07:02] LABS: ALBUMIN/GLOBULIN RATIO 0.8 (1.0-2.2); ALKALINE PHOSPHATASE 64 IU/L (42-121); ALT ALANINE AMINOTRANSFERASE 13 IU/L (10-60); AST ASPARTATE AMINOTRANSFERASE 19 IU/L (10-42); BILIRUBIN,TOTAL 0.6 mg/dL (0.2-1.0); BUN - BLOOD UREA NITROGEN 12 mg/dL (6-20); CALCIUM 7.5 mg/dL (8.5-10.3); CARBON DIOXIDE - CO2 27 mmol/L (21-32); CHLORIDE 103 mmol/L (101-111); GLUCOSE 112 mg/dL (70-100); SODIUM 139 mmol/L (135-145); TOTAL PROTEIN 4.5 g/dL (6.7-8.2)
[2018-06-26 07:07] LABS: CREATININE < 0.3 mg/dL (0.4-1.0)
[2018-06-26] MEDS ORDERED: DEXTROSE 5%-0.45% NACL 1,000 ML IV SCH (09:00)
[2018-06-26] MEDS ORDERED: ENOXAPARIN 30 MG/0.3 ML SYRINGE SUBQ SCH (09:00)
[2018-06-26] MEDS ORDERED: SODIUM CHLORIDE 0.9% 500 ML IV ONE (09:05)
[2018-06-26] MEDS: cefTRIAXone 2 GM in SODIUM CHLORIDE 0.9% MINIBAG 100 ML IV SCH (09:47)
[2018-06-26] MEDS: ASPIRIN 300 MG SUPP PR SCH (09:52)
[2018-06-26] MEDS: POLYETHYLENE GLYCOL 3350 17 GM PACKET PO SCH (09:52)
[2018-06-26] MEDS ORDERED: POTASSIUM PHOSPHATE 15 MMOL in SODIUM CHLORIDE 0.9% 250 ML IV ONE (10:00)
[2018-06-26] MEDS: MORPHINE 2 MG/ML SYRINGE IVP PRN (14:42)
[2018-06-26] MEDS: SODIUM CHLORIDE FLUSH 0.9% 10 ML SYRINGE IVP PRN (14:43)
[2018-06-26] MEDS ORDERED: ACETAMINOPHEN 650 MG SUPP PR PRN (15:52)
--- NOTE | 2018-06-26 16:07 | PROVIDER PROGRESS NOTE ---
Subjective - Prog Note Date Prog Note Date: 06/26/18 - Subjective Pt reports feeling: No change Subjective: pt is still lethargic, she did not response. pt's BP is still low. pt's daughter DANNY told nurse she want to do comfort care only to pt I discussed with pt's DPOA daughter, she request comfort care only to pt, ask antibiotics and Morphine for pt but d/c IVF. I support DPOA's decision. Current Medications - Current Medications Current Medications: Active Medications Acetaminophen (Tylenol) 650 mg AL Q6HR PRN PRN Reason: Pain or Fever > 38C (100.4F) Ceftriaxone Sodium 2 gm/ (Sodium Chloride) 100 mls @ 200 mls/hr IV DAILY [facility] Last Infusion: 06/26/18 10:20 Dose: Infused Mineral Oil (Cavilon) 1 applic TOP PRN PRN PRN Reason: Skin Care Last Admin: 06/26/18 14:43 Dose: 1 applic Morphine Sulfate (Morphine) 2 mg IVP Q2H PRN PRN Reason: PAIN Last Admin: 06/26/18 14:42 Dose: 2 mg Prochlorperazine Edisylate (Compazine Inj) 10 mg IVP Q6HR PRN PRN Reason: Nausea / Vomiting Sodium Chloride (Normal Saline Flush 0.9%) 10 ml IVP PRN PRN PRN Reason: NEEDED PER PROVIDER ORDERS Last Admin: 06/26/18 14:43 Dose: 10 ml Sodium Chloride (Normal Saline Flush 0.9%) 10 ml IVP 0100,0900,1700 [facility] Last Admin: 06/26/18 06:29 Dose: 10 ml Haloperidol [Haldol] 0.5 mg PO BID 06/24/18 Metoprolol Tartrate 25 mg PO BID 06/24/18 Sertraline [Zoloft] 25 mg PO DAILY 06/24/18 Objective - Vital Signs/Intake & Output Reviewed Vital Signs: Yes Vital Signs: Vital Signs x48h Temp Pulse Resp BP Pulse Ox 06/26/18 15:59 36.1 C L 103 H 16 87/53 L 94 06/26/18 11:47 36.7 C 92 20 102/60 99 06/26/18 08:39 36.7 C 83 16 92/56 L 100 Intake & Output: Intake & Output 05/1506/24/18 06/25/18 06/26/18 23:59 23:59 23:59 23:59 Intake Total 4557.500 1200 Output Total 100 0 Balance 4457.500 1200 - Objective General Appearance: positive: Alert, Lethargic ENT: positive: ENT inspection nml. negative: Purulent nasal drainage, Pharyngeal erythema Neck: positive: Nml inspection, Trachea midline. negative: Stiff neck, Tracheal deviation Respiratory: positive: Chest non-tender, No respiratory distress. negative: Wheezes, Rales, Rhonchi Cardiovascular: positive: Regular rate & rhythm, No murmur, No gallop. negative: Tachycardia, Bradycardia, JVD present, Systolic murmur, Diastolic murmur Peripheral Pulses: 2+ Radial (R), 2+ Radial (L), 2+ Dorsalis pedis (R), 2+ Dorsalis pedis (L) Abdomen: positive: Non-tender, Nml bowel sounds, No distention. negative: Tenderness, Guarding, Rebound Back: positive: Nml inspection Skin: positive: Warm, Dry, Pallor Extremities: negative: Calf tenderness, Marli's sign/cords Neurologic/Psychiatric: negative: Facial droop - Lab Results Fish Bones: 06/26/18 06:10 06/26/18 06:10 Other Labs: Lab Results x24hrs 06/26/18 06/26/18 06/26/18 Range/Units 06:10 06:10 06:10 WBC 5.8 (4.8-10.8) x10^3/uL RBC 3.39 L (4.20-5.40) 10^6/uL Hgb 11.6 L (12.0-16.0) g/dL Hct 34.3 L (37.0-47.0) % MCV 101.2 H (81.0-99.0) fL MCH 34.2 H (27.0-31.0) pg MCHC 33.8 (32.0-36.0) g/dL RDW 19.2 H (12.0-15.0) % Plt Count 81 L (130-450) 10^3/uL MPV 8.8 (7.9-10.8) fL Neut # (Auto) 4.2 (1.5-6.6) 10^3/uL Lymph # (Auto) 1.0 L (1.5-3.5) 10^3/uL Gem # (Auto) 0.6 (0.0-1.0) 10^3/uL Eos # (Auto) 0.0 (0.0-0.7) 10^3/uL Baso # (Auto) 0.0 (0.0-0.1) 10^3/uL Absolute Nucleated RBC 0.01 x10^3/uL Nucleated RBC % 0.2 /100WBC Sodium 139 (135-145) mmol/L Potassium 4.2 (3.5-5.0) mmol/L Chloride 103 (101-111) mmol/L Carbon Dioxide 27 (21-32) mmol/L Anion Gap 9.0 (6-13) BUN 12 (6-20) mg/dL Creatinine < 0.3 L (0.4-1.0) mg/dL Estimated GFR (MDRD) (>89) Glucose 112 H (70-100) mg/dL Calcium 7.5 L (8.5-10.3) mg/dL Phosphorus < 1.0 L* (2.5-4.6) mg/dL Total Bilirubin 0.6 (0.2-1.0) mg/dL AST 19 (10-42) IU/L ALT 13 (10-60) IU/L Alkaline Phosphatase 64 (42-121) IU/L Total Protein 4.5 L (6.7-8.2) g/dL Albumin 2.0 L (3.2-5.5) g/dL Globulin 2.5 (2.1-4.2) g/dL Albumin/Globulin Ratio 0.8 L (1.0-2.2) 25-OH Vitamin D Total (30-100) ng/mL 06/25/18 Range/Units 07:17 WBC (4.8-10.8) x10^3/uL RBC (4.20-5.40) 10^6/uL Hgb (12.0-16.0) g/dL Hct (37.0-47.0) % MCV (81.0-99.0) fL MCH (27.0-31.0) pg MCHC (32.0-36.0) g/dL RDW (12.0-15.0) % Plt Count (130-450) 10^3/uL MPV (7.9-10.8) fL Neut # (Auto) (1.5-6.6) 10^3/uL Lymph # (Auto) (1.5-3.5) 10^3/uL Gem # (Auto) (0.0-1.0) 10^3/uL Eos # (Auto) (0.0-0.7) 10^3/uL Baso # (Auto) (0.0-0.1) 10^3/uL Absolute Nucleated RBC x10^3/uL Nucleated RBC % /100WBC Sodium (135-145) mmol/L Potassium (3.5-5.0) mmol/L Chloride (101-111) mmol/L Carbon Dioxide (21-32) mmol/L Anion Gap (6-13) BUN (6-20) mg/dL Creatinine (0.4-1.0) mg/dL Estimated GFR (MDRD) (>89) Glucose (70-100) mg/dL Calcium (8.5-10.3) mg/dL Phosphorus (2.5-4.6) mg/dL Total Bilirubin (0.2-1.0) mg/dL AST (10-42) IU/L ALT (10-60) IU/L Alkaline Phosphatase (42-121) IU/L Total Protein (6.7-8.2) g/dL Albumin (3.2-5.5) g/dL Globulin (2.1-4.2) g/dL Albumin/Globulin Ratio (1.0-2.2) 25-OH Vitamin D Total 5 L (30-100) ng/mL ABX Reporting Has patient been on IV antibiotics over the past 48 hours?: Yes Sepsis Event Note (H) - Evaluation Current Stage of Sepsis: Ruled out Assessment/Plan - Problem List (1) Altered mental status Impression: 1, comfortable measure only per DPOA's request, d/c IVF, but continue antibiotics and add Morphine for pt 2, UTI continue Rocephin Qualifiers: Altered mental status type: coma Coma depth: [place] coma 3-8 Coma timing: in the field (EMT or ambulance) Qualified Code(s): R40.2431 - [place] coma scale score 3-8, in the field [EMT or ambulance] (4) Alzheimer's dementia with behavioral disturbance Qualifiers: Alzheimer's disease onset: unspecified onset Qualified Code(s): G30.9 - Alzheimer's disease, unspecified; F02.81 - Dementia in other diseases classified elsewhere with behavioral disturbance (9) UTI (urinary tract infection) Qualifiers: Urinary tract infection type: acute cystitis Hematuria presence: with hematuria Qualified Code(s): N30.01 - Acute cystitis with hematuria
[2018-06-27] MEDS: MORPHINE 2 MG/ML SYRINGE IVP PRN (00:11)
[2018-06-27] MEDS: SODIUM CHLORIDE FLUSH 0.9% 10 ML SYRINGE IVP SCH ×2 (00:11→11:52)
[2018-06-27 05:17] LABS: BASOPHILS % (AUTO) 0.1 %; HGB - HEMOGLOBIN 12.1 g/dL (12.0-16.0); LYMPHOCYTES # (AUTO) 0.4 10^3/uL (1.5-3.5); LYMPHOCYTES % (AUTO) 5.2 %; MEAN CORPUSCULAR HGB CONC 33.4 g/dL (32.0-36.0); MEAN CORPUSCULAR VOLUME 101.6 fL (81.0-99.0); MEAN PLATELET VOLUME 8.7 fL (7.9-10.8); MONOCYTES # (AUTO) 0.2 10^3/uL (0.0-1.0); MONOCYTES % (AUTO) 2.4 %; NEUTROPHILS # (AUTO) 7.4 10^3/uL (1.5-6.6); NEUTROPHILS % (AUTO) 92.3 %; PLT - PLATELET COUNT 84 10^3/uL (130-450); RED BLOOD COUNT 3.56 10^6/uL (4.20-5.40); RED CELL DISTRIBUTION WIDTH 18.2 % (12.0-15.0); WHITE BLOOD COUNT 8.1 x10^3/uL (4.8-10.8)
[2018-06-27 05:39] LABS: ALBUMIN 1.9 g/dL (3.2-5.5); ALBUMIN/GLOBULIN RATIO 0.8 (1.0-2.2); ALKALINE PHOSPHATASE 62 IU/L (42-121); ALT ALANINE AMINOTRANSFERASE 41 IU/L (10-60); AST ASPARTATE AMINOTRANSFERASE 110 IU/L (10-42); BUN - BLOOD UREA NITROGEN 10 mg/dL (6-20); CALCIUM 7.8 mg/dL (8.5-10.3); CARBON DIOXIDE - CO2 24 mmol/L (21-32); CHLORIDE 107 mmol/L (101-111); CREATININE < 0.3 mg/dL (0.4-1.0); GLUCOSE 117 mg/dL (70-100); SODIUM 142 mmol/L (135-145); TOTAL PROTEIN 4.2 g/dL (6.7-8.2)
[2018-06-27] MEDS ORDERED: POTASSIUM CHLOR 10 MEQ/100 ML 10 MEQ/100 ML BAG IV SCH (08:00)
[2018-06-27] MEDS ORDERED: ONDANSETRON 4 MG/2 ML VIAL IVP PRN (08:03)
[2018-06-27 08:28] VITALS: BP 111/59
[2018-06-27] MEDS ORDERED: MORPHINE 2 MG/ML CARPUJECT IVP PRN (11:50)
--- NOTE | 2018-06-27 12:13 | PROVIDER PROGRESS NOTE ---
Subjective - Prog Note Date Prog Note Date: 06/27/18 - Subjective Pt reports feeling: No change Subjective: pt is still unresponsive. DPOA request d/c antibiotics treatment to pt, and continue comport measure only. palliative care already saw pt, and plan d/c home with hospice care on tomorrow Current Medications - Current Medications Current Medications: Active Medications Acetaminophen (Tylenol) 650 mg SD Q6HR PRN PRN Reason: Pain or Fever > 38C (100.4F) Mineral Oil (Cavilon) 1 applic TOP PRN PRN PRN Reason: Skin Care Last Admin: 06/26/18 14:43 Dose: 1 applic Morphine Sulfate (Morphine (Carpuject)) 2 mg IVP Q2H PRN PRN Reason: PAIN Ondansetron HCl (Zofran Inj) 4 mg IVP Q4HR PRN PRN Reason: Nausea / Vomiting Prochlorperazine Edisylate (Compazine Inj) 10 mg IVP Q6HR PRN PRN Reason: Nausea / Vomiting Sodium Chloride (Normal Saline Flush 0.9%) 10 ml IVP PRN PRN PRN Reason: NEEDED PER PROVIDER ORDERS Last Admin: 06/26/18 14:43 Dose: 10 ml Sodium Chloride (Normal Saline Flush 0.9%) 10 ml IVP 0100,0900,1700 DARSHANA Last Admin: 06/27/18 11:52 Dose: 10 ml Haloperidol [Haldol] 0.5 mg PO BID 06/24/18 Metoprolol Tartrate 25 mg PO BID 06/24/18 Sertraline [Zoloft] 25 mg PO DAILY 06/24/18 Objective - Vital Signs/Intake & Output Reviewed Vital Signs: Yes Vital Signs: Vital Signs x48h Temp Pulse Resp BP Pulse Ox 06/27/18 07:45 36.8 C 118 H 14 111/59 L 97 Intake & Output: Intake & Output 06/24/18 06/25/18 06/26/18 06/27/18 23:59 23:59 23:59 23:59 Intake Total 4557.500 1200 0 Output Total 100 0 Balance 4457.500 1200 0 - Objective General Appearance: positive: Lethargic ENT: positive: ENT inspection nml. negative: Purulent nasal drainage, Pharyngeal erythema Neck: positive: Nml inspection, Thyroid nml, Trachea midline. negative: Thyromegaly, Lymphadenopathy (R), Lymphadenopathy (L) Respiratory: positive: Chest non-tender, No respiratory distress. negative: Wheezes, Rales, Rhonchi Cardiovascular: positive: No murmur, No gallop, Tachycardia. negative: Bradycardia, Systolic murmur, Diastolic murmur Peripheral Pulses: 2+ Radial (R), 2+ Radial (L), 2+ Dorsalis pedis (R), 2+ Dorsalis pedis (L) Abdomen: positive: Non-tender, No distention. negative: Tenderness, Guarding, Rebound Back: positive: Nml inspection Skin: positive: Warm, Dry, Pallor. negative: Cyanosis, Diaphoresis Extremities: positive: Non-tender. negative: Calf tenderness, Marli's sign/cords Neurologic/Psychiatric: negative: Facial droop - Lab Results Fish Bones: 06/27/18 04:50 06/27/18 04:50 Other Labs: Lab Results x24hrs 06/27/18 06/27/18 Range/Units 04:50 04:50 WBC 8.1 (4.8-10.8) x10^3/uL RBC 3.56 L (4.20-5.40) 10^6/uL Hgb 12.1 (12.0-16.0) g/dL Hct 36.2 L (37.0-47.0) % MCV 101.6 H (81.0-99.0) fL MCH 34.0 H (27.0-31.0) pg MCHC 33.4 (32.0-36.0) g/dL RDW 18.2 H (12.0-15.0) % Plt Count 84 L (130-450) 10^3/uL MPV 8.7 (7.9-10.8) fL Neut # (Auto) 7.4 H (1.5-6.6) 10^3/uL Lymph # (Auto) 0.4 L (1.5-3.5) 10^3/uL Raw[place]ins # (Auto) 0.2 (0.0-1.0) 10^3/uL Eos # (Auto) 0.0 (0.0-0.7) 10^3/uL Baso # (Auto) 0.0 (0.0-0.1) 10^3/uL Absolute Nucleated RBC 0.01 x10^3/uL Nucleated RBC % 0.2 /100WBC Sodium 142 (135-145) mmol/L Potassium 3.0 L (3.5-5.0) mmol/L Chloride 107 (101-111) mmol/L Carbon Dioxide 24 (21-32) mmol/L Anion Gap 11.0 (6-13) BUN 10 (6-20) mg/dL Creatinine < 0.3 L (0.4-1.0) mg/dL Estimated GFR (MDRD) (>89) Glucose 117 H (70-100) mg/dL Calcium 7.8 L (8.5-10.3) mg/dL Total Bilirubin 1.0 (0.2-1.0) mg/dL AST 110 H (10-42) IU/L ALT 41 (10-60) IU/L Alkaline Phosphatase 62 (42-121) IU/L Total Protein 4.2 L (6.7-8.2) g/dL Albumin 1.9 L (3.2-5.5) g/dL Globulin 2.3 (2.1-4.2) g/dL Albumin/Globulin Ratio 0.8 L (1.0-2.2) ABX Reporting Has patient been on IV antibiotics over the past 48 hours?: No Sepsis Event Note (H) - Evaluation Current Stage of Sepsis: Ruled out Assessment/Plan - Problem List (1) Unresponsive state Impression: pt continue to be unresponsive since pt was admitted. pt's DPOA choose comfort measure only, no IVF or antibiotics continue Morphine for pain PRN no hospice care on weekend, plan d/c home with hospice care on tomorrow (2) Comfort measures only status Impression: DPOA choose comfort measure only for pt. pt is DNR continue Morphine for Pain PRN. No IVF and antibiotics for pt per DPOA's request. (3) Altered mental status Qualifiers: Altered mental status type: coma Coma depth: [place] coma 3-8 Coma timing: in the field (EMT or ambulance) Qualified Code(s): R40.2431 - [place] coma scale score 3-8, in the field [EMT or ambulance] (6) Alzheimer's dementia with behavioral disturbance Qualifiers: Alzheimer's disease onset: unspecified onset Qualified Code(s): G30.9 - Alzheimer's disease, unspecified; F02.81 - Dementia in other diseases classified elsewhere with behavioral disturbance (11) UTI (urinary tract infection) Qualifiers: Urinary tract infection type: acute cystitis Hematuria presence: with hematuria Qualified Code(s): N30.01 - Acute cystitis with hematuria
[2018-06-27] MEDS ORDERED: MORPHINE SOL 10 MG/0.5 ML SYRINGE PO PRN (15:42)
--- NOTE | 2018-06-27 16:38 | DISCHARGE SUMMARY ---
Discharge Summary Discharge Date: 06/27/18 Discharging Provider: HERR Primary Care Provider: Anthony Jang Code Status: Do Not Attempt Resuscitation Discharge Disposition: 20 Discharge Facility Name: - DIAGNOSES Admission Diagnoses: (1) UTI (urinary tract infection) (2) Acute metabolic encephalopathy (3) Hypokalemia (4) Dehydration (5) Alzheimer's dementia with behavioral disturbance (6) Failure to thrive in adult (7) Anorexia (8) Chronic idiopathic thrombocytopenia (9) Abnormal EKG (10) Nephrolithiasis (11) Advanced care planning/counseling discussion Discharge Diagnoses with Status of Each Condition: pt at 1630 - HPI History of Present Illness: refer from Dr. Sandoval's HPI on 06/25/18 This is a 77-year-old female with a history of Alzheimer's dementia with behavioral disturbance, OP-dyphagia, for which she was on Zoloft and haloperidol, history of hyperlipidemia, hypertension, goiter, borderline type 2 diabetes mellitus, childhood polio with paraplegia, chronic thrombocytopenia, macular degeneration who apparently stopped taking medications and p.o. intake for more than 24 hours per family who were concerned about patient's decline in mental status as well as furthering anorexia with associated weakness. Patient was taken to Clinic and was seen by PMD couple days ago for diminishing LOC and had BP med added, but no other changes, and was encouraged to take fluids. The patient's daughter and granddaughter state she has been having a progressive decrease in alertness and interaction over the last 4 to 5 days. Last day and a half she not been taking any food or fluids despite being offered. She is only opening her eyes to tactile stimulus or verbal today. They called her primary care yesterday where encouraged to give her a lot of fluids. They were given an appointment for next week. The daughter states the patient has not had any fever nor any vomiting or diarrhea. There has been a little bit of a cough but no obvious general head cold. It is been mainly just to slow progressive decreased interaction and tiredness and poor responsiveness. The daughter feels she is now dehydrated. She had been getting her usual medications. There had not been any recent change in doses except for the addition of a blood pressure medicine for which they had not been able to get it from the pharmacy yet. On initial lab examination patient's potassium was 1.9, CO2 of 20, creatinine 0.5 with a glucose of 102, first set troponin 0.05, WBC 7.1, platelet 109, calcium 8.4, albumin 2.3 with a corrected calcium of 9.8, LFTs within normal limits, lipase within normal limits, lactic acid 1.9, T bilirubin 2.1. Imaging studies showed a CT the head that was unremarkable, chest x-ray showing what appears to be a left lobe abnormality possible scarring from prior polio. EKG showed sinus rhythm with borderline repolarization ST-T wave abnormalities with a prolonged QT. UA showed pyuria plus hematuria with 15+ ketones. Patient was somnolent and lethargic difficult to arouse, poor venous access, patient was given IV fluids in the ED along with Rocephin 1 dose. - HOSPITAL COURSE Hospital Course: pt has been unresponsive since she was admitted. Pt was found to have UTI as well in the admission. Pt has hx of advanced dementia with behaviour disturbance, for which pt was treated with Zoloft and haldol for long period time per pt's daughter reported. pt has never been awaked in this admission. Palliative care was consulted. Pt's DPOA, her daughter agreed to change pt's code status from full code to DNR. After that, DPOA also requested comfort measure only for pt, and request d/c IVF and then d/c the antibiotics treatment, and request Morphine for pain control. pt finally peaceful at this afternoon 1630. pt's daughter and her family presented at pt's bedside when pt was . I assessed pt and confirm pt's at 1630. I expressed my support and endorsement to pt and her family. - ALLERGIES Allergies/Adverse Reactions: Allergies Allergy/AdvReac Type Severity Reaction Status Date / Time lorazepam AdvReac Anxiety Verified 06/24/18 23:18 - MEDICATIONS Home Medications: Ambulatory Orders Medication Instructions Recorded Confirmed Haloperidol [Haldol] 0.5 mg PO BID 06/24/18 06/24/18 Metoprolol Tartrate 25 mg PO BID 06/24/18 06/24/18 Sertraline [Zoloft] 25 mg PO DAILY 06/24/18 06/24/18 - PHYSICAL EXAM AT DISCHARGE Physical Exam Other/Comments: I assessed pt's and confirm pt's as the followin, confirmed pt's identity 2, pt had obviously no sign of life 3, pt had no respiratory effort 4, pt did not respond to pain stimuli 5, pt had fixed and dilated pupils 6, pt had no carotid artery pulse 7, pt had no heart sounds and no respiratory sound by auscultation. - LABS Result Diagrams: 06/27/18 04:50 06/27/18 04:50 - FOLLOW UP Follow Up: pt at 1630 06/27/18 - TIME SPENT Time Spent in Discharge (Minutes): 60
== END 2018-06-27 16:30 | disposition expired | DRG 689 ==
LOC: ED 23:09 → MS2 06-25 01:14
PROVIDERS: ADMIT Family Medicine; ATTEND Nurse Practitioner Gerontology
DX: N30.01 Acute cystitis with hematuria (principal); G93.41 Metabolic encephalopathy; N39.0 Urinary tract infection, site not specified; F02.81 Dementia in other diseases classified elsewhere, unspecified severity, with behavioral disturbance; D69.3 Immune thrombocytopenic purpura; G82.20 Paraplegia, unspecified; E87.6 Hypokalemia; E86.0 Dehydration; L89.150 Pressure ulcer of sacral region, unstageable; L89.320 Pressure ulcer of left buttock, unstageable; G30.9 Alzheimer's disease, unspecified; R62.7 Adult failure to thrive; R63.0 Anorexia; I95.9 Hypotension, unspecified; E80.6 Other disorders of bilirubin metabolism; I45.81 Long QT syndrome; R13.12 Dysphagia, oropharyngeal phase; E78.5 Hyperlipidemia, unspecified; I10 Essential (primary) hypertension; E11.9 Type 2 diabetes mellitus without complications; E04.9 Nontoxic goiter, unspecified; J98.4 Other disorders of lung; R53.1 Weakness; B91 Sequelae of poliomyelitis; R39.81 Functional urinary incontinence; F41.9 Anxiety disorder, unspecified; F32.9 Major depressive disorder, single episode, unspecified; H35.30 Unspecified macular degeneration; Z66 Do not resuscitate; Z51.5 Encounter for palliative care; Z68.20 Body mass index [BMI] 20.0-20.9, adult; Z79.899 Other long term (current) drug therapy; Z90.49 Acquired absence of other specified parts of digestive tract; Z87.891 Personal history of nicotine dependence; Z99.3 Dependence on wheelchair
CPT/HCPCS: 36415; 51701; 70450; 71045; 76770; 80053; 80069; 81001; 82306; 82330; 83036; 83605; 83690; 83735; 84100; 84443; 84484; 85025; 87040; 87077; 87086; 87181; 93005; 99205; 99284; A6250; A9270; J0131; J1650; J2270; 81003; 82652